=== PATIENT | female | born 1965 | race American Indian/Alaskan Native ===

== ENCOUNTER 2017-01-19 06:04 | Day surgery (SDC) | payer OTHER ==
[2017-01-19] MEDS ORDERED: WATER FOR IRRIG STERILE IR ONE (07:27)
[2017-01-19] MEDS ORDERED: DIPRIVAN 10 MG/ML IV ONE (07:30)
--- NOTE | 2017-01-19 07:38 | Anesthesia Consultation ---
Anesthesia Consult and Med Hx Date of service: 01/19/17 - Airway Anesthetic Teeth Evaluation: Good ROM Head & Neck: Adequate Mental/Hyoid Distance: Adequate Mallampati Class: Class II Intubation Access Assessment: Probably Good - Pulmonary Exam CTA: Yes - Cardiac Exam Cardiac Exam: RRR - Pre-Operative Health Status ASA Pre-Surgery Classification: ASA3 Proposed Anesthetic Plan: MAC - Pulmonary Hx Smoking: No Hx Sleep Apnea: Yes (CPAP) - Cardiovascular System Hx Hypertension: No (on high cholesterol meds) - Other Systems Hx Obesity: Yes - Additional Comments Anesthesia Medical History Comments: NAC
--- NOTE | 2017-01-19 07:39 | Anesthesia Day of Surgery ---
Anesthesia Day of Surgery - Day of Surgery Patient Examined: Yes Patient H&P Reviewed: Yes Patient is NPO: Yes
[2017-01-19] MEDS ORDERED: NACL 0.9% 1000 ML 1,000 ML IV SCH (08:00)
--- NOTE | 2017-01-19 08:46 | Post Anesthesia Evaluation ---
- Post Anesthesia Evaluation Patient Participated: Yes Airway Patent: Yes Stable Respiratory Function: Yes Nausea/Vomiting: No Temp > 96.8F: Yes Pain Manageable: Yes Adequeate Hydration: Yes Anesthesia Complications: No Block Receding Appropriately: Not Applicable Patient on Ventilator: No
--- NOTE | 2017-01-19 08:50 | Discharge Summary ---
Providers - Providers Date of discharge: 01/19/17 Attending physician: YOLIS KENNEDY Primary care physician: BETH GREER Hospitalization Condition: Good Procedures: egd Disposition: DC- TO HOME OR SELFCARE Core Measure Documentation - Palliative Care Palliative Care/ Comfort Measures: Not Applicable - Core Measures Any of the following diagnoses?: none Exam - Physical Exam Narrative exam: unchanged from pre-op - Constitutional Vitals: Temp Pulse Resp BP Pulse Ox 98 F 60 16 130/70 98 01/19/17 07:57 01/19/17 07:57 01/19/17 07:57 01/19/17 07:57 01/19/17 07:57 Plan Activity: no restrictions Weight Bearing Status: Full Weight Bearing Diet: regular Follow up with: BETH GREER DO [Primary Care Provider] - 7 Days
--- NOTE | 2017-01-19 09:00 | Operative Report ---
Operative Report Operative Report: OPERATIVE REPORT - EGD DATE 01/19/17 SURGERY: Upper endoscopy. SURGEON: Mario Bermudez M.D. PROCEDURE: 1. EGD 2. gastric mucosal biopsy PRE OP DX: dyspepsia POST OP DX: 1. hiatal hernia 2. gastritis TYPE OF ANESTHESIA: MAC. ESTIMATED BLOOD LOSS: None. COMPLICATIONS: None. SPECIMENS REMOVED: None. FINDINGS: 1. Small hiatal hernia. 2. Otherwise, normal esophagus, stomach and first portion of duodenum. INDICATIONS:INDICATION FOR PROCEDURE: Patient is a 51-year-old female with a long history of morbid obesity. She is planned to have a weight loss procedure and is here for preoperative planning EGD. We are looking for any pathology that may be prohibitive for planned bariatric surgery. PROCEDURE DETAILS: After consent was reviewed, patient was taken back to the operating room where patient was placed in the left lateral decubitus position and a bite block was placed in the mouth. After a time-out was called, MAC anesthesia was initiated. I then passed the endoscope into her oropharynx, into her esophagus, visualized the entire esophagus, which was all within normal limits. I then visualized the stomach and the first portion of the duodenum and there were no abnormalities I could clearly visualize with the exception of patchy cobble stoning of the mucosa consistent with chronic gastritis. A forceps biopsy was performed of the mucosa. I then retroflexed the scope in the stomach and visualized the hiatus and I could see a moderate sized hiatal hernia. I then desufflated the stomach and removed the endoscope. Patient tolerated procedure well and was transferred to recovery room in good and stable condition.
[2017-01-19 11:29] VITALS: BP 111/70
== END 2017-01-19 06:05 | disposition home or self-care (01) ==
LOC: GIO 06:04
PROVIDERS: ATTEND Specialist
DX: K31.89 Other diseases of stomach and duodenum (principal); K44.9 Diaphragmatic hernia without obstruction or gangrene; I10 Essential (primary) hypertension; E66.01 Morbid (severe) obesity due to excess calories; E78.00 Pure hypercholesterolemia, unspecified; Z90.49 Acquired absence of other specified parts of digestive tract; Z98.890 Other specified postprocedural states
CPT/HCPCS: 43239; 88305; 88342; J2704; J7030

== ENCOUNTER 2017-02-10 16:49 | Emergency (ER) | payer OTHER ==
[2017-02-10 17:40] LABS: Bacteria,Urine 1+ /HPF (Negative); Bilirubin,Urine SM (Negative); Blood,Urine MOD (Negative); Ketones,Urine 80 mg/dL (Negative); Leukocyte Esterase,Urine LG (Negative); Mucus,Urine 3+ /HPF; Nitrite,Urine NEG (Negative)
[2017-02-10 17:43] LABS: Basophils % (Auto) 0.6 % (0.0-1.8); Eosinophils % (Auto) 1.6 % (0.0-4.3); Mean Corpuscular HGB Conc 33 % (30-34); Mean Corpuscular Hemoglobin 30 pg (28-32); Mean Corpuscular Volume 89 fl (79-97); Platelet Count 262 K/mm3 (140-440); Red Blood Count 4.71 M/mm3 (3.65-5.03); Red Cell Distribution Width 13.7 % (13.2-15.2); White Blood Count 9.7 K/mm3 (4.5-11.0)
[2017-02-10 17:58] LABS: Anion Gap 24 mmol/L; BUN/Creatinine Ratio 30; Blood Urea Nitrogen 18 mg/dL (7-17); Calcium 9.9 mg/dL (8.4-10.2); Carbon Dioxide 25 mmol/L (22-30); Chloride 99.2 mmol/L (98-107); Glucose 106 mg/dL (65-100); Potassium 3.8 mmol/L (3.6-5.0); Sodium 144 mmol/L (137-145)
[2017-02-11] MEDS ORDERED: ZOFRAN IV ONE (01:49)
[2017-02-11] MEDS ORDERED: NACL 0.9% 1000 ML 1,000 ML IV ONE (01:50)
--- NOTE | 2017-02-11 02:53 | Emergency Department Report ---
<HARLEEN HUGGINS - Last Filed: 02/11/17 07:36> ED General Adult HPI - General Chief complaint: Nausea/Vomiting/Diarrhea Stated complaint: VOMITING Time Seen by Provider: 02/11/17 01:48 - Related Data Home Medications Medication Instructions Recorded Confirmed Last Taken Estradiol 0.5 mg PO DAILY 01/19/17 01/19/17 01/19/17 Folic Acid 1 mg PO DAILY 01/19/17 01/19/17 01/19/17 Lovastatin 20 mg PO DAILY 01/19/17 01/19/17 01/19/17 Progesterone Micronized 200 mg PO HS 01/19/17 01/19/17 01/19/17 Cholecalciferol Vit D3 [Vitamin D3] 5,000 unit PO QDAY 01/23/17 01/23/17 Previous Rx's Medication Instructions Recorded Last Taken Type Magnesium Citrate 295 ml PO ONCE #1 solution 02/11/17 Unknown Rx Ondansetron [Zofran TAB] 4 mg PO Q8HR PRN #15 tablet 02/11/17 Unknown Rx Allergies Allergy/AdvReac Type Severity Reaction Status Date / Time No Known Allergies Allergy Verified 01/19/17 18:40 ED Review of Systems ROS: Stated complaint: VOMITING Other details as noted in HPI ED Past Medical Hx - Medications Home Medications: Home Medications Medication Instructions Recorded Confirmed Last Taken Type Estradiol 0.5 mg PO DAILY 01/19/17 01/19/17 01/19/17 History Folic Acid 1 mg PO DAILY 01/19/17 01/19/17 01/19/17 History Lovastatin 20 mg PO DAILY 01/19/17 01/19/17 01/19/17 History Progesterone Micronized 200 mg PO HS 01/19/17 01/19/17 01/19/17 History Cholecalciferol Vit D3 [Vitamin D3] 5,000 unit PO QDAY 01/23/17 01/23/17 History Magnesium Citrate 295 ml PO ONCE #1 solution 02/11/17 Unknown Rx Ondansetron [Zofran TAB] 4 mg PO Q8HR PRN #15 tablet 02/11/17 Unknown Rx ED Course Vital Signs 02/10/17 02/11/17 02/11/17 16:56 03:54 04:00 Temperature 99.2 F 98.3 F Pulse Rate 98 H 79 Respiratory 18 14 Rate Blood Pressure 133/90 132/99 Blood Pressure [Right] O2 Sat by Pulse 98 98 Oximetry 02/11/17 02/11/17 02/11/17 04:16 04:30 04:46 Temperature Pulse Rate 86 82 73 Respiratory 12 15 16 Rate Blood Pressure 132/99 133/81 132/99 Blood Pressure [Right] O2 Sat by Pulse Oximetry 02/11/17 02/11/17 02/11/17 05:00 05:15 05:58 Temperature Pulse Rate 78 70 97 H Respiratory 16 17 12 Rate Blood Pressure 125/78 125/78 125/78 Blood Pressure [Right] O2 Sat by Pulse Oximetry 02/11/17 02/11/17 02/11/17 06:06 06:16 06:30 Temperature Pulse Rate 93 H 82 94 H Respiratory 17 16 17 Rate Blood Pressure 125/78 125/78 121/88 Blood Pressure [Right] O2 Sat by Pulse Oximetry 02/11/17 07:38 Temperature Pulse Rate 88 Respiratory 16 Rate Blood Pressure Blood Pressure 129/84 [Right] O2 Sat by Pulse 99 Oximetry - Consultations Consultation #1: 02/11/17 07:[address] Snell callback, and I notified her of the negative CAT scan studies. Patient is being discharged. ED Medical Decision Making - Lab Data Result diagrams: 02/10/17 17:22 02/10/17 17:22 Critical care attestation.: If time is entered above; I have spent that time in minutes in the direct care of this critically ill patient, excluding procedure time. ED Disposition Clinical Impression: Nausea and vomiting Qualifiers: Vomiting type: unspecified Vomiting Intractability: unspecified Qualified Code( s): R11.2 - Nausea with vomiting, unspecified Constipation Qualifiers: Constipation type: unspecified constipation type Qualified Code(s): K59.00 - Constipation, unspecified Disposition: DC-01 TO HOME OR SELFCARE Condition: Stable Instructions: Acute Nausea and Vomiting (ED) Prescriptions: Magnesium Citrate 295 ml PO ONCE #1 solution Ondansetron [Zofran TAB] 4 mg PO Q8HR PRN #15 tablet PRN Reason: Nausea Referrals: [facility] [Other] - 3-5 Days Time of Disposition: 07:36 <YESSENIA HOYOS - Last Filed: 10/15/17 21:15> ED General Adult HPI - General Source: patient Mode of arrival: Ambulatory Limitations: No Limitations - History of Present Illness Initial comments: Patient is a 51-year-old female history of gastric bypass and obesity who presents with nausea vomiting and constipation which has been going on for the last 3 weeks. Patient states however that the nausea and vomiting has gotten very severe for the last 3 days. Patient states that it's very hard for her to keep anything down. She also hasn't had much of a bowel movement in the last 3 weeks. She states that she had a small bowel movement on Sunday using docusate. The bowel movement was very hard. She denies having any abdominal pain or having any chest pain or shortness of breath. Patient's vomit is nonbloody nonbilious. ED Review of Systems Constitutional: denies: chills, fever Eyes: denies: eye pain, eye discharge, vision change ENT: denies: ear pain, throat pain Respiratory: denies: cough, shortness of breath, wheezing Cardiovascular: denies: chest pain, palpitations Endocrine: no symptoms reported Gastrointestinal: nausea, vomiting. 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) Hx HIV: No Additional medical history: morbid obesity - Surgical History Past Surgical History?: Yes Hx Appendectomy: Yes Additional Surgical History: Gastric sleeve 01-23-2017 - Social History Smoking Status: Never Smoker Substance Use Type: Alcohol, Non Opiate Pain, Prescribed ED Physical Exam - General Limitations: No Limitations General appearance: alert, in distress - Head Head exam: Present: atraumatic, normocephalic - Eye Eye exam: Present: normal appearance - ENT ENT exam: Present: mucous membranes dry - Neck Neck exam: Present: normal inspection - Respiratory Respiratory exam: Present: normal lung sounds bilaterally. Absent: respiratory distress - Cardiovascular Cardiovascular Exam: Present: normal rhythm, tachycardia. Absent: systolic murmur, diastolic murmur, rubs, gallop - GI/Abdominal GI/Abdominal exam: Present: soft, normal bowel sounds - Neurological Exam Neurological exam: Present: alert, oriented X3 - Psychiatric Psychiatric exam: Present: normal affect, normal mood - Skin Skin exam: Present: warm, dry, intact, normal color. Absent: rash ED Medical Decision Making - Lab Data Result diagrams: 02/10/17 17:22 02/11/17 06:56 Lab Results 02/10/17 02/10/17 02/10/17 Range/Units 17:18 17:22 17:22 WBC 9.7 (4.5-11.0) K/mm3 RBC 4.71 (3.65-5.03) M/mm3 Hgb 14.0 (10.1-14.3) gm/dl Hct 42.0 (30.3-42.9) % MCV 89 (79-97) fl MCH 30 (28-32) pg MCHC 33 (30-34) % RDW 13.7 (13.2-15.2) % Plt Count 262 (140-440) K/mm3 Lymph % (Auto) 10.8 L (13.4-35.0) % [place] % (Auto) 9.9 H (0.0-7.3) % Eos % (Auto) 1.6 (0.0-4.3) % Baso % (Auto) 0.6 (0.0-1.8) % Lymph # 1.1 L (1.2-5.4) K/mm3 [place] # 1.0 H (0.0-0.8) K/mm3 Eos # 0.2 (0.0-0.4) K/mm3 Baso # 0.1 (0.0-0.1) K/mm3 Seg Neutrophils % 77.1 H (40.0-70.0) % Seg Neutrophils # 7.5 (1.8-7.7) K/mm3 Carbon Dioxide 25 (22-30) mmol/L BUN 18 H (7-17) mg/dL Creatinine 0.6 L (0.7-1.2) mg/dL Estimated GFR > 60 ml/min BUN/Creatinine Ratio 30 % Glucose 106 H (65-100) mg/dL Calcium 9.9 (8.4-10.2) mg/dL Urine Color [place] (Yellow) Urine Turbidity Clear (Clear) Urine pH 5.0 (5.0-7.0) Ur Specific [place] 1.032 H (1.003-1.030) Urine Protein 100 mg/dl (Negative) mg/dL Urine Glucose (UA) Neg (Negative) mg/dL Urine Ketones 80 (Negative) mg/dL Urine Blood Mod (Negative) Urine Nitrite Neg (Negative) Urine Bilirubin Sm (Negative) Urine Ictotest Negative (Negative) Urine Urobilinogen 4.0 (<2.0) mg/dL Ur Leukocyte Esterase Lg (Negative) Urine WBC (Auto) 33.0 H (0.0-6.0) /HPF Urine RBC (Auto) 53.0 (0.0-6.0) /HPF U Epithel Cells (Auto) 17.0 H (0-13.0) /HPF Urine Bacteria (Auto) 1+ (Negative) /HPF Hyaline Casts 6 /LPF Urine Mucus 3+ /HPF - Medical Decision Making Chief medical diagnosis: Bowel obstruction Differential medical diagnosis: Hypokalemia, gastritis, GERD CBC, CMP, IV hydration, IV Zofran and CT abdomen and pelvis with oral contrast Patient has been able to tolerate by mouth CT scan shows no acute process in the abdomen no blockage. I will send patient home after Dr. Snell calls back. I will sign out patient to Dr. Ramirez I will send patient home with mag citrate and Zofran to go home for her nausea. Discussed plan with patient patient MRSA plan additional verbal discharge instructions were given. ED Disposition Is pt being admited?: No Does the pt Need Aspirin: No
[2017-02-11] MEDS ORDERED: MAGNESIUM SULFATE 2GM/50ML 2 GM/50 ML BAG IV ONE (04:54)
--- NOTE | 2017-02-11 06:50 | Cat Scan Report ---
FINAL REPORT EXAM: CT ABDOMEN PELVIS W CON HISTORY: n/v and constipation recent gastric bypass surgery TECHNIQUE: Routine axial imaging was obtained of the abdomen pelvis following intravenous injection of iodinated contrast. Sagittal and coronal reconstructions were reviewed. FINDINGS: The lung bases are clear. Pleural fluid is not seen. There is a moderate size hiatal hernia at the GE junction. The liver is normal in size and reveals several low-density foci in the right hepatic lobe measure up to 14 millimeters in diameter. These do not appear to be simple cysts. They may represent hemangiomas. The gallbladder, pancreas, spleen and adrenal glands appear normal. The kidneys enhance normally. There are postsurgical changes the stomach compatible with gastric bypass surgery. The vascular structures enhance normally. The bowel loops are normal in caliber. There is no evidence of adenopathy. In the pelvis the uterus is normal in size and contains of fluid in the endometrial cavity. There is a small amount of free fluid in the cul-de-sac. The bladder appears normal. The skeletal structures reveal arthritic changes in the L5-S1 level in the lumbar spine. IMPRESSION: Previous gastric bypass surgery. No acute process in the abdomen. Nonspecific low-density foci in the right hepatic lobe as described. With these represent hemangiomas is uncertain. Ultrasonography of the liver is recommended for further evaluation. Nonspecific fluid and thickening of the endometrial cavity. Pelvic sonography is recommended for further evaluation. Small amount of free fluid in the cul-de-sac.
[2017-02-11] MEDS ORDERED: PHENERGAN PO ONE (07:14)
[2017-02-11 07:39] VITALS: BP 129/84
[2017-02-11 07:39] LABS: BUN/Creatinine Ratio 43; Blood Urea Nitrogen 17 mg/dL (7-17); Calcium 9.4 mg/dL (8.4-10.2); Carbon Dioxide 18 mmol/L (22-30); Chloride 103.8 mmol/L (98-107); Glucose 116 mg/dL (65-100); Potassium 3.6 mmol/L (3.6-5.0); Sodium 143 mmol/L (137-145)
[2017-02-11 07:49] LABS: Anion Gap 25 mmol/L
== END 2017-02-11 07:47 | disposition home or self-care (01) ==
LOC: ED 16:49
DX: K59.00 Constipation, unspecified (principal)
CPT/HCPCS: 36415; 74177; 80048; 81001; 85025; 96361; 96365; 96375; 99284; J2405; J3475; J7030; Q9967; Q0169

== ENCOUNTER 2017-03-07 17:08 | Inpatient (IN) | payer OTHER ==
[2017-03-07] MEDS ORDERED: MYLICON PO PRN (17:13)
[2017-03-07] MEDS ORDERED: APRESOLINE IV PRN (17:13)
[2017-03-07] MEDS ORDERED: PHENERGAN PR SCH (18:00)
[2017-03-07] MEDS ORDERED: NACL 0.9% 1000 ML 1,000 ML IV SCH (18:00)
[2017-03-07] MEDS ORDERED: LACTATED RINGERS 1,000 ML IV SCH ×2 (18:00→22:00)
[2017-03-07 20:27] LABS: Basophils % (Auto) 0.4 % (0.0-1.8); Eosinophils % (Auto) 0.2 % (0.0-4.3); Hemoglobin 12.5 gm/dl (10.1-14.3); Mean Corpuscular HGB Conc 33 % (30-34); Mean Corpuscular Hemoglobin 29 pg (28-32); Mean Corpuscular Volume 89 fl (79-97); Platelet Count 232 K/mm3 (140-440); Red Blood Count 4.27 M/mm3 (3.65-5.03); Red Cell Distribution Width 13.8 % (13.2-15.2); White Blood Count 9.1 K/mm3 (4.5-11.0)
[2017-03-07 20:46] LABS: Alanine Aminotransferase 12 units/L (7-56); Albumin 3.6 g/dL (3.9-5); Albumin/Globulin Ratio 1.1 %; Alkaline Phosphatase 53 units/L (35-129); Anion Gap 17 mmol/L; BUN/Creatinine Ratio 18; Blood Urea Nitrogen 11 mg/dL (7-17); Calcium 9.2 mg/dL (8.4-10.2); Carbon Dioxide 30 mmol/L (22-30); Chloride 94.3 mmol/L (98-107); Glucose 118 mg/dL (65-100); Sodium 138 mmol/L (137-145); Total Protein 6.8 g/dL (6.3-8.2)
[2017-03-07] MEDS ORDERED: MAGNESIUM SULFATE 2GM/50ML 2 GM/50 ML BAG IV ONE (22:00)
[2017-03-07] MEDS: ZOFRAN IV SCH (23:44)
[2017-03-07] MEDS: REGLAN IV SCH (23:44)
[2017-03-08] MEDS: ATIVAN IV SCH ×4 (00:16→18:00)
[2017-03-08] MEDS: REGLAN IV SCH ×4 (00:18→18:00)
[2017-03-08] MEDS: ZOFRAN IV SCH ×7 (00:19→22:50)
[2017-03-08] MEDS: PROTONIX IV SCH ×2 (00:54→11:43)
[2017-03-08] MEDS: KCL 10MEQ/100ML 10 MEQ/100 ML BAG IV SCH ×8 (00:57→20:18)
[2017-03-08] MEDS ORDERED: MAGNESIUM SULFATE 2GM/50ML 2 GM/50 ML BAG IV ONE (05:00)
[2017-03-08] MEDS: 1: FOLVITE 1 MG, INFUVITE 10 ML, VITAMIN B-1 100 MG in NACL 0.9% 1000 ML 988.8 ML 2: NA IV SCH (06:07)
[2017-03-08 07:58] LABS: Anion Gap 17 mmol/L; BUN/Creatinine Ratio 17; Blood Urea Nitrogen 10 mg/dL (7-17); Calcium 8.8 mg/dL (8.4-10.2); Carbon Dioxide 30 mmol/L (22-30); Chloride 97.5 mmol/L (98-107); Glucose 108 mg/dL (65-100); Potassium 3.2 mmol/L (3.6-5.0); Sodium 141 mmol/L (137-145)
[2017-03-08 07:59] LABS: Basophils % (Auto) 0.1 % (0.0-1.8); Eosinophils % (Auto) 0.9 % (0.0-4.3); Hematocrit 36.5 % (30.3-42.9); Hemoglobin 11.9 gm/dl (10.1-14.3); Mean Corpuscular HGB Conc 33 % (30-34); Mean Corpuscular Hemoglobin 29 pg (28-32); Mean Corpuscular Volume 88 fl (79-97); Platelet Count 221 K/mm3 (140-440); Red Blood Count 4.14 M/mm3 (3.65-5.03); Red Cell Distribution Width 14.2 % (13.2-15.2); White Blood Count 7.8 K/mm3 (4.5-11.0)
[2017-03-08] MEDS: LOVENOX SUB-Q SCH (11:43)
--- NOTE | 2017-03-08 14:48 | Fluoroscopy Report ---
UPPER GI SERIES WITH AIR-CONTRAST History: Nausea and vomiting, history of gastric sleeve surgery. Findings: Deglutition is normal. There is no evidence for aspiration. The esophagus is normal caliber and mucosal pattern throughout. Gastric sleeve surgical changes are identified. There is a moderate to large hiatal hernia which appears to mildly obstruct. Half of the stomach is located in the thoracic cavity. There appears to be mild delay in esophageal and hiatal hernia emptying at the level of the diaphragm. The distal stomach, duodenal bulb and duodenal sweep are within normal limits. No mucosal defect is appreciated. Proximal small bowel loops are normal. Impression: Gastric sleeve surgical changes. Moderate to large hiatal hernia with evidence of mild obstruction as described.
--- NOTE | 2017-03-08 18:32 | History and Physical Report ---
History of Present Illness Date of examination: 03/08/17 Date of admission: 03/07/17 17:13 Chief complaint: Nausea, vomiting History of present illness: 52 yo AAF w/ PMH of obesity and laparoscopic sleeve gastrectomy on 01/23/2017 presents with nausea and vomiting. Pt states the vomiting began 3 weeks after surgery and denies any vomiting immediately post-op. Pt can tolerate liquids when they don't make her nauseous/vomit although has only been eating ice chips since admission. Is not yet eating solid foods since procedure. Denies abdominal pain, admits to flatulence but has not had a recent bowel movement. She was seen and eval in the ER 02/10 for nausea and vomiting. She was given fluids and started to tolerated liquids and was sent home. She denies fever chills, chest pain. She denies vomiting immediately after surgery. Medications such as zofran did not help at home with the vomiting . Past History Past Medical History: hypertension, seizures (1997 due to meningitis). denies: HIV/AIDS Past Surgical History: appendectomy (), Other (Lap sleeve gastrectomy Dec 2016) Social history: denies: smoking, alcohol abuse Family history: no significant family history Medications and Allergies Allergies Allergy/AdvReac Type Severity Reaction Status Date / Time No Known Allergies Allergy Verified 01/19/17 18:40 Home Medications Medication Instructions Recorded Confirmed Last Taken Type Estradiol [Estradiol] 0.5 mg PO DAILY 01/19/17 03/08/17 01/19/17 History Folic Acid [Folvite] 1 mg PO DAILY 01/19/17 03/08/17 01/19/17 History Lovastatin [Altoprev] 20 mg PO DAILY 01/19/17 03/08/17 01/19/17 History Progesterone, Micronized 100 mg PO QDAY 01/19/17 03/08/17 01/19/17 History [Prometrium] Cholecalciferol Vit D3 [Vitamin D3] 5,000 unit PO QDAY 01/23/17 03/08/17 History Magnesium Citrate 295 ml PO ONCE #1 solution 02/11/17 03/08/17 Unknown Rx Ondansetron [Zofran TAB] 4 mg PO Q8HR PRN #15 tablet 02/11/17 03/08/17 Unknown Rx Active Meds: Active Medications Enoxaparin Sodium (Lovenox) 40 mg SUB-Q QDAY [facility] Last Admin: 03/08/17 11:43 Dose: 40 mg Hydralazine HCl (Apresoline) 10 mg IV Q6H PRN PRN Reason: SBP > 150 Folic Acid 1 mg/ Multivitamins /Minerals 10 ml/ Thiamine HCl 100 mg/ Sodium Chloride 1,000 mls @ 125 mls/hr IV .BY DURATION [facility] Last Admin: 03/08/17 06:07 Dose: 125 mls/hr Sodium Chloride (Nacl 0.9% 1000 Ml) 1,000 mls @ 125 mls/hr IV .BY DURATION [facility] Lactated Ringer's (Lactated Ringers) 1,000 mls @ 150 mls/hr IV DIRECT [facility] Lorazepam (Ativan) 0.5 mg IV Q8H [facility] Last Admin: 03/08/17 11:44 Dose: 0.5 mg Metoclopramide HCl (Reglan) 10 mg IV Q6H [facility] Last Admin: 03/08/17 05:43 Dose: 10 mg Ondansetron HCl (Zofran) 4 mg IV Q4H [facility] Last Admin: 03/08/17 11:43 Dose: 4 mg Pantoprazole Sodium (Protonix) 40 mg IV DAILY [facility] Last Admin: 03/08/17 11:43 Dose: 40 mg Promethazine HCl (Phenergan) 12.5 mg GA ONCE [facility] Last Admin: 03/07/17 21:08 Dose: 12.5 mg Simethicone (Mylicon) 80 mg PO Q6H PRN PRN Reason: Gas pain Review of Systems - Constitutional no fever, no chills - EENT Ears, nose, mouth and throat: no tinnitis - Cardiovascular no chest pain, no syncope, no shortness of breath - Respiratory no cough, no shortness of breath - Gastrointestinal nausea, vomiting, other (per hpi), no abdominal pain, no diarrhea, no constipation - Genitourinary Genitourinary: no dysuria, no urinary frequency, no urgency - Muskuloskeletal no arm numbness/tingling, no low back pain, no shooting leg pain, no leg numbness/tingling, no redness of joints - Integumentary no rash, no pruritis - Neurological no weakness, no numbness, no headaches - Psychiatric no anxiety, no depression Exam Vital Signs Temp Pulse Resp BP Pulse Ox 99.5 F 74 16 124/78 100 03/07/17 19:54 03/07/17 19:54 03/07/17 19:54 03/07/17 19:54 03/07/17 19:54 - General physical appearance Positive: well developed, well nourished, no distress - Eyes Positive: normal occular movement - Neck Positive: trachea midline, no venous distension - Respiratory Positive: normal expansion, normal respiratory effort, clear to auscultation - Cardiovascular Rhythm: regular Heart Sounds: Present: S1 & S2 - Extremities Extremities: pulses intact, No edema, normal temperature, normal color - Abdomen Abdomen: Present: soft, bowel sounds normal, surgical scars (clean dry intact. no erythema ). Absent: tender, distended, guarding, rigid Hernia: other (non hernias noted ) - Neurologic Neurologic: alert and oriented to time, place and person Results - Labs 03/08/17 06:57 03/08/17 06:57 Abnormal lab results 03/07/17 03/07/17 03/08/17 Range/Units 20:16 20:16 06:57 Lymph % (Auto) 8.5 L 10.8 L (13.4-35.0) % [place] % (Auto) 9.8 H 10.5 H (0.0-7.3) % Lymph # 0.8 L 0.8 L (1.2-5.4) K/mm3 [place] # 0.9 H (0.0-0.8) K/mm3 Seg Neutrophils % 81.1 H 77.7 H (40.0-70.0) % Potassium 3.0 L (3.6-5.0) mmol/L Chloride 94.3 L (98-107) mmol/L Creatinine 0.6 L (0.7-1.2) mg/dL Glucose 118 H (65-100) mg/dL Phosphorus 1.40 L (2.5-4.5) mg/dL Magnesium 1.60 L (1.7-2.3) mg/dL Albumin 3.6 L (3.9-5) g/dL 03/08/17 Range/Units 06:57 Lymph % (Auto) (13.4-35.0) % [place] % (Auto) (0.0-7.3) % Lymph # (1.2-5.4) K/mm3 [place] # (0.0-0.8) K/mm3 Seg Neutrophils % (40.0-70.0) % Potassium 3.2 L (3.6-5.0) mmol/L Chloride 97.5 L (98-107) mmol/L Creatinine 0.6 L (0.7-1.2) mg/dL Glucose 108 H (65-100) mg/dL Phosphorus (2.5-4.5) mg/dL Magnesium 2.40 H (1.7-2.3) mg/dL Albumin (3.9-5) g/dL Diabetes panel 03/07/17 03/08/17 Range/Units 20:16 06:57 Sodium 138 141 (137-145) mmol/L Potassium 3.0 L 3.2 L (3.6-5.0) mmol/L Chloride 94.3 L 97.5 L (98-107) mmol/L Carbon Dioxide 30 30 (22-30) mmol/L BUN 11 10 (7-17) mg/dL Creatinine 0.6 L 0.6 L (0.7-1.2) mg/dL Glucose 118 H 108 H (65-100) mg/dL Calcium 9.2 8.8 (8.4-10.2) mg/dL AST 10 (5-40) units/L ALT 12 (7-56) units/L Alkaline Phosphatase 53 (35-129) units/L Total Protein 6.8 (6.3-8.2) g/dL Albumin 3.6 L (3.9-5) g/dL Calcium panel 03/07/17 03/08/17 Range/Units 20:16 06:57 Calcium 9.2 8.8 (8.4-10.2) mg/dL Phosphorus 1.40 L 3.10 D (2.5-4.5) mg/dL Albumin 3.6 L (3.9-5) g/dL Pituitary panel 03/07/17 03/08/17 Range/Units 20:16 06:57 Sodium 138 141 (137-145) mmol/L Potassium 3.0 L 3.2 L (3.6-5.0) mmol/L Chloride 94.3 L 97.5 L (98-107) mmol/L Carbon Dioxide 30 30 (22-30) mmol/L BUN 11 10 (7-17) mg/dL Creatinine 0.6 L 0.6 L (0.7-1.2) mg/dL Glucose 118 H 108 H (65-100) mg/dL Calcium 9.2 8.8 (8.4-10.2) mg/dL Adrenal panel 03/07/17 03/08/17 Range/Units 20:16 06:57 Sodium 138 141 (137-145) mmol/L Potassium 3.0 L 3.2 L (3.6-5.0) mmol/L Chloride 94.3 L 97.5 L (98-107) mmol/L Carbon Dioxide 30 30 (22-30) mmol/L BUN 11 10 (7-17) mg/dL Creatinine 0.6 L 0.6 L (0.7-1.2) mg/dL Glucose 118 H 108 H (65-100) mg/dL Calcium 9.2 8.8 (8.4-10.2) mg/dL Total Bilirubin 0.70 (0.1-1.2) mg/dL AST 10 (5-40) units/L ALT 12 (7-56) units/L Alkaline Phosphatase 53 (35-129) units/L Total Protein 6.8 (6.3-8.2) g/dL Albumin 3.6 L (3.9-5) g/dL Assessment and Plan 52 yo AAF w/ PMH obesity and lap sleeve gastrectomy in December 2016 presents with nausea and vomiting. 1. Hernia of gastric sleeve - Upper GI series performed, shows upper portion of sleeve has herniated into chest however contrast is able to pass thru sleeve and into small intestine. Pt likely vomited at some point when at home and caused sutures to break at the site of her prev. hiatal hernia repair. - Pt to remain NPO to avoid further vomiting. Ok to eat ice chips - Plan for ppn/midline - Plan for OR Sunday for hernia repair - IVF for hydration 2. Hypokalemia - Likely 2/2 vomiting - KCl and Mag sulfate administered today - Last K+ 3.2, will continue to monitor and replete as necessary - Repeat labs in AM 3. hx fo HTN. will restart bb at low dose. GI and DVT proph Will continue to monitor.
[2017-03-08 21:49] LABS: Anion Gap 16 mmol/L; BUN/Creatinine Ratio 13; Blood Urea Nitrogen 8 mg/dL (7-17); Calcium 8.2 mg/dL (8.4-10.2); Carbon Dioxide 29 mmol/L (22-30); Chloride 95.5 mmol/L (98-107); Glucose 86 mg/dL (65-100); Potassium 3.5 mmol/L (3.6-5.0); Sodium 137 mmol/L (137-145)
[2017-03-09] MEDS: REGLAN IV SCH ×4 (00:20→18:00)
[2017-03-09] MEDS: 1: FOLVITE 1 MG, INFUVITE 10 ML, VITAMIN B-1 100 MG in NACL 0.9% 1000 ML 988.8 ML 2: NA IV SCH (01:34)
[2017-03-09] MEDS: ATIVAN IV SCH ×3 (01:34→18:33)
[2017-03-09] MEDS: ZOFRAN IV SCH ×5 (02:07→18:40)
[2017-03-09 04:23] LABS: Basophils % (Auto) 0.8 % (0.0-1.8); Eosinophils % (Auto) 5.6 % (0.0-4.3); Hematocrit 33.6 % (30.3-42.9); Hemoglobin 11.1 gm/dl (10.1-14.3); Mean Corpuscular HGB Conc 33 % (30-34); Mean Corpuscular Hemoglobin 30 pg (28-32); Mean Corpuscular Volume 90 fl (79-97); Platelet Count 193 K/mm3 (140-440); Red Blood Count 3.75 M/mm3 (3.65-5.03); Red Cell Distribution Width 14.2 % (13.2-15.2); White Blood Count 5.5 K/mm3 (4.5-11.0)
[2017-03-09 04:39] LABS: Anion Gap 13 mmol/L; BUN/Creatinine Ratio 13; Blood Urea Nitrogen 8 mg/dL (7-17); Calcium 8.4 mg/dL (8.4-10.2); Carbon Dioxide 30 mmol/L (22-30); Chloride 96.6 mmol/L (98-107); Glucose 85 mg/dL (65-100); Potassium 3.2 mmol/L (3.6-5.0); Sodium 136 mmol/L (137-145)
[2017-03-09 06:29] LABS: INR 1.05 (0.87-1.13)
--- NOTE | 2017-03-09 09:44 | Progress Note ---
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 1. Hernia of gastric sleeve - Upper GI series performed, shows upper portion of sleeve has herniated into chest however contrast is able to pass thru sleeve and into small intestine. Pt likely vomited at some point when at home and caused sutures to break at the site of her prev. hiatal hernia repair. - Pt tolerating ice chips and sips of water well, advanced to Vick I diet - Plan for PPN/midline - Plan for OR Sunday for hernia repair - IVF for hydration 2. Hypokalemia - Likely 2/2 vomiting - KCl and Mag sulfate administered yesterday - K+ this AM was 3.2, Mg normal at 2 - 4 KCl riders (10mEq) ordered for today, repeat BMP tonight - Will continue to monitor and replete as necessary 3. Hx fo HTN - Has not taken home BP meds in 2+ months - Hydralazine IV ordered if SBP > 150 - Will continue to monitor and restart home BP meds if necessary GI and DVT prophylaxis: Lovenox, Protonix. Will continue to monitor. Subjective Date of service: 03/09/17 Patient Reports: Positive: no new complaints, feels better. Negative: diarrhea , nausea, vomiting Narrative: Pt reports no nausea, vomiting, or diarrhea overnight. Denies n/v and abdominal pain this AM. Requests broth as she is feeling hungry and has only had ice chips since admission. Inquired about blood pressure medications - pt was on Metoprolol Succ ER as a home med for BP at one point but states that she hasn't taken this in a couple of months. No other concerns or complaints today. Objective Vital Signs - 12hr 03/09/17 03/09/17 03/09/17 00:35 04:02 08:38 Temperature 98.8 F 98.5 F 98.7 F Pulse Rate 72 63 66 Respiratory 18 18 18 Rate Blood Pressure 110/72 108/71 114/76 O2 Sat by Pulse 96 98 99 Oximetry - General physical appearance well developed, well nourished, no distress - Eyes normal occular movement - Neck trachea midline - Respiratory normal expansion, normal respiratory effort - Abdomen soft, not tender, bowel sounds normal, not distended, not rebound, not guarding - Integumentary no rash - Neurologic normal coordination, normal sensation - Psychiatric oriented to time, oriented to person, oriented to place, speech is normal - Labs 03/09/17 04:05 03/09/17 04:05 Diabetes panel 03/08/17 03/09/17 Range/Units 21:11 04:05 Sodium 137 136 L (137-145) mmol/L Potassium 3.5 L 3.2 L (3.6-5.0) mmol/L Chloride 95.5 L 96.6 L (98-107) mmol/L Carbon Dioxide 29 30 (22-30) mmol/L BUN 8 8 (7-17) mg/dL Creatinine 0.6 L 0.6 L (0.7-1.2) mg/dL Glucose 86 85 (65-100) mg/dL Calcium 8.2 L 8.4 (8.4-10.2) mg/dL Calcium panel 03/08/17 03/09/17 Range/Units 21:11 04:05 Calcium 8.2 L 8.4 (8.4-10.2) mg/dL Phosphorus 2.60 (2.5-4.5) mg/dL Pituitary panel 03/08/17 03/09/17 Range/Units 21:11 04:05 Sodium 137 136 L (137-145) mmol/L Potassium 3.5 L 3.2 L (3.6-5.0) mmol/L Chloride 95.5 L 96.6 L (98-107) mmol/L Carbon Dioxide 29 30 (22-30) mmol/L BUN 8 8 (7-17) mg/dL Creatinine 0.6 L 0.6 L (0.7-1.2) mg/dL Glucose 86 85 (65-100) mg/dL Calcium 8.2 L 8.4 (8.4-10.2) mg/dL Adrenal panel 03/08/17 03/09/17 Range/Units 21:11 04:05 Sodium 137 136 L (137-145) mmol/L Potassium 3.5 L 3.2 L (3.6-5.0) mmol/L Chloride 95.5 L 96.6 L (98-107) mmol/L Carbon Dioxide 29 30 (22-30) mmol/L BUN 8 8 (7-17) mg/dL Creatinine 0.6 L 0.6 L (0.7-1.2) mg/dL Glucose 86 85 (65-100) mg/dL Calcium 8.2 L 8.4 (8.4-10.2) mg/dL
[2017-03-09] MEDS: PROTONIX IV SCH (10:52)
[2017-03-09] MEDS: LOVENOX SUB-Q SCH (10:58)
[2017-03-09] MEDS: KCL 10MEQ/100ML 10 MEQ/100 ML BAG IV SCH ×4 (11:00→15:32)
--- NOTE | 2017-03-09 15:25 | XRay Report ---
PORTABLE CHEST INDICATION: Right arm PICC placement. COMPARISON: None similar. FINDINGS: Portable, frontal chest radiograph demonstrates new right upper extremity PICC tip along the distal SVC, approximately 2 cm above the cavoatrial junction. Normal cardiomediastinal silhouette, clear lungs, EKG leads and intact bones. Colonic contrast. CONCLUSION: Interval uncomplicated right upper extremity PICC placement, as described. Thank you for the opportunity to participate in this patient's care.
[2017-03-09 19:43] LABS: Anion Gap 15 mmol/L; BUN/Creatinine Ratio 16; Blood Urea Nitrogen 8 mg/dL (7-17); Calcium 7.9 mg/dL (8.4-10.2); Carbon Dioxide 26 mmol/L (22-30); Chloride 101.7 mmol/L (98-107); Glucose 82 mg/dL (65-100); Sodium 139 mmol/L (137-145)
[2017-03-09 19:58] LABS: Potassium 4.1 mmol/L (3.6-5.0)
[2017-03-09] MEDS ORDERED: TPN ADULT 2,016 ML IV SCH (20:00)
[2017-03-10] MEDS: ZOFRAN IV SCH ×4 (03:22→22:00)
[2017-03-10] MEDS: REGLAN IV SCH ×3 (03:23→18:34)
[2017-03-10] MEDS: ATIVAN IV SCH ×3 (03:23→18:36)
[2017-03-10 06:47] LABS: Basophils % (Auto) 0.5 % (0.0-1.8); Eosinophils % (Auto) 4.7 % (0.0-4.3); Hematocrit 30.2 % (30.3-42.9); Hemoglobin 9.6 gm/dl (10.1-14.3); Mean Corpuscular HGB Conc 32 % (30-34); Mean Corpuscular Hemoglobin 29 pg (28-32); Mean Corpuscular Volume 92 fl (79-97); Platelet Count 181 K/mm3 (140-440); Red Blood Count 3.29 M/mm3 (3.65-5.03); Red Cell Distribution Width 14.8 % (13.2-15.2); White Blood Count 5.2 K/mm3 (4.5-11.0)
[2017-03-10 07:13] LABS: Anion Gap TNR mmol/L; Blood Urea Nitrogen TNR mg/dL (7-17); Carbon Dioxide TNR mmol/L (22-30); Chloride TNR mmol/L (98-107)
[2017-03-10 07:14] LABS: BUN/Creatinine Ratio TNR; Calcium TNR mg/dL (8.4-10.2); Glucose TNR mg/dL (65-100); Magnesium TNR mg/dL (1.7-2.3); Phosphorous TNR mg/dL (2.5-4.5); Potassium TNR mmol/L (3.6-5.0); Sodium TNR mmol/L (137-145)
--- NOTE | 2017-03-10 09:07 | Progress Note ---
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 1. Hernia of gastric sleeve - Upper GI series performed, shows upper portion of sleeve has herniated into chest however contrast is able to pass thru sleeve and into small intestine. Pt likely vomited at some point when at home and caused sutures to break at the site of her prev. hiatal hernia repair. - Pt has been tolerating the clear liquids well. Will continue Vick I diet for now with tpn. Advancing pt diet could cause her to vomiting which may worsen the hernia. the patient understands she will remain on a Vick I diet. - Denies any further nausea or vomiting - Plan for tpn/picc line. Picc line placed yesterday due to unable to tolerate the kcl iv riders via midline. She was too nauseas to take the po version. - Plan for OR Sunday for hernia repair - IVF for hydration 2. Hypokalemia- resolved. - Improved to 4.1 last night - KCl and Mag sulfate administered yesterday - BMP to be repeated this am due to possible lab error - Will continue to monitor and replete as necessary 3. Hx fo HTN- controlled. - Has not taken home BP meds in 2+ months - Hydralazine IV ordered if SBP > 150 - BP 92/70 this am, trending lower - Will continue to monitor and restart home BP meds if necessary GI and DVT prophylaxis: Lovenox, Protonix. Will continue to monitor. Subjective Date of service: 03/10/17 Patient Reports: Positive: no new complaints, feels better, tolerating liquids well (Tolerating the clear liquids well, would like to advance to full liquid diet), bowel movement (last night), afebrile. Negative: nausea, vomiting, shortness of breath Narrative: Pt says that she had a "good night" and has been tolerating the clear liquids well w/o nausea or vomiting. Pt would like to advance her diet as possible. She is going to add more of the protein packets to the clear liquids to ensure she can tolerate the protein. Pt had one loose BM last night. Denies abdominal pain , chest pain, or SOB. Objective Vital Signs - 12hr 03/09/17 03/10/17 03/10/17 21:26 00:59 04:49 Temperature 98.2 F 98.7 F 98.0 F Pulse Rate 74 68 64 Respiratory 18 20 16 Rate Blood Pressure 118/66 115/75 111/62 O2 Sat by Pulse 98 96 100 Oximetry 03/10/17 08:12 Temperature 98.1 F Pulse Rate 83 Respiratory 18 Rate Blood Pressure 92/70 O2 Sat by Pulse 98 Oximetry - General physical appearance well developed, well nourished, no distress - Eyes normal occular movement - ENT no hearing loss - Respiratory normal expansion, normal respiratory effort - Abdomen soft, not tender, bowel sounds normal, not distended, not masses, not rebound, not guarding - Integumentary no rash - Neurologic normal coordination, normal sensation - Musculoskeletal normal gait - Psychiatric oriented to time, oriented to person, oriented to place, speech is normal - Labs 03/10/17 Unknown 03/10/17 Unknown Diabetes panel 03/09/17 03/10/17 Range/Units 19:12 06:25 Sodium 139 TNR (137-145) mmol/L Potassium 4.1 D TNR (3.6-5.0) mmol/L Chloride 101.7 TNR (98-107) mmol/L Carbon Dioxide 26 TNR (22-30) mmol/L BUN 8 TNR (7-17) mg/dL Creatinine 0.5 L TNR (0.7-1.2) mg/dL Glucose 82 TNR (65-100) mg/dL Calcium 7.9 L TNR (8.4-10.2) mg/dL Calcium panel 03/09/17 03/10/17 Range/Units 19:12 06:25 Calcium 7.9 L TNR (8.4-10.2) mg/dL Phosphorus TNR Pituitary panel 03/09/17 03/10/17 Range/Units 19:12 06:25 Sodium 139 TNR (137-145) mmol/L Potassium 4.1 D TNR (3.6-5.0) mmol/L Chloride 101.7 TNR (98-107) mmol/L Carbon Dioxide 26 TNR (22-30) mmol/L BUN 8 TNR (7-17) mg/dL Creatinine 0.5 L TNR (0.7-1.2) mg/dL Glucose 82 TNR (65-100) mg/dL Calcium 7.9 L TNR (8.4-10.2) mg/dL Adrenal panel 03/09/17 03/10/17 Range/Units 19:12 06:25 Sodium 139 TNR (137-145) mmol/L Potassium 4.1 D TNR (3.6-5.0) mmol/L Chloride 101.7 TNR (98-107) mmol/L Carbon Dioxide 26 TNR (22-30) mmol/L BUN 8 TNR (7-17) mg/dL Creatinine 0.5 L TNR (0.7-1.2) mg/dL Glucose 82 TNR (65-100) mg/dL Calcium 7.9 L TNR (8.4-10.2) mg/dL
[2017-03-10 09:24] LABS: Hematocrit 33.9 % (30.3-42.9); Hemoglobin 11.1 gm/dl (10.1-14.3); Mean Corpuscular HGB Conc 33 % (30-34); Mean Corpuscular Hemoglobin 29 pg (28-32); Mean Corpuscular Volume 89 fl (79-97); Platelet Count 202 K/mm3 (140-440); Red Blood Count 3.83 M/mm3 (3.65-5.03); White Blood Count 5.7 K/mm3 (4.5-11.0)
[2017-03-10 09:44] LABS: Anion Gap 15 mmol/L; BUN/Creatinine Ratio 16; Blood Urea Nitrogen 8 mg/dL (7-17); Calcium 8.3 mg/dL (8.4-10.2); Carbon Dioxide 27 mmol/L (22-30); Chloride 96.1 mmol/L (98-107); Glucose 82 mg/dL (65-100); Potassium 3.7 mmol/L (3.6-5.0); Sodium 134 mmol/L (137-145)
[2017-03-10] MEDS: LOVENOX SUB-Q SCH (11:05)
[2017-03-10] MEDS: PROTONIX IV SCH (11:06)
[2017-03-10] MEDS ORDERED: TPN ADULT 2,016 ML IV SCH (20:00)
[2017-03-11] MEDS: ATIVAN IV SCH ×3 (01:38→20:09)
[2017-03-11] MEDS: ZOFRAN IV SCH ×6 (02:37→22:23)
[2017-03-11] MEDS: REGLAN IV SCH ×4 (06:11→17:33)
[2017-03-11 06:28] LABS: Basophils % (Auto) 0.7 % (0.0-1.8); Eosinophils % (Auto) 4.1 % (0.0-4.3); Hematocrit 33.8 % (30.3-42.9); Hemoglobin 10.9 gm/dl (10.1-14.3); Mean Corpuscular HGB Conc 32 % (30-34); Mean Corpuscular Hemoglobin 29 pg (28-32); Mean Corpuscular Volume 89 fl (79-97); Platelet Count 201 K/mm3 (140-440); Red Blood Count 3.78 M/mm3 (3.65-5.03); White Blood Count 4.9 K/mm3 (4.5-11.0)
[2017-03-11 06:43] LABS: INR 0.94 (0.87-1.13)
[2017-03-11 06:53] LABS: Anion Gap 13 mmol/L; BUN/Creatinine Ratio 20; Blood Urea Nitrogen 10 mg/dL (7-17); Calcium 8.1 mg/dL (8.4-10.2); Carbon Dioxide 27 mmol/L (22-30); Chloride 97.6 mmol/L (98-107); Glucose 100 mg/dL (65-100); Potassium 3.9 mmol/L (3.6-5.0); Sodium 134 mmol/L (137-145)
--- NOTE | 2017-03-11 08:36 | Progress Note ---
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 1. Paraesophagel hernia of gastric sleeve - Upper GI series performed, shows upper portion of sleeve has herniated into chest however contrast is able to pass thru sleeve and into small intestine. Pt likely vomited at some point when at home and caused sutures to break at the site of her prev. hiatal hernia repair. - Pt has been tolerating the clear liquids well. Will continue Vick I diet for now with tpn. Advancing pt diet could cause her to vomiting which may worsen the hernia. the patient understands she will remain on a Vick I diet. - Denies any further nausea or vomiting - Plan for OR Sunday for hernia repair- Consent obtained, NPO Sunday night - Pre-Op EKG completed- normal sinus rhythm - IVF for hydration 2. Hypokalemia- resolved; Hyponatremia - K+ 3.9, Na 134 - Continue TPN via picc and clear liq w/ electrolyte repletion - Will continue to monitor and replete as necessary 3. Hx fo HTN- controlled. - Has not taken home BP meds in 2+ months - Hydralazine IV ordered if SBP > 150 - BP 81/54 this am, trending lower- recheck -monitor - asymptomatic. lower bp occurs at night when pt sleeping. GI and DVT prophylaxis: Lovenox, Protonix. Will continue to monitor. Subjective Date of service: 03/11/17 Patient Reports: Positive: no new complaints, feels better, tolerating liquids well (drinking clear liquids w/ protein packets, tolerating well), diarrhea (1- 2x per day), afebrile. Negative: nausea, vomiting, shortness of breath Narrative: NAEON. Pt says she is "doing well." Ambulating OOB multiple times per day. Denies nausea or vomiting w/ some loose bowel movements throughout the day. Pt is tolerating the clear liquids w/ protein packets well. Denies Abdominal or Cx pain. Pt denies dizziness. afebrile. Objective Vital Signs - 12hr 03/10/17 03/11/17 23:23 03:57 Temperature 98.5 F 98.9 F Pulse Rate 64 79 Respiratory 16 16 Rate Blood Pressure 84/53 81/53 O2 Sat by Pulse 97 98 Oximetry - General physical appearance well developed, well nourished, no distress - Eyes normal occular movement - ENT no hearing loss - Respiratory normal expansion, normal respiratory effort - Abdomen soft, not tender, bowel sounds normal, not masses, not rebound, surgical scars ( healed ) - Integumentary no rash - Neurologic normal coordination, normal sensation - Musculoskeletal normal gait, normal posture - Psychiatric oriented to time, oriented to person, oriented to place, speech is normal - Labs 03/11/17 04:00 03/11/17 04:00 Diabetes panel 03/10/17 03/11/17 Range/Units Unknown 04:00 Sodium 134 L 134 L (137-145) mmol/L Potassium 3.7 3.9 (3.6-5.0) mmol/L Chloride 96.1 L 97.6 L (98-107) mmol/L Carbon Dioxide 27 27 (22-30) mmol/L BUN 8 10 (7-17) mg/dL Creatinine 0.5 L 0.5 L (0.7-1.2) mg/dL Glucose 82 100 (65-100) mg/dL Calcium 8.3 L 8.1 L (8.4-10.2) mg/dL Calcium panel 03/10/17 03/11/17 Range/Units Unknown 04:00 Calcium 8.3 L 8.1 L (8.4-10.2) mg/dL Phosphorus 2.40 L 2.70 (2.5-4.5) mg/dL Pituitary panel 03/10/17 03/11/17 Range/Units Unknown 04:00 Sodium 134 L 134 L (137-145) mmol/L Potassium 3.7 3.9 (3.6-5.0) mmol/L Chloride 96.1 L 97.6 L (98-107) mmol/L Carbon Dioxide 27 27 (22-30) mmol/L BUN 8 10 (7-17) mg/dL Creatinine 0.5 L 0.5 L (0.7-1.2) mg/dL Glucose 82 100 (65-100) mg/dL Calcium 8.3 L 8.1 L (8.4-10.2) mg/dL Adrenal panel 03/10/17 03/11/17 Range/Units Unknown 04:00 Sodium 134 L 134 L (137-145) mmol/L Potassium 3.7 3.9 (3.6-5.0) mmol/L Chloride 96.1 L 97.6 L (98-107) mmol/L Carbon Dioxide 27 27 (22-30) mmol/L BUN 8 10 (7-17) mg/dL Creatinine 0.5 L 0.5 L (0.7-1.2) mg/dL Glucose 82 100 (65-100) mg/dL Calcium 8.3 L 8.1 L (8.4-10.2) mg/dL
[2017-03-11] MEDS: LOVENOX SUB-Q SCH (09:33)
[2017-03-11] MEDS: PROTONIX IV SCH (12:18)
[2017-03-11] MEDS ORDERED: TPN ADULT 2,016 ML IV SCH (20:00)
[2017-03-12] MEDS: REGLAN IV SCH ×4 (00:36→20:29)
[2017-03-12] MEDS: ZOFRAN IV SCH ×6 (02:17→21:01)
[2017-03-12 06:05] LABS: Basophils % (Auto) 0.7 % (0.0-1.8); Eosinophils % (Auto) 4.7 % (0.0-4.3); Hematocrit 30.6 % (30.3-42.9); Hemoglobin 9.8 gm/dl (10.1-14.3); Mean Corpuscular HGB Conc 32 % (30-34); Mean Corpuscular Hemoglobin 30 pg (28-32); Mean Corpuscular Volume 93 fl (79-97); Platelet Count 181 K/mm3 (140-440); Red Blood Count 3.31 M/mm3 (3.65-5.03); Red Cell Distribution Width 14.4 % (13.2-15.2); White Blood Count 5.2 K/mm3 (4.5-11.0)
[2017-03-12 06:17] LABS: Anion Gap 15 mmol/L; BUN/Creatinine Ratio 18; Blood Urea Nitrogen 9 mg/dL (7-17); Carbon Dioxide 23 mmol/L (22-30); Chloride 91.9 mmol/L (98-107); Potassium 5.2 mmol/L (3.6-5.0); Sodium 125 mmol/L (137-145)
[2017-03-12 06:23] LABS: Glucose 589 mg/dL (65-100)
[2017-03-12] MEDS ORDERED: NACL 0.9% 500 ML 500 ML IV ONE (08:22)
[2017-03-12] MEDS ORDERED: NACL 0.9% 1000 ML 1,000 ML ONE (08:54)
[2017-03-12 09:33] LABS: Anion Gap 14 mmol/L; BUN/Creatinine Ratio 20; Blood Urea Nitrogen 10 mg/dL (7-17); Calcium 8.2 mg/dL (8.4-10.2); Carbon Dioxide 24 mmol/L (22-30); Chloride 97.9 mmol/L (98-107); Glucose 108 mg/dL (65-100); Potassium 3.8 mmol/L (3.6-5.0); Sodium 132 mmol/L (137-145)
[2017-03-12] MEDS: PROTONIX IV SCH (10:12)
[2017-03-12] MEDS: LOVENOX SUB-Q SCH (10:13)
[2017-03-12 11:00] LABS: Magnesium 1.8 mg/dL (1.7-2.3); Phosphorous 2.7 mg/dL (2.5-4.5)
--- NOTE | 2017-03-12 11:24 | Progress Note ---
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 1. Paraesophagel hernia of gastric sleeve - Upper GI series performed, shows upper portion of sleeve has herniated into chest however contrast is able to pass thru sleeve and into small intestine. Pt likely vomited at some point when at home and caused sutures to break at the site of her prev. hiatal hernia repair. - Pt has been tolerating the clear liquids well. Will continue Vick I diet for now with tpn. Advancing pt diet could cause her to vomiting which may worsen the hernia. the patient understands she will remain on a Vick I diet. - Denies any further nausea or vomiting - Plan for OR Sunday for hernia repair- Consent obtained, NPO Sunday night - Pre-Op EKG completed- normal sinus rhythm - IVF for hydration 2. Hypokalemia- resolved; Hyponatremia - K+ 3.9, Na 134 - Continue TPN via picc and clear liq w/ electrolyte repletion - Will continue to monitor and replete as necessary 3. Hx fo HTN- controlled. Now episodes of hypotension: -1L NS bolus given, will follow up v/s after bolus. -ativan and phenergren discontinued. -will monitor. Pt is not tachycardia or leukocytosis. . GI and DVT prophylaxis: Lovenox, Protonix. Will continue to monitor. Subjective Narrative: Pt seen and examined this am. She denies any n/v. She is ambulating. Overnight she had low bp with sys in the low 80s and high 70s. Overnight pt was not symptomatic. This am her bp was mid 80s sys and she stated she was dizzy. The right arm with manauel bp was 90s sys. Her map has maintained in the 60s. She has not been tachycardiac or febrile. afebrile Objective Vital Signs - 12hr 03/12/17 03/12/17 03/12/17 03:51 03:55 07:19 Temperature 98.0 F 98.2 F Pulse Rate 64 69 Respiratory 14 14 18 Rate Blood Pressure 67/35 92/48 Blood Pressure 80/47 [Left] O2 Sat by Pulse 95 98 Oximetry 03/12/17 03/12/17 03/12/17 07:50 07:55 08:38 Temperature 98.6 F Pulse Rate 80 80 73 Respiratory 18 18 20 Rate Blood Pressure 84/40 Blood Pressure 80/40 90/50 [Left] O2 Sat by Pulse 96 Oximetry - General physical appearance well developed, well nourished, no distress - Respiratory normal expansion, normal respiratory effort, clear to auscultation - Abdomen soft, other (non tender. scars healed well. no rebound no guarding. ) - Neurologic normal coordination, normal sensation - Musculoskeletal normal posture - Psychiatric oriented to time, oriented to person, oriented to place, speech is normal - Labs 03/12/17 05:50 03/12/17 08:33 Diabetes panel 03/12/17 03/12/17 Range/Units 05:50 08:33 Sodium 125 L D 132 L D (137-145) mmol/L Potassium 5.2 H D 3.8 D (3.6-5.0) mmol/L Chloride 91.9 L (98-107) mmol/L Carbon Dioxide 23 24 (22-30) mmol/L BUN 9 10 (7-17) mg/dL Creatinine 0.5 L 0.5 L (0.7-1.2) mg/dL Glucose 589 H* 108 H (65-100) mg/dL Calcium 8.0 L 8.2 L (8.4-10.2) mg/dL Calcium panel 03/12/17 03/12/17 03/12/17 Range/Units 05:50 08:33 08:33 Calcium 8.0 L 8.2 L (8.4-10.2) mg/dL Phosphorus 5.20 H D 2.70 D (2.5-4.5) mg/dL Pituitary panel 03/12/17 03/12/17 Range/Units 05:50 08:33 Sodium 125 L D 132 L D (137-145) mmol/L Potassium 5.2 H D 3.8 D (3.6-5.0) mmol/L Chloride 91.9 L (98-107) mmol/L Carbon Dioxide 23 24 (22-30) mmol/L BUN 9 10 (7-17) mg/dL Creatinine 0.5 L 0.5 L (0.7-1.2) mg/dL Glucose 589 H* 108 H (65-100) mg/dL Calcium 8.0 L 8.2 L (8.4-10.2) mg/dL Adrenal panel 03/12/17 03/12/17 Range/Units 05:50 08:33 Sodium 125 L D 132 L D (137-145) mmol/L Potassium 5.2 H D 3.8 D (3.6-5.0) mmol/L Chloride 91.9 L (98-107) mmol/L Carbon Dioxide 23 24 (22-30) mmol/L BUN 9 10 (7-17) mg/dL Creatinine 0.5 L 0.5 L (0.7-1.2) mg/dL Glucose 589 H* 108 H (65-100) mg/dL Calcium 8.0 L 8.2 L (8.4-10.2) mg/dL
--- NOTE | 2017-03-12 15:37 | Anesthesia Consultation ---
Anesthesia Consult and Med Hx Date of service: 03/12/17 - Airway Anesthetic Teeth Evaluation: Good ROM Head & Neck: Adequate Mental/Hyoid Distance: Adequate Mallampati Class: Class II Intubation Access Assessment: Probably Good - Pre-Operative Health Status ASA Pre-Surgery Classification: ASA2 Proposed Anesthetic Plan: General - Pulmonary Hx Smoking: No Hx Asthma: No COPD: No Hx Pneumonia: No Hx Sleep Apnea: Yes (uses cpap) - Cardiovascular System Hx Hypertension: Yes ("borderline" no meds) Hx Pacemaker: No Hx Internal Defibrillator: No Hx Heart Murmur: Yes - Central Nervous System Hx Seizures: Yes (1997 due to menningitis) Hx Psychiatric Problems: No - Gastrointestinal Hx Gastroesophageal Reflux Disease: Yes (nausea and vomiting, dysphagea) - Endocrine Hx End Stage Renal Disease: No - Other Systems Hx Alcohol Use: Yes (occas) Hx Cancer: No Hx Obesity: Yes - Additional Comments Anesthesia Medical History Comments: Gastric sleeve in December 2016, has N/V since, dyspahea, lost 60 lbs
[2017-03-12] MEDS ORDERED: TPN ADULT 2,016 ML IV SCH (20:00)
[2017-03-13] MEDS: REGLAN IV SCH ×4 (00:25→20:09)
[2017-03-13] MEDS: ZOFRAN IV SCH ×6 (02:21→21:58)
[2017-03-13] MEDS ORDERED: VERSED IV NR (07:00)
[2017-03-13] MEDS ORDERED: PEPCID IV NR (07:00)
[2017-03-13 08:06] LABS: Basophils % (Auto) 0.5 % (0.0-1.8); Eosinophils % (Auto) 4.7 % (0.0-4.3); Hematocrit 33.7 % (30.3-42.9); Hemoglobin 10.7 gm/dl (10.1-14.3); Mean Corpuscular HGB Conc 32 % (30-34); Mean Corpuscular Hemoglobin 29 pg (28-32); Mean Corpuscular Volume 89 fl (79-97); Platelet Count 212 K/mm3 (140-440); Red Blood Count 3.77 M/mm3 (3.65-5.03); Red Cell Distribution Width 14.6 % (13.2-15.2); White Blood Count 5.8 K/mm3 (4.5-11.0)
[2017-03-13 08:26] LABS: Anion Gap 17 mmol/L; BUN/Creatinine Ratio 18; Blood Urea Nitrogen 9 mg/dL (7-17); Calcium 8.1 mg/dL (8.4-10.2); Carbon Dioxide 24 mmol/L (22-30); Chloride 100.2 mmol/L (98-107); Glucose 115 mg/dL (65-100); Potassium 4.4 mmol/L (3.6-5.0); Sodium 137 mmol/L (137-145)
[2017-03-13] MEDS: PROTONIX IV SCH (09:44)
[2017-03-13] MEDS ORDERED: DILAUDID IV PRN (12:25)
[2017-03-13] MEDS ORDERED: PERCOCET 5/325 PO PRN (12:25)
[2017-03-13] MEDS: LACTATED RINGERS 1,000 ML IV SCH ×2 (14:40→21:03)
[2017-03-13] MEDS ORDERED: DIPRIVAN 10 MG/ML IV ONE (14:55)
[2017-03-13] MEDS ORDERED: SUBLIMAZE ONE (14:55)
[2017-03-13] MEDS ORDERED: FLAGYL 500 MG/100 ML 500 MG/100 ML BAG IV NR (14:56)
[2017-03-13] MEDS: LOVENOX SUB-Q SCH (14:58)
[2017-03-13] MEDS ORDERED: ANCEF/STERILE WATER 2 GM/20 ML IV NR (15:00)
[2017-03-13] MEDS ORDERED: XYLOCAINE MPF 2% ONE ×2 (15:04→17:11)
[2017-03-13] MEDS ORDERED: XYLOCAINE 1% 20 mL ONE (15:21)
[2017-03-13] MEDS ORDERED: MARCAINE 0.5% INFILTRATI ONE ×3 (15:21→16:40)
[2017-03-13] MEDS ORDERED: ZEMURON IV ONE ×2 (15:21→17:11)
[2017-03-13] MEDS ORDERED: DECADRON ONE (16:07)
[2017-03-13] MEDS ORDERED: XYLOCAINE 1% 20 mL IR ONE ×2 (16:37)
[2017-03-13] MEDS ORDERED: NACL 0.9% IR ONE ×3 (16:37)
[2017-03-13] MEDS ORDERED: NACL 0.9% 1000 ML IR ONE (16:38)
[2017-03-13] MEDS ORDERED: NEO SYNEPHRINE ONE (16:47)
[2017-03-13] MEDS ORDERED: NEO SYNEPHRINE/NS Syringe(OR USE) IV ONE (17:00)
[2017-03-13] MEDS ORDERED: ROBINUL ONE ×2 (17:32)
[2017-03-13] MEDS ORDERED: NEOSTIGMINE ONE (17:32)
[2017-03-13] MEDS ORDERED: DILAUDID ONE (17:35)
[2017-03-13] MEDS ORDERED: LACTATED RINGERS 1,000 ML ONE (17:42)
--- NOTE | 2017-03-13 18:18 | Post Anesthesia Evaluation ---
- Post Anesthesia Evaluation Patient Participated: Yes Airway Patent: Yes Stable Respiratory Function: Yes Temp > 96.8F: Yes Pain Manageable: Yes Adequeate Hydration: Yes Anesthesia Complications: No
[2017-03-13] MEDS: ATIVAN IV SCH ×2 (19:31→20:10)
[2017-03-13] MEDS ORDERED: TPN ADULT 2,016 ML IV SCH (20:00)
[2017-03-13] MEDS: PHENERGAN PR SCH (20:10)
[2017-03-14] MEDS: REGLAN IV SCH ×5 (00:23→23:53)
[2017-03-14] MEDS: PHENERGAN PR SCH ×4 (01:55→19:27)
[2017-03-14] MEDS: ATIVAN IV SCH ×3 (02:32→23:08)
[2017-03-14] MEDS: ZOFRAN IV SCH ×6 (02:32→23:09)
[2017-03-14] MEDS: DILAUDID IV PRN ×2 (03:03→11:16)
[2017-03-14 05:35] LABS: Basophils % (Auto) 0.4 % (0.0-1.8); Eosinophils % (Auto) 0.2 % (0.0-4.3); Hematocrit 31.7 % (30.3-42.9); Hemoglobin 10.4 gm/dl (10.1-14.3); Mean Corpuscular HGB Conc 33 % (30-34); Mean Corpuscular Hemoglobin 29 pg (28-32); Mean Corpuscular Volume 89 fl (79-97); Platelet Count 187 K/mm3 (140-440); Red Blood Count 3.58 M/mm3 (3.65-5.03); Red Cell Distribution Width 14.2 % (13.2-15.2); White Blood Count 9.6 K/mm3 (4.5-11.0)
[2017-03-14] MEDS: LACTATED RINGERS 1,000 ML IV SCH ×2 (05:45→15:12)
[2017-03-14 05:51] LABS: Anion Gap 14 mmol/L; BUN/Creatinine Ratio 28; Blood Urea Nitrogen 11 mg/dL (7-17); Calcium 8.2 mg/dL (8.4-10.2); Carbon Dioxide 26 mmol/L (22-30); Chloride 99.2 mmol/L (98-107); Glucose 139 mg/dL (65-100); Sodium 135 mmol/L (137-145)
[2017-03-14] MEDS: LOVENOX SUB-Q SCH (11:28)
[2017-03-14] MEDS: PROTONIX IV SCH (11:29)
--- NOTE | 2017-03-14 12:02 | Progress Note ---
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 1. Paraesophagel hernia of gastric sleeve - S/p 1 day of lap paraesophageal hernia repair - Pt has had mild abdominal pain- well controlled w/ pain medication - Zofran 4mg q4hr, Ativan 0.5mg q8hr Phenergin 25mg [place] for nausea - Reglan 10mg q6hr - spitting up small amt of frothy white substance intermittently - Pt has not had PO liquids but is encouraged to try sips to see how it is tolerated 2. Nutrition - Vick I diet; encouraged to continue sips of clear fluids - TPN via PICC running well @ 84ml/hr - discussed with nutrition to wean down tpn. - Monitor electrolytes and fluid tolerance - AM labs GI and DVT prophylaxis: Lovenox, Protonix. Dispo- pending no acute changes and tolerance to liquids, possible discharge tomorrow. F/u in office 1-2wks. Possibly will spend time living at her mother's in [place] for initial support. Will continue to monitor. Subjective Date of service: 03/14/17 Patient Reports: Positive: no new complaints, feels better, still having pain ( Abdominal pain, well controlled w/ medication), no bowel movement, vomiting ( frothy, white). Negative: diarrhea, shortness of breath Narrative: Pt is seen and examined at bedside w/ family present. Pt was tired from pain medication for some abdominal pain given prior to speaking with her. Pt says that she is overall comfortable. Denies nausea or BM. Has been spitting up some frothy, white mucus-like substance intermittently. She has not been drinking many liquids but says that she is going to try and take sips to see how she tolerates. She denies any vomiting or dry heaves.. Objective Vital Signs - 12hr 03/14/17 03/14/17 04:37 08:20 Temperature 98.3 F 99.0 F Pulse Rate 87 91 H Respiratory 18 20 Rate Blood Pressure 105/64 108/73 O2 Sat by Pulse 98 100 Oximetry - General physical appearance well developed, well nourished, no distress, other (tired appearing) - Eyes normal occular movement - ENT no congestion - Respiratory normal expansion, normal respiratory effort - Abdomen soft, tender (at incision sites), not distended, wound (incision sites appear clean and intact with some mild blood (dry) appearing on dressings) - Integumentary no rash - Neurologic normal coordination, normal sensation - Musculoskeletal normal gait - Psychiatric oriented to time, oriented to person, oriented to place, speech is normal - Labs 03/14/17 05:10 03/14/17 05:10 Diabetes panel 03/14/17 Range/Units 05:10 Sodium 135 L (137-145) mmol/L Potassium 4.0 (3.6-5.0) mmol/L Chloride 99.2 (98-107) mmol/L Carbon Dioxide 26 (22-30) mmol/L BUN 11 (7-17) mg/dL Creatinine 0.4 L (0.7-1.2) mg/dL Glucose 139 H (65-100) mg/dL Calcium 8.2 L (8.4-10.2) mg/dL Calcium panel 03/14/17 Range/Units 05:10 Calcium 8.2 L (8.4-10.2) mg/dL Phosphorus 2.50 (2.5-4.5) mg/dL Pituitary panel 03/14/17 Range/Units 05:10 Sodium 135 L (137-145) mmol/L Potassium 4.0 (3.6-5.0) mmol/L Chloride 99.2 (98-107) mmol/L Carbon Dioxide 26 (22-30) mmol/L BUN 11 (7-17) mg/dL Creatinine 0.4 L (0.7-1.2) mg/dL Glucose 139 H (65-100) mg/dL Calcium 8.2 L (8.4-10.2) mg/dL Adrenal panel 03/14/17 Range/Units 05:10 Sodium 135 L (137-145) mmol/L Potassium 4.0 (3.6-5.0) mmol/L Chloride 99.2 (98-107) mmol/L Carbon Dioxide 26 (22-30) mmol/L BUN 11 (7-17) mg/dL Creatinine 0.4 L (0.7-1.2) mg/dL Glucose 139 H (65-100) mg/dL Calcium 8.2 L (8.4-10.2) mg/dL
[2017-03-14] MEDS: D5LR 1,000 ML IV SCH (15:56)
[2017-03-14] MEDS ORDERED: TPN ADULT 2,016 ML IV SCH (20:00)
[2017-03-15] MEDS: ZOFRAN IV SCH ×6 (02:15→22:23)
[2017-03-15] MEDS: D5LR 1,000 ML IV SCH ×2 (02:15→12:52)
[2017-03-15] MEDS: PHENERGAN PR SCH ×4 (02:15→18:12)
[2017-03-15] MEDS: ATIVAN IV SCH ×3 (05:30→22:23)
[2017-03-15] MEDS: REGLAN IV SCH ×3 (06:41→17:48)
[2017-03-15 08:00] LABS: Alanine Aminotransferase 20 units/L (7-56); Albumin 2.4 g/dL (3.9-5); Albumin/Globulin Ratio 0.8 %; Alkaline Phosphatase 54 units/L (35-129); Anion Gap 10 mmol/L; BUN/Creatinine Ratio 16; Blood Urea Nitrogen 8 mg/dL (7-17); Calcium 8.2 mg/dL (8.4-10.2); Carbon Dioxide 28 mmol/L (22-30); Chloride 100.9 mmol/L (98-107); Glucose 103 mg/dL (65-100); Potassium 3.9 mmol/L (3.6-5.0); Sodium 135 mmol/L (137-145); Total Protein 5.4 g/dL (6.3-8.2)
[2017-03-15] MEDS: PROTONIX IV SCH (10:33)
[2017-03-15] MEDS: LOVENOX SUB-Q SCH (10:33)
[2017-03-15] MEDS ORDERED: MAGNESIUM SULFATE 2GM/50ML 2 GM/50 ML BAG IV ONE (12:00)
--- NOTE | 2017-03-15 15:59 | Progress Note ---
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 1. Paraesophagel hernia of gastric sleeve - S/p 2 day of lap paraesophageal hernia repair - Pt has had mild abdominal pain- well controlled w/ pain medication - Zofran 4mg q4hr, Ativan 0.5mg q8hr Phenergin 25mg [place] for nausea - Reglan 10mg q6hr - spitting up small amt of frothy white substance intermittently- no improvement compared to day prior. Will monitor during day. She cannot be discharged until she is able to tolerate liquids. 2. Nutrition - Vick I diet; encouraged to continue sips of clear fluids - TPN via PICC running well @ 84ml/hr - discussed with nutrition to continue tpn as she is not tolerating liquids well. Will wean tpn over 2 hrs once she is tolerating liquids. - Monitor electrolytes GI and DVT prophylaxis: Lovenox, Protonix. Dispo- pending no acute changes and tolerance to liquids, possible discharge tomorrow. F/u in office 1-2wks. Possibly will spend time living at her mother's in [place] for initial support. Will continue to monitor. Subjective Narrative: Pt continues to have frothing of spit and regurg of fluids after she drinks. She denies vomiting. Denies fever or chills. +pain at incision sites. Objective Vital Signs - 12hr 03/15/17 03/15/17 03/15/17 04:08 09:48 11:58 Temperature 99.3 F 98.5 F 99.1 F Pulse Rate 84 92 H Respiratory 18 16 16 Rate Blood Pressure 90/52 101/69 105/64 O2 Sat by Pulse 100 98 Oximetry 03/15/17 03/15/17 14:52 14:53 Temperature Pulse Rate Respiratory Rate Blood Pressure O2 Sat by Pulse 99 99 Oximetry - General physical appearance well developed, no pain - Respiratory normal expansion, normal respiratory effort - Abdomen soft, other ( tender at incision sites. no rebound no guarding. incision sites- dressing clean. umb dressing removed- incison intact. ) - Integumentary no rash, no growths - Neurologic normal coordination - Musculoskeletal normal posture - Psychiatric oriented to time, oriented to person, oriented to place, speech is normal - Labs 03/14/17 05:10 03/15/17 07:00 Diabetes panel 03/15/17 Range/Units 07:00 Sodium 135 L (137-145) mmol/L Potassium 3.9 (3.6-5.0) mmol/L Chloride 100.9 (98-107) mmol/L Carbon Dioxide 28 (22-30) mmol/L BUN 8 (7-17) mg/dL Creatinine 0.5 L (0.7-1.2) mg/dL Glucose 103 H (65-100) mg/dL Calcium 8.2 L (8.4-10.2) mg/dL AST 13 (5-40) units/L ALT 20 (7-56) units/L Alkaline Phosphatase 54 (35-129) units/L Total Protein 5.4 L (6.3-8.2) g/dL Albumin 2.4 L (3.9-5) g/dL Calcium panel 03/15/17 Range/Units 07:00 Calcium 8.2 L (8.4-10.2) mg/dL Phosphorus 2.40 L (2.5-4.5) mg/dL Albumin 2.4 L (3.9-5) g/dL Pituitary panel 03/15/17 Range/Units 07:00 Sodium 135 L (137-145) mmol/L Potassium 3.9 (3.6-5.0) mmol/L Chloride 100.9 (98-107) mmol/L Carbon Dioxide 28 (22-30) mmol/L BUN 8 (7-17) mg/dL Creatinine 0.5 L (0.7-1.2) mg/dL Glucose 103 H (65-100) mg/dL Calcium 8.2 L (8.4-10.2) mg/dL Adrenal panel 03/15/17 Range/Units 07:00 Sodium 135 L (137-145) mmol/L Potassium 3.9 (3.6-5.0) mmol/L Chloride 100.9 (98-107) mmol/L Carbon Dioxide 28 (22-30) mmol/L BUN 8 (7-17) mg/dL Creatinine 0.5 L (0.7-1.2) mg/dL Glucose 103 H (65-100) mg/dL Calcium 8.2 L (8.4-10.2) mg/dL Total Bilirubin 0.40 (0.1-1.2) mg/dL AST 13 (5-40) units/L ALT 20 (7-56) units/L Alkaline Phosphatase 54 (35-129) units/L Total Protein 5.4 L (6.3-8.2) g/dL Albumin 2.4 L (3.9-5) g/dL
[2017-03-15] MEDS ORDERED: TPN ADULT 2,016 ML IV SCH (20:00)
[2017-03-16] MEDS: PHENERGAN PR SCH ×4 (01:00→18:38)
[2017-03-16] MEDS: REGLAN IV SCH ×4 (01:10→18:33)
[2017-03-16] MEDS: ZOFRAN IV SCH ×6 (02:45→23:16)
[2017-03-16] MEDS: ATIVAN IV SCH ×3 (05:38→23:15)
--- NOTE | 2017-03-16 06:58 | Progress Note ---
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 1. Paraesophagel hernia of gastric sleeve - S/p 3 day of lap paraesophageal hernia repair - Zofran 4mg q4hr, Ativan 0.5mg q8hr Phenergin 25mg KS for nausea - Reglan 10mg q6hr - Still vomiting tsp of liquid she drinks intermittently, last time earlier this am. Able to tolerate PO more than previously. Will monitor during day. She cannot be discharged until she is able to tolerate liquids. 2. Nutrition - Vick I diet; encouraged to continue sips of clear fluids; mixing protein in her fluids that she can tolerate - TPN via PICC running well @ 84ml/hr - discussed with nutrition to continue tpn as she is not tolerating liquids well. Will wean tpn over 2 hrs once she is tolerating liquids. - Monitor electrolytes GI and DVT prophylaxis: Lovenox, Protonix. Dispo- pending no acute changes and tolerance to liquids, possible discharge tomorrow. F/u in office 1-2wks. Possibly will spend time living at her mother's in [place] for initial support. Will continue to monitor. Subjective Date of service: 03/16/17 Patient Reports: Positive: no new complaints, feels better (Comfortable, no abdominal pain), no bowel movement (Last BM was 3days ago), vomiting ( Intermittently vomiting tsp of liquid). Negative: nausea, shortness of breath Objective Vital Signs - 12hr 03/15/17 03/15/17 03/15/17 20:13 20:55 23:29 Temperature 99.6 F 99.3 F Pulse Rate 85 99 H Respiratory 18 16 Rate Blood Pressure 90/53 103/57 O2 Sat by Pulse 97 99 97 Oximetry 03/16/17 04:18 Temperature 98.9 F Pulse Rate 86 Respiratory 16 Rate Blood Pressure 101/67 O2 Sat by Pulse 98 Oximetry - General physical appearance well developed, no distress, no pain - Eyes normal occular movement - ENT no hearing loss - Respiratory normal expansion, normal respiratory effort, clear to auscultation - Abdomen soft, not tender, bowel sounds normal, not masses, not rebound - Integumentary no rash - Neurologic normal coordination, normal sensation - Musculoskeletal normal gait - Psychiatric oriented to time, oriented to person, oriented to place - Labs 03/14/17 05:10 03/15/17 07:00 Diabetes panel 03/15/17 Range/Units 07:00 Sodium 135 L (137-145) mmol/L Potassium 3.9 (3.6-5.0) mmol/L Chloride 100.9 (98-107) mmol/L Carbon Dioxide 28 (22-30) mmol/L BUN 8 (7-17) mg/dL Creatinine 0.5 L (0.7-1.2) mg/dL Glucose 103 H (65-100) mg/dL Calcium 8.2 L (8.4-10.2) mg/dL AST 13 (5-40) units/L ALT 20 (7-56) units/L Alkaline Phosphatase 54 (35-129) units/L Total Protein 5.4 L (6.3-8.2) g/dL Albumin 2.4 L (3.9-5) g/dL Calcium panel 03/15/17 Range/Units 07:00 Calcium 8.2 L (8.4-10.2) mg/dL Phosphorus 2.40 L (2.5-4.5) mg/dL Albumin 2.4 L (3.9-5) g/dL Pituitary panel 03/15/17 Range/Units 07:00 Sodium 135 L (137-145) mmol/L Potassium 3.9 (3.6-5.0) mmol/L Chloride 100.9 (98-107) mmol/L Carbon Dioxide 28 (22-30) mmol/L BUN 8 (7-17) mg/dL Creatinine 0.5 L (0.7-1.2) mg/dL Glucose 103 H (65-100) mg/dL Calcium 8.2 L (8.4-10.2) mg/dL Adrenal panel 03/15/17 Range/Units 07:00 Sodium 135 L (137-145) mmol/L Potassium 3.9 (3.6-5.0) mmol/L Chloride 100.9 (98-107) mmol/L Carbon Dioxide 28 (22-30) mmol/L BUN 8 (7-17) mg/dL Creatinine 0.5 L (0.7-1.2) mg/dL Glucose 103 H (65-100) mg/dL Calcium 8.2 L (8.4-10.2) mg/dL Total Bilirubin 0.40 (0.1-1.2) mg/dL AST 13 (5-40) units/L ALT 20 (7-56) units/L Alkaline Phosphatase 54 (35-129) units/L Total Protein 5.4 L (6.3-8.2) g/dL Albumin 2.4 L (3.9-5) g/dL
[2017-03-16 09:25] LABS: Basophils % (Auto) 0.6 % (0.0-1.8); Eosinophils % (Auto) 7.2 % (0.0-4.3); Hematocrit 27.3 % (30.3-42.9); Hemoglobin 9.2 gm/dl (10.1-14.3); Mean Corpuscular HGB Conc 34 % (30-34); Mean Corpuscular Hemoglobin 30 pg (28-32); Mean Corpuscular Volume 90 fl (79-97); Platelet Count 197 K/mm3 (140-440); Red Blood Count 3.05 M/mm3 (3.65-5.03); Red Cell Distribution Width 14.6 % (13.2-15.2); White Blood Count 4.7 K/mm3 (4.5-11.0)
[2017-03-16 09:41] LABS: Anion Gap 14 mmol/L; BUN/Creatinine Ratio 16; Blood Urea Nitrogen 8 mg/dL (7-17); Calcium 7.7 mg/dL (8.4-10.2); Carbon Dioxide 26 mmol/L (22-30); Chloride 103.6 mmol/L (98-107); Glucose 100 mg/dL (65-100); Potassium 4.3 mmol/L (3.6-5.0); Sodium 139 mmol/L (137-145)
[2017-03-16] MEDS: LOVENOX SUB-Q SCH (10:39)
[2017-03-16] MEDS: PROTONIX PO SCH (10:40)
[2017-03-16] MEDS ORDERED: TRANSDERM-SCOP TD SCH (11:00)
[2017-03-16] MEDS ORDERED: TPN ADULT 2,016 ML IV SCH (20:00)
[2017-03-17] MEDS: REGLAN IV SCH ×3 (00:52→13:00)
[2017-03-17] MEDS: PHENERGAN PR SCH ×3 (01:00→13:00)
[2017-03-17] MEDS: ZOFRAN IV SCH ×4 (02:53→14:00)
[2017-03-17] MEDS: ATIVAN IV SCH ×2 (05:00→13:00)
[2017-03-17 07:27] LABS: Basophils % (Auto) 0.7 % (0.0-1.8); Eosinophils % (Auto) 6.8 % (0.0-4.3); Hematocrit 27.2 % (30.3-42.9); Hemoglobin 9.1 gm/dl (10.1-14.3); Mean Corpuscular HGB Conc 34 % (30-34); Mean Corpuscular Hemoglobin 30 pg (28-32); Mean Corpuscular Volume 89 fl (79-97); Platelet Count 216 K/mm3 (140-440); Red Blood Count 3.05 M/mm3 (3.65-5.03); Red Cell Distribution Width 14.8 % (13.2-15.2); White Blood Count 4.8 K/mm3 (4.5-11.0)
[2017-03-17 07:49] LABS: Anion Gap 15 mmol/L; BUN/Creatinine Ratio 18; Blood Urea Nitrogen 9 mg/dL (7-17); Carbon Dioxide 26 mmol/L (22-30); Chloride 102.6 mmol/L (98-107); Glucose 118 mg/dL (65-100); Potassium 4.3 mmol/L (3.6-5.0); Sodium 139 mmol/L (137-145)
[2017-03-17] MEDS: LOVENOX SUB-Q SCH (09:49)
[2017-03-17] MEDS: PROTONIX PO SCH (09:49)
--- NOTE | 2017-03-17 10:40 | Progress Note ---
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 1. Paraesophagel hernia of gastric sleeve - S/p 4 day of lap paraesophageal hernia repair - Zofran 4mg q4hr, Ativan 0.5mg q8hr, Phenergin 25mg PRN for nausea - Reglan 10mg q6hr - No nausea/vomiting overnight or this AM - Tolerating clear liquids well 2. Nutrition - Vick I diet; encouraged to continue sips of clear fluids; mixing protein in her fluids that she can tolerate - TPN via PICC running well @ 84ml/hr - wean TPN for possible d/c, pt will not need home TPN - Continue to monitor electrolytes GI and DVT prophylaxis: Lovenox, Protonix. Dispo: F/u in office 1-2wks. Possibly will spend time living at her mother's in [place] for initial support. Will continue to monitor. Subjective Date of service: 03/17/17 Patient Reports: Positive: no new complaints, feels better, pain is less, tolerating liquids well, afebrile. Negative: nausea, vomiting, shortness of breath Objective Vital Signs - 12hr 03/17/17 03/17/17 03/17/17 04:56 08:05 10:00 Temperature 99.0 F 97.9 F Pulse Rate 94 H 81 Respiratory 16 15 20 Rate Blood Pressure 101/57 88/48 O2 Sat by Pulse 96 98 Oximetry - General physical appearance well developed, well nourished, no distress - Eyes normal occular movement - Neck trachea midline, no venous distension - Respiratory normal expansion, normal respiratory effort - Abdomen soft, tender (Over RLQ incision), not distended, not rebound, not guarding, surgical scars (Clean, dry, in tact) - Integumentary no rash - Neurologic normal coordination, normal sensation - Psychiatric oriented to time, oriented to person, oriented to place, speech is normal, memory intact - Labs 03/17/17 07:05 03/17/17 07:05 Diabetes panel 03/17/17 Range/Units 07:05 Sodium 139 (137-145) mmol/L Potassium 4.3 (3.6-5.0) mmol/L Chloride 102.6 (98-107) mmol/L Carbon Dioxide 26 (22-30) mmol/L BUN 9 (7-17) mg/dL Creatinine 0.5 L (0.7-1.2) mg/dL Glucose 118 H (65-100) mg/dL Calcium 8.0 L (8.4-10.2) mg/dL Calcium panel 03/17/17 Range/Units 07:05 Calcium 8.0 L (8.4-10.2) mg/dL Phosphorus 3.60 (2.5-4.5) mg/dL Pituitary panel 03/17/17 Range/Units 07:05 Sodium 139 (137-145) mmol/L Potassium 4.3 (3.6-5.0) mmol/L Chloride 102.6 (98-107) mmol/L Carbon Dioxide 26 (22-30) mmol/L BUN 9 (7-17) mg/dL Creatinine 0.5 L (0.7-1.2) mg/dL Glucose 118 H (65-100) mg/dL Calcium 8.0 L (8.4-10.2) mg/dL Adrenal panel 03/17/17 Range/Units 07:05 Sodium 139 (137-145) mmol/L Potassium 4.3 (3.6-5.0) mmol/L Chloride 102.6 (98-107) mmol/L Carbon Dioxide 26 (22-30) mmol/L BUN 9 (7-17) mg/dL Creatinine 0.5 L (0.7-1.2) mg/dL Glucose 118 H (65-100) mg/dL Calcium 8.0 L (8.4-10.2) mg/dL
--- NOTE | 2017-03-17 11:33 | Operative Report ---
PREOPERATIVE DIAGNOSIS: Incarcerated hiatal hernia in a patient who is postoperative sleeve gastrectomy. POSTOPERATIVE DIAGNOSIS: Incarcerated hiatal hernia in a patient who is postoperative sleeve gastrectomy. PROCEDURE: Laparoscopic reduction of incarcerated fundus of the stomach from the hiatal hernia with laparoscopic hiatal hernia repair. SURGEON: Cosmo Owen MD SWEAT BOX ATTENDANT: Champ Kelley. ANESTHESIA: General. BRIEF HISTORY AND PHYSICAL: This patient had a laparoscopic sleeve gastrectomy and presented to the Emergency Room with nausea and vomiting and abdominal pain several weeks later. The patient had a CT scan that showed that she had her stomach that had herniated up into the hiatus into her chest. She was therefore taken to the operating room for repair. DESCRIPTION OF PROCEDURE: The patient was placed on the operating table in dorsal supine position and following satisfactory induction of general anesthesia, the abdomen was prepped using Hibiclens solution and then draped in sterile fashion. Using a sharp skin knife, a skin incision was made at the umbilicus and Veress needle was placed for insufflation of CO2 and after adequate insufflation of CO2, a 10-mm trocar was then placed into the umbilicus. Several of the trocars were also placed to access the abdominal cavity. Then, using a combination of the LigaSure, all the adhesions were taken down in a serial fashion. The liver was retracted up and was noted that the staple line previously was indeed incorporated and going up through the hiatus into the chest. We therefore freed this up using blunt tissue dissection along with the LigaSure and pulled the stomach back into the abdominal cavity until we had approximately 3 cm of intra-abdominal esophagus. After this, these defects were noted to be quite large and we therefore repaired these with interrupted U sutures of 0 Surgidac. This was accomplished and then the stomach was then tacked to the hiatal crura using interrupted simple sutures of 0 Surgidac. The patient tolerated the procedure very well. The abdominal cavity was then desufflated. The fascial defect at the umbilicus was closed using interrupted simple suture of #1 PDS and the skin was closed using interrupted subdermal sutures of 4-0 Monocryl. Steri-Strips were applied to the wound. The patient tolerated the procedure well and was sent back to recovery room in satisfactory condition. [facility]# [id number] TDD/CORDELIA
--- NOTE | 2017-03-17 12:55 | Discharge Summary ---
Providers - Providers Date of Admission: 03/07/17 17:13 Attending physician: YOLIS KENNEDY 03/08/17 15:19 Consult to PICC Line RN [CONS] Routine Reason For Exam: ppn needed. prolonged npo Type Line:: Midline 03/08/17 15:21 Consult to Dietitian/Nutrition [CONS] Routine Physician Instructions: Reason For Exam: ppn needed, prolonged npo until surgery Reason for Consult: Write/Manage TPN/PPN 03/09/17 12:20 Consult to PICC Line RN [CONS] Routine Reason For Exam: painful midline site Type Line:: PICC Primary care physician: CLOTH CHECKER Hospitalization Reason for admission: nausea and vomiting Condition: Good Pertinent studies: Upper GI series Procedures: laparoscopic repair of paraesophageal hernia Hospital course: 52 y.o. F presented to the ER with nausea and vomiting. She previously had a laparoscopic sleeve gastrectomy on 01/23/2017. A couple weeks after her surgery she started to have nausea and vomiting. The vomiting worsened and she could not tolerate po intake. She was admitted to the hospital with nausea and pain relief meds. She did not progress therefore an upper GI was conducted was showed a hernia of the gastric sleeve via the hiatus. She was started on TPN via picc line due to poor oral intake was then taken to the operating room for lap repair of the paraesophageal hernia. After surgery she slowly progressed her diet and prior to discharge she was tolerating clears without n/v. Over her hospital course her albumin decreased. The delay in albumin decreasing reflects her malnutrition prior to admisson hence the need for TPN . Prior to discharge she was tolerating liquids without vomiting. Her picc line was removed prior to discharge. Disposition: DC-01 TO HOME OR SELFCARE Core Measure Documentation - Palliative Care Palliative Care/ Comfort Measures: Not Applicable - Core Measures Any of the following diagnoses?: none Exam - Physical Exam Narrative exam: no change from prior - Constitutional Vitals: Temp Pulse Resp BP Pulse Ox 98.7 F 98 H 15 102/60 98 03/17/17 12:14 03/17/17 12:14 03/17/17 12:14 03/17/17 12:14 03/17/17 12:14 Plan Activity: other (no lifting >15lbs for 6 weeks ) Diet: clear liquids (sugar free clears, then a couple of days advance diet ) Wound: keep clean and dry, other (remove all outer dressings tomorrow but keep sterstrips in place until they fall off on own. keep belly button dry. Keep wounds dry. May shower with water to back) Follow up with: PRIMARY CARE, [Primary Care Provider] - 7 Days YOLIS KENNEDY MD [Staff Physician] - 14 Days
[2017-03-17 15:20] VITALS: BP 104/55
== END 2017-03-17 17:00 | disposition home or self-care (01) | DRG 327 ==
LOC: 3A 17:08 → UNDOADMIN 17:08 → 3A 17:13
PROVIDERS: ADMIT Specialist; ATTEND Specialist
PROC: 02HV33Z Insertion of Infusion Device into Superior Vena Cava, Percutaneous Approach (ICD-10-PCS; 2017-03-09)
PROC: 0BQT4ZZ Repair Diaphragm, Percutaneous Endoscopic Approach (ICD-10-PCS; principal; 2017-03-17)
DX: K44.0 Diaphragmatic hernia with obstruction, without gangrene (principal); E87.1 Hypo-osmolality and hyponatremia; E87.6 Hypokalemia; G47.30 Sleep apnea, unspecified; K21.9 Gastro-esophageal reflux disease without esophagitis; E66.9 Obesity, unspecified; Z90.49 Acquired absence of other specified parts of digestive tract; Z79.899 Other long term (current) drug therapy; Z68.33 Body mass index [BMI] 33.0-33.9, adult
CPT/HCPCS: 36415; 71010; 74247; 80048; 80053; 81025; 82962; 83735; 84100; 84484; 85025; 85027; 85610; 86850; 86900; 86901; 93005; 93010; A4217; C9113; J0690; J1100; J1170; J1650; J2060; J2250; J2370; J2405; J2704; J2710; J2765; J3010; J3411; J3475; J3480; J7030; J7040; J7120; J7121

== ENCOUNTER 2017-04-14 14:09 | Inpatient (IN) | payer OTHER ==
[2017-04-14] MEDS ORDERED: APRESOLINE IV PRN (14:18)
[2017-04-14] MEDS ORDERED: MORPHINE IV PRN (14:18)
[2017-04-14] MEDS ORDERED: LACTATED RINGERS 1,000 ML IV SCH (15:00)
[2017-04-14] MEDS: ZOFRAN IV SCH ×3 (15:35→23:28)
[2017-04-14] MEDS: D5W/0.45% NACL/KCL 20 MEQ 20 MEQ/1,000 ML BAG IV SCH ×2 (15:35→23:32)
[2017-04-14] MEDS: ATIVAN IV SCH ×2 (15:36→21:16)
--- NOTE | 2017-04-14 15:49 | XRay Report ---
FINAL REPORT EXAM: XR ABD SERIES W CXR 1V HISTORY: nasuea and vomtiing TECHNIQUE: Frontal chest radiograph; AP upright and supine abdominal radiographs. PRIORS: CT of the abdomen and pelvis 02/11/2017. FINDINGS: Chest: A left upper extremity PICC is present with the tip lying in the lower SVC. The cardiomediastinal silhouette is normal. No focal consolidation. No pleural effusion. No pneumothorax. No osseous abnormality. Abdomen: Residual contrast material is seen in the colon. No pneumoperitoneum. No bowel obstruction. No organomegaly or masses. No abnormal calcifications. No acute osseous abnormality. IMPRESSION: No acute intra-abdominal or intra-thoracic abnormality. Residual contrast material in the colon.
[2017-04-14] MEDS: REGLAN IV SCH ×2 (16:16→21:16)
[2017-04-14] MEDS: DULCOLAX PR SCH (16:16)
[2017-04-14 16:27] LABS: Basophils % (Auto) 0.6 % (0.0-1.8); Eosinophils % (Auto) 0.4 % (0.0-4.3); Hematocrit 32.5 % (30.3-42.9); Hemoglobin 10.7 gm/dl (10.1-14.3); Mean Corpuscular HGB Conc 33 % (30-34); Mean Corpuscular Hemoglobin 30 pg (28-32); Mean Corpuscular Volume 90 fl (79-97); Platelet Count 207 K/mm3 (140-440); Red Blood Count 3.62 M/mm3 (3.65-5.03); Red Cell Distribution Width 16.4 % (13.2-15.2); White Blood Count 7.1 K/mm3 (4.5-11.0)
[2017-04-14 16:48] LABS: Alanine Aminotransferase 11 units/L (7-56); Albumin 3.3 g/dL (3.9-5); Alkaline Phosphatase 55 units/L (35-129); Anion Gap 19 mmol/L; BUN/Creatinine Ratio 48; Blood Urea Nitrogen 19 mg/dL (7-17); Calcium 8.6 mg/dL (8.4-10.2); Carbon Dioxide 21 mmol/L (22-30); Chloride 98.3 mmol/L (98-107); Glucose 129 mg/dL (65-100); Potassium 4.5 mmol/L (3.6-5.0); Sodium 134 mmol/L (137-145); Total Protein 6.5 g/dL (6.3-8.2)
[2017-04-14] MEDS ORDERED: KPHOS 15 MMOL in NACL 0.9% 250ML 250 ML IV ONE (21:13)
[2017-04-15] MEDS: REGLAN IV SCH ×4 (03:21→21:13)
[2017-04-15] MEDS: ZOFRAN IV SCH ×6 (03:21→23:00)
[2017-04-15] MEDS: ATIVAN IV SCH ×3 (03:22→22:42)
[2017-04-15 05:43] LABS: Hematocrit 26.7 % (30.3-42.9); Hemoglobin 8.9 gm/dl (10.1-14.3); Mean Corpuscular HGB Conc 33 % (30-34); Mean Corpuscular Hemoglobin 30 pg (28-32); Mean Corpuscular Volume 89 fl (79-97); Platelet Count 184 K/mm3 (140-440); Red Blood Count 2.99 M/mm3 (3.65-5.03); Red Cell Distribution Width 16.6 % (13.2-15.2); White Blood Count 5.3 K/mm3 (4.5-11.0)
[2017-04-15 06:02] LABS: Alanine Aminotransferase 8 units/L (7-56); Albumin 2.6 g/dL (3.9-5); Albumin/Globulin Ratio 0.9 %; Alkaline Phosphatase 40 units/L (35-129); Anion Gap 14 mmol/L; BUN/Creatinine Ratio 28; Blood Urea Nitrogen 14 mg/dL (7-17); Carbon Dioxide 23 mmol/L (22-30); Glucose 114 mg/dL (65-100); Potassium 4.2 mmol/L (3.6-5.0); Sodium 136 mmol/L (137-145); Total Protein 5.6 g/dL (6.3-8.2)
[2017-04-15] MEDS: D5W/0.45% NACL/KCL 20 MEQ 20 MEQ/1,000 ML BAG IV SCH ×2 (06:48→14:31)
[2017-04-15 07:43] LABS: Basophils % (Manual) 0 % (0.0-1.8); Blastocytes % (Manual) 0 %
[2017-04-15 07:44] LABS: Anisocytosis 1+; Elliptocytes Rare
[2017-04-15 07:45] LABS: Hypochromasia 1+
[2017-04-15 07:48] LABS: Diff Status Complete
--- NOTE | 2017-04-15 11:39 | History and Physical Report ---
History of Present Illness Date of admission: 04/14/17 14:18 History of present illness: 52 y.o. F presented to the hospital with nausea and vomiting s/p hiatal hernia repair and laparoscopic sleeve gastrectomy weeks prior, most recently she was admitted 04/05 and underwent an esophageal dilation and sleeve dilation. During her previous hospital stay she underwent a EGD dilation at her GE junction and within the sleeve as well. She tolerated the procedure with no complications. She was tolerating soft foods with no nausea or vomiting prior to discharge. Because she had low prealbumin she had malnutrition. She had a picc line inserted during hospital course and started on TPN. The TPN was continued for home as well due to severity of malnutrition. the TPN will supplement the PO intake she will be able to take in slowly. A day after discharge she started to have regurgitation and vomiting again. She could not tolerate diet at home. She denies abd. pain. She is passing flatus but no bm since discharge. She stayed hydrated at home via TPN. She denies fever and chills. She states the regurg and vomting feels the same as it did prior to the dilation on the last visit. Past History Past Medical History: hypertension, seizures (due to prev. hx of menengitis. no recent seizures ) Past Surgical History: Other (appendectomy, lap sleeve with hiatal hernia repair , repeat hiatal hernia repair, esophageal and sleeve dilation, picc line) Social history: no significant social history Family history: no significant family history Medications and Allergies Allergies Allergy/AdvReac Type Severity Reaction Status Date / Time No Known Allergies Allergy Verified 01/19/17 18:40 Home Medications Medication Instructions Recorded Confirmed Last Taken Type Magnesium Citrate 295 ml PO ONCE #1 solution 02/11/17 04/15/17 Unknown Rx Ondansetron [Zofran TAB] 4 mg PO Q8HR PRN #15 tablet 02/11/17 04/15/17 Unknown Rx Active Meds: Active Medications Bisacodyl (Dulcolax) 10 mg MO QDAY [facility] Last Admin: 04/14/17 16:16 Dose: 10 mg Enoxaparin Sodium (Lovenox) 40 mg SUB-Q QDAY MANNY Hydralazine HCl (Apresoline) 10 mg IV Q6H PRN PRN Reason: SBP > 150 Potassium Chloride/Dextrose/Sod Cl (D5w/0.45% Nacl/Kcl 20 Meq) 20 meq in 1,000 mls @ 125 mls/hr IV DIRECT [facility] Last Admin: 04/15/17 06:48 Dose: 125 mls/hr Influenza Virus Vaccine Quadrival (Fluarix Quad [id number](36 Mos+) 0.5 ml IM .ONCE ONE Stop: 04/15/17 12:01 Lorazepam (Ativan) 0.5 mg IV Q6H [facility] Last Admin: 04/15/17 03:22 Dose: 0.5 mg Metoclopramide HCl (Reglan) 10 mg IV Q6H [facility] Last Admin: 04/15/17 03:21 Dose: 10 mg Morphine Sulfate (Morphine) 2 mg IV Q4H PRN PRN Reason: Pain, Moderate (4-6) Ondansetron HCl (Zofran) 4 mg IV Q4H [facility] Last Admin: 04/15/17 06:49 Dose: 4 mg Simethicone (Mylicon) 80 mg PO Q6H PRN PRN Reason: Gas pain Review of Systems All systems: negative - Constitutional fatigue, weakness - Cardiovascular no chest pain, no orthopnea, no palpitations, no rapid/irregular heart beat, no edema, no syncope - Respiratory excessive sputum, no cough, no cough with sputum - Gastrointestinal nausea, vomiting, constipation, no abdominal pain, no diarrhea - Genitourinary Genitourinary: no dyspareunia, no dysmenorrhea - Muskuloskeletal no neck stiffness, no neck pain, no arm numbness/tingling - Integumentary no rash, no pruritis, no redness - Neurological no numbness, no tingling, no seizures, no syncope - Psychiatric no anxiety, no memory loss - Hematologic/Lymphatic no easy bruising Exam Vital Signs Temp Pulse Resp BP Pulse Ox 98.6 F 85 14 111/75 98 04/14/17 16:07 04/14/17 16:07 04/14/17 16:07 04/14/17 16:07 04/14/17 16:07 - General physical appearance Positive: well developed, well nourished - Eyes Positive: PERRL - Respiratory Positive: normal expansion, clear to percussion - Cardiovascular Rhythm: regular - Extremities Extremities: No edema - Abdomen Abdomen: Present: soft, other (obese, soft, nontender. no rebound no guarding ) - Neurologic Neurologic: alert and oriented to time, place and person, motor strength and sensation are grossly intact Results - Labs 04/15/17 05:22 04/15/17 05:22 Abnormal lab results 04/14/17 04/14/17 04/15/17 Range/Units 15:42 15:42 05:22 RBC 3.62 L 2.99 L (3.65-5.03) M/mm3 Hgb 8.9 L (10.1-14.3) gm/dl Hct 26.7 L (30.3-42.9) % RDW 16.4 H 16.6 H (13.2-15.2) % Lymph % (Auto) 9.4 L (13.4-35.0) % Power % (Auto) 12.8 H (0.0-7.3) % Lymph # 0.7 L (1.2-5.4) K/mm3 Power # 0.9 H (0.0-0.8) K/mm3 Seg Neutrophils % 76.8 H (40.0-70.0) % Seg Neuts % (Manual) 73.0 H (40.0-70.0) % Lymphocytes % (Manual) 11.0 L (13.4-35.0) % Eosinophils % (Manual) 10.0 H (0.0-4.3) % Lymphocytes # (Manual) 0.6 L (1.2-5.4) K/mm3 Eosinophils # (Manual) 0.5 H (0.0-0.4) K/mm3 Sodium 134 L (137-145) mmol/L Carbon Dioxide 21 L (22-30) mmol/L BUN 19 H (7-17) mg/dL Creatinine 0.4 L (0.7-1.2) mg/dL Glucose 129 H (65-100) mg/dL Calcium (8.4-10.2) mg/dL Phosphorus 1.90 L D (2.5-4.5) mg/dL Total Protein (6.3-8.2) g/dL Albumin 3.3 L (3.9-5) g/dL Prealbumin 0.120 L (0.200-0.400) g/L 04/15/17 Range/Units 05:22 RBC (3.65-5.03) M/mm3 Hgb (10.1-14.3) gm/dl Hct (30.3-42.9) % RDW (13.2-15.2) % Lymph % (Auto) (13.4-35.0) % Power % (Auto) (0.0-7.3) % Lymph # (1.2-5.4) K/mm3 Power # (0.0-0.8) K/mm3 Seg Neutrophils % (40.0-70.0) % Seg Neuts % (Manual) (40.0-70.0) % Lymphocytes % (Manual) (13.4-35.0) % Eosinophils % (Manual) (0.0-4.3) % Lymphocytes # (Manual) (1.2-5.4) K/mm3 Eosinophils # (Manual) (0.0-0.4) K/mm3 Sodium 136 L (137-145) mmol/L Carbon Dioxide (22-30) mmol/L BUN (7-17) mg/dL Creatinine 0.5 L (0.7-1.2) mg/dL Glucose 114 H (65-100) mg/dL Calcium 8.0 L (8.4-10.2) mg/dL Phosphorus (2.5-4.5) mg/dL Total Protein 5.6 L (6.3-8.2) g/dL Albumin 2.6 L (3.9-5) g/dL Prealbumin (0.200-0.400) g/L Diabetes panel 04/14/17 04/15/17 Range/Units 15:42 05:22 Sodium 134 L 136 L (137-145) mmol/L Potassium 4.5 4.2 (3.6-5.0) mmol/L Chloride 98.3 103.0 (98-107) mmol/L Carbon Dioxide 21 L 23 (22-30) mmol/L BUN 19 H 14 (7-17) mg/dL Creatinine 0.4 L 0.5 L (0.7-1.2) mg/dL Glucose 129 H 114 H (65-100) mg/dL Calcium 8.6 8.0 L (8.4-10.2) mg/dL AST 9 8 (5-40) units/L ALT 11 8 (7-56) units/L Alkaline Phosphatase 55 40 (35-129) units/L Total Protein 6.5 5.6 L (6.3-8.2) g/dL Albumin 3.3 L 2.6 L (3.9-5) g/dL Calcium panel 04/14/17 04/15/17 Range/Units 15:42 05:22 Calcium 8.6 8.0 L (8.4-10.2) mg/dL Phosphorus 1.90 L D 3.10 D (2.5-4.5) mg/dL Albumin 3.3 L 2.6 L (3.9-5) g/dL Pituitary panel 04/14/17 04/15/17 Range/Units 15:42 05:22 Sodium 134 L 136 L (137-145) mmol/L Potassium 4.5 4.2 (3.6-5.0) mmol/L Chloride 98.3 103.0 (98-107) mmol/L Carbon Dioxide 21 L 23 (22-30) mmol/L BUN 19 H 14 (7-17) mg/dL Creatinine 0.4 L 0.5 L (0.7-1.2) mg/dL Glucose 129 H 114 H (65-100) mg/dL Calcium 8.6 8.0 L (8.4-10.2) mg/dL Adrenal panel 04/14/17 04/15/17 Range/Units 15:42 05:22 Sodium 134 L 136 L (137-145) mmol/L Potassium 4.5 4.2 (3.6-5.0) mmol/L Chloride 98.3 103.0 (98-107) mmol/L Carbon Dioxide 21 L 23 (22-30) mmol/L BUN 19 H 14 (7-17) mg/dL Creatinine 0.4 L 0.5 L (0.7-1.2) mg/dL Glucose 129 H 114 H (65-100) mg/dL Calcium 8.6 8.0 L (8.4-10.2) mg/dL Total Bilirubin 0.30 0.30 (0.1-1.2) mg/dL AST 9 8 (5-40) units/L ALT 11 8 (7-56) units/L Alkaline Phosphatase 55 40 (35-129) units/L Total Protein 6.5 5.6 L (6.3-8.2) g/dL Albumin 3.3 L 2.6 L (3.9-5) g/dL Assessment and Plan 52 y.o. F presented to the hospital with nausea and vomiting s/p hiatal hernia repair and laparoscopic sleeve gastrectomy, esophagel and sleeve dilation: - f/u UGI series- egd tomorrow, possible dilation - nausea control: ativan, zofran, reglan, phenergren - constipation : biscodyl, fleet enema. encourage ambulation -Nutrition: TPN- nutrition consulted. npo for now -GI and dvt prophylaxis
--- NOTE | 2017-04-15 11:49 | Fluoroscopy Report ---
UPPER GI : 04/15/17 09:00:00 CLINICAL: Persistent nausea and vomiting. Status post gastric bypass surgery December 30. FINDINGS: A director industrial museum view of the abdomen is remarkable for retained barium in a nondistended colon. No distended small bowel no gastric distention. No pneumoperitoneum. A single contrast barium study was performed with the patient standing. A normal swallowing mechanism was observed. Normal upper esophageal peristalsis but ineffective peristalsis of the distal esophagus. Although barium spilled promptly into the gastric pouch, a standing column of barium persisted in the distal esophagus for the entire exam. Tertiary contractions of the esophagus were initially observed but toward the end of the study, no contraction of the distal esophagus was observed. Full column esophageal reflux was also observed. In addition, an outpouching of barium at the left lateral aspect of the distal esophagus at the EG junction is suspicious for a moderately large ulcer. The gastric pouch has a normal configuration with normal mucosa that is unchanged since the prior study. The barium emptied into a normal duodenum. IMPRESSION: 1. Suspect a moderately large ulcer of the distal esophagus at the EG junction. 2. Esophageal dysmotility and esophageal reflux. 3. Most of the esophageal mucosa is normal with no signs of esophagitis. 4. A normal gastric pouch with no obstruction and no leak.
[2017-04-15] MEDS ORDERED: Fluarix Quad 2017-2018(36 MOS+ IM ONE (12:00)
[2017-04-15] MEDS: LOVENOX SUB-Q SCH (12:19)
[2017-04-15] MEDS ORDERED: FLEET PR ONE (13:00)
[2017-04-15] MEDS ORDERED: PHENERGAN PR PRN (14:30)
[2017-04-15] MEDS ORDERED: TPN ADULT 2,016 ML IV SCH (20:00)
[2017-04-16] MEDS: ZOFRAN IV SCH ×5 (04:48→21:28)
[2017-04-16] MEDS: ATIVAN IV SCH ×3 (04:49→16:44)
[2017-04-16] MEDS: REGLAN IV SCH ×4 (04:51→21:28)
[2017-04-16 05:41] LABS: Anion Gap 14 mmol/L; BUN/Creatinine Ratio 16; Blood Urea Nitrogen 8 mg/dL (7-17); Calcium 8.3 mg/dL (8.4-10.2); Carbon Dioxide 25 mmol/L (22-30); Chloride 98.9 mmol/L (98-107); Glucose 110 mg/dL (65-100); Potassium 4.2 mmol/L (3.6-5.0); Sodium 134 mmol/L (137-145)
[2017-04-16 05:44] LABS: Triglycerides 107 mg/dL (2-149)
[2017-04-16] MEDS: MYLICON PO PRN ×2 (07:49→21:27)
--- NOTE | 2017-04-16 09:24 | Progress Note ---
Assessment and Plan 52 y.o. F presented to the hospital with nausea and vomiting s/p hiatal hernia repair and laparoscopic sleeve gastrectomy, esophagel and sleeve dilation: - f/u UGI series- egd today possible dilation - nausea control: ativan, zofran, reglan, phenergren - constipation : biscodyl, fleet enema. encourage ambulation -Nutrition: TPN- nutrition consulted. npo for now -GI and dvt prophylaxis Subjective Narrative: Pt continues to have spitting of frothing fluid. No vomiting. She has been npo since admission. She had an enema last night but no bm. +flatus. +ambulation Objective Vital Signs - 12hr 04/15/17 04/16/17 04/16/17 22:00 00:35 04:44 Temperature 98.8 F 99.3 F Pulse Rate 74 84 Respiratory 18 18 18 Rate Blood Pressure 87/52 116/69 O2 Sat by Pulse 97 97 Oximetry - General physical appearance well developed, well nourished, no distress - Respiratory normal expansion - Abdomen soft, not tender, bowel sounds normal, not guarding, not rigid - Integumentary no rash, no growths - Neurologic normal coordination, normal sensation - Musculoskeletal normal posture - Psychiatric oriented to time, oriented to person, oriented to place, speech is normal - Labs 04/15/17 05:22 04/16/17 05:10 Diabetes panel 04/16/17 Range/Units 05:10 Sodium 134 L (137-145) mmol/L Potassium 4.2 (3.6-5.0) mmol/L Chloride 98.9 (98-107) mmol/L Carbon Dioxide 25 (22-30) mmol/L BUN 8 (7-17) mg/dL Creatinine 0.5 L (0.7-1.2) mg/dL Glucose 110 H (65-100) mg/dL Calcium 8.3 L (8.4-10.2) mg/dL Triglycerides 107 (2-149) mg/dL Calcium panel 04/16/17 Range/Units 05:10 Calcium 8.3 L (8.4-10.2) mg/dL Phosphorus 3.60 (2.5-4.5) mg/dL Pituitary panel 04/16/17 Range/Units 05:10 Sodium 134 L (137-145) mmol/L Potassium 4.2 (3.6-5.0) mmol/L Chloride 98.9 (98-107) mmol/L Carbon Dioxide 25 (22-30) mmol/L BUN 8 (7-17) mg/dL Creatinine 0.5 L (0.7-1.2) mg/dL Glucose 110 H (65-100) mg/dL Calcium 8.3 L (8.4-10.2) mg/dL Adrenal panel 04/16/17 Range/Units 05:10 Sodium 134 L (137-145) mmol/L Potassium 4.2 (3.6-5.0) mmol/L Chloride 98.9 (98-107) mmol/L Carbon Dioxide 25 (22-30) mmol/L BUN 8 (7-17) mg/dL Creatinine 0.5 L (0.7-1.2) mg/dL Glucose 110 H (65-100) mg/dL Calcium 8.3 L (8.4-10.2) mg/dL
[2017-04-16] MEDS: LOVENOX SUB-Q SCH (10:00)
[2017-04-16] MEDS ORDERED: FLEET MINERAL OIL PR ONE (11:00)
--- NOTE | 2017-04-16 15:13 | Anesthesia Consultation ---
Anesthesia Consult and Med Hx Date of service: 04/16/17 - Airway Anesthetic Teeth Evaluation: Good ROM Head & Neck: Adequate Mental/Hyoid Distance: Adequate Mallampati Class: Class I Intubation Access Assessment: Good - Pulmonary Exam CTA: Yes - Cardiac Exam Cardiac Exam: RRR - Pre-Operative Health Status ASA Pre-Surgery Classification: ASA3 Proposed Anesthetic Plan: MAC - Pulmonary Hx Smoking: No Hx Asthma: No COPD: No Hx Pneumonia: No Hx Sleep Apnea: Yes (uses cpap) - Cardiovascular System Hx Hypertension: Yes ("borderline" no meds) Hx Pacemaker: No Hx Internal Defibrillator: No Hx Heart Murmur: Yes - Central Nervous System Hx Seizures: Yes (1997 due to menningitis) Hx Psychiatric Problems: No - Gastrointestinal Hx Gastroesophageal Reflux Disease: Yes (nausea and vomiting, dysphagea) - Endocrine Hx End Stage Renal Disease: No - Other Systems Hx Alcohol Use: Yes (occas) Hx Cancer: No Hx Obesity: Yes
--- NOTE | 2017-04-16 15:13 | Anesthesia Day of Surgery ---
Anesthesia Day of Surgery - Day of Surgery Patient Examined: Yes Patient H&P Reviewed: Yes Patient is NPO: Yes
[2017-04-16] MEDS ORDERED: DIPRIVAN 10 MG/ML IV ONE ×2 (15:17)
[2017-04-16] MEDS ORDERED: NACL 0.9% 1000 ML 1,000 ML IV SCH (16:00)
[2017-04-16] MEDS ORDERED: TPN ADULT 2,016 ML IV SCH (20:00)
[2017-04-16] MEDS ORDERED: INTRALIPID 20% 250 ML IV SCH (20:00)
[2017-04-17] MEDS: ZOFRAN IV SCH ×5 (03:19→23:57)
[2017-04-17] MEDS: REGLAN IV SCH ×4 (03:19→23:04)
[2017-04-17] MEDS: ATIVAN IV SCH ×4 (04:35→23:01)
[2017-04-17 05:16] LABS: Hematocrit 28.1 % (30.3-42.9); Hemoglobin 9.4 gm/dl (10.1-14.3); Mean Corpuscular HGB Conc 33 % (30-34); Mean Corpuscular Hemoglobin 30 pg (28-32); Mean Corpuscular Volume 89 fl (79-97); Platelet Count 209 K/mm3 (140-440); Red Blood Count 3.14 M/mm3 (3.65-5.03); Red Cell Distribution Width 16.3 % (13.2-15.2); White Blood Count 5.4 K/mm3 (4.5-11.0)
[2017-04-17 05:36] LABS: Anion Gap 15 mmol/L; BUN/Creatinine Ratio 30; Blood Urea Nitrogen 12 mg/dL (7-17); Calcium 8.2 mg/dL (8.4-10.2); Carbon Dioxide 24 mmol/L (22-30); Chloride 99.7 mmol/L (98-107); Glucose 102 mg/dL (65-100); Potassium 4.1 mmol/L (3.6-5.0); Sodium 135 mmol/L (137-145)
[2017-04-17 06:21] LABS: Anisocytosis 1+; Basophils % (Manual) 0 % (0.0-1.8); Blastocytes % (Manual) 0 %; Diff Status Complete; Platelet Estimate Consistent w Auto
[2017-04-17 09:24] LABS: INR 0.98 (0.87-1.13)
[2017-04-17] MEDS: DULCOLAX PR SCH (09:24)
--- NOTE | 2017-04-17 11:30 | Progress Note ---
Assessment and Plan 52 y.o. F presented to the hospital with nausea and vomiting s/p hiatal hernia repair and laparoscopic sleeve gastrectomy, esophagel and sleeve dilation: s/p EGD with dilation -Plan for diagnostic laparoscopy today - nausea control: ativan, zofran, reglan, phenergren - constipation : biscodyl, fleet enema. encourage ambulation -Nutrition: TPN- nutrition consulted. npo for now -GI and dvt prophylaxis Subjective Narrative: Pt is s/p EGD with dilation. She feels a little better She continues to spitting of copious amounts of spit. She denies any abdominal pain or fever/ chills. Denies any vomiting. Nausea is minimal. She is ambulating well. Objective Vital Signs - 12hr 04/17/17 04/17/17 04:46 08:36 Temperature 98.7 F 99.0 F Pulse Rate 92 H 80 Respiratory 16 18 Rate Blood Pressure 103/59 Blood Pressure 99/56 [Right] O2 Sat by Pulse 97 98 Oximetry - General physical appearance well developed, well nourished, no distress - Respiratory normal expansion - Abdomen soft, not tender, bowel sounds normal, not rebound, not guarding - Integumentary no rash - Neurologic normal coordination, normal sensation - Musculoskeletal normal posture - Psychiatric oriented to time, oriented to person, oriented to place, speech is normal - Labs 04/17/17 Unknown 04/17/17 Unknown Diabetes panel 04/17/17 Range/Units Unknown Sodium 135 L (137-145) mmol/L Potassium 4.1 (3.6-5.0) mmol/L Chloride 99.7 (98-107) mmol/L Carbon Dioxide 24 (22-30) mmol/L BUN 12 (7-17) mg/dL Creatinine 0.4 L (0.7-1.2) mg/dL Glucose 102 H (65-100) mg/dL Calcium 8.2 L (8.4-10.2) mg/dL Calcium panel 04/17/17 Range/Units Unknown Calcium 8.2 L (8.4-10.2) mg/dL Phosphorus 4.30 (2.5-4.5) mg/dL Pituitary panel 04/17/17 Range/Units Unknown Sodium 135 L (137-145) mmol/L Potassium 4.1 (3.6-5.0) mmol/L Chloride 99.7 (98-107) mmol/L Carbon Dioxide 24 (22-30) mmol/L BUN 12 (7-17) mg/dL Creatinine 0.4 L (0.7-1.2) mg/dL Glucose 102 H (65-100) mg/dL Calcium 8.2 L (8.4-10.2) mg/dL Adrenal panel 04/17/17 Range/Units Unknown Sodium 135 L (137-145) mmol/L Potassium 4.1 (3.6-5.0) mmol/L Chloride 99.7 (98-107) mmol/L Carbon Dioxide 24 (22-30) mmol/L BUN 12 (7-17) mg/dL Creatinine 0.4 L (0.7-1.2) mg/dL Glucose 102 H (65-100) mg/dL Calcium 8.2 L (8.4-10.2) mg/dL
[2017-04-17] MEDS: LOVENOX SUB-Q SCH (12:17)
[2017-04-17] MEDS ORDERED: XYLOCAINE 1% 20 mL ONE (19:45)
[2017-04-17] MEDS ORDERED: MARCAINE 0.5% 30 ML INFILTRATI ONE (19:45)
[2017-04-17] MEDS ORDERED: DECADRON ONE (19:49)
[2017-04-17] MEDS ORDERED: SUBLIMAZE ONE (19:49)
[2017-04-17] MEDS ORDERED: ROBINUL ONE ×2 (19:49)
[2017-04-17] MEDS ORDERED: NEOSTIGMINE ONE (19:49)
[2017-04-17] MEDS ORDERED: ZEMURON IV ONE (19:49)
[2017-04-17] MEDS ORDERED: ZOFRAN ONE (19:49)
[2017-04-17] MEDS ORDERED: XYLOCAINE MPF 2% ONE (19:49)
[2017-04-17] MEDS ORDERED: DIPRIVAN 10 MG/ML IV ONE (19:49)
[2017-04-17] MEDS ORDERED: TPN ADULT 2,016 ML IV SCH (20:00)
[2017-04-17] MEDS ORDERED: LACTATED RINGERS 1,000 ML ONE ×2 (20:02→21:57)
[2017-04-17] MEDS ORDERED: NEO SYNEPHRINE/NS Syringe(OR USE) IV ONE ×2 (20:16→22:13)
[2017-04-17] MEDS ORDERED: QUELICIN ONE (20:19)
[2017-04-17] MEDS ORDERED: ePHEDrine SULFATE ONE (20:20)
[2017-04-17] MEDS ORDERED: MARCAINE 0.5% INFILTRATI ONE (20:31)
[2017-04-17] MEDS ORDERED: XYLOCAINE 1% 20 mL INFILTRATI ONE (20:31)
[2017-04-17] MEDS ORDERED: ANCEF ONE ×2 (20:34)
[2017-04-17] MEDS ORDERED: FLAGYL 500 MG/100 ML 500 MG/100 ML BAG IV ONE (20:35)
[2017-04-17] MEDS ORDERED: DILAUDID ONE (20:47)
[2017-04-17] MEDS ORDERED: NACL 0.9% 100 ML ONE (21:16)
[2017-04-17] MEDS ORDERED: NEO SYNEPHRINE ONE (21:16)
[2017-04-17] MEDS ORDERED: DILAUDID IV PRN (22:14)
[2017-04-17] MEDS ORDERED: MORPHINE IV PRN (22:37)
--- NOTE | 2017-04-17 22:37 | Post Anesthesia Evaluation ---
- Post Anesthesia Evaluation Patient Participated: Yes Airway Patent: Yes Stable Respiratory Function: Yes Temp > 96.8F: Yes Pain Manageable: Yes Adequeate Hydration: Yes Anesthesia Complications: No
[2017-04-17] MEDS ORDERED: NACL 0.9% 1000 ML 1,000 ML IV SCH (23:00)
[2017-04-18] MEDS: ZOFRAN IV SCH ×6 (03:14→23:09)
[2017-04-18] MEDS: ATIVAN IV SCH ×5 (03:15→23:10)
[2017-04-18] MEDS: REGLAN IV SCH ×4 (03:15→22:29)
[2017-04-18 07:09] LABS: Basophils % (Auto) 0.3 % (0.0-1.8); Eosinophils % (Auto) 1.2 % (0.0-4.3); Hematocrit 26.3 % (30.3-42.9); Hemoglobin 8.5 gm/dl (10.1-14.3); Mean Corpuscular HGB Conc 32 % (30-34); Mean Corpuscular Hemoglobin 29 pg (28-32); Mean Corpuscular Volume 89 fl (79-97); Platelet Count 209 K/mm3 (140-440); Red Blood Count 2.95 M/mm3 (3.65-5.03); Red Cell Distribution Width 16.1 % (13.2-15.2); White Blood Count 7.2 K/mm3 (4.5-11.0)
[2017-04-18 07:23] LABS: Anion Gap 14 mmol/L; BUN/Creatinine Ratio 53; Blood Urea Nitrogen 16 mg/dL (7-17); Calcium 7.4 mg/dL (8.4-10.2); Carbon Dioxide 23 mmol/L (22-30); Chloride 101.2 mmol/L (98-107); Glucose 143 mg/dL (65-100); Potassium 4.2 mmol/L (3.6-5.0); Sodium 134 mmol/L (137-145)
--- NOTE | 2017-04-18 10:14 | Progress Note ---
Assessment and Plan 52 y.o. F presented to the hospital with nausea and vomiting s/p hiatal hernia repair and laparoscopic sleeve gastrectomy, esophagel and sleeve dilation: s/p EGD with dilation. POD #1 diagnostic laparoscopy - nausea control: ativan, zofran, reglan, phenergren suppository - pain control with Toradol - constipation : biscodyl, fleet enema. encourage ambulation -Nutrition: Maintain TPN- nutrition consulted. Advance to clear liquids orally - repeat contrast CT prior to discharge -GI and dvt prophylaxis Subjective Patient Reports: Positive: still having pain, no bowel movement, vomiting Narrative: No acute events overnight. Patient states that she is still having significant pain around surgical incision site and that she is vomiting copious amounts of mucous like material. Patient states that she has not attempted to drink fluids as her pain regi her. Objective Vital Signs - 12hr 04/17/17 04/17/17 04/17/17 22:20 22:25 22:30 Temperature 97.5 F L Pulse Rate 98 H 76 96 H Respiratory 20 17 17 Rate Blood Pressure 87/48 127/74 101/55 O2 Sat by Pulse 100 100 100 Oximetry 04/17/17 04/17/17 04/17/17 22:35 22:45 23:00 Temperature Pulse Rate 97 H 93 H 96 H Respiratory 18 18 17 Rate Blood Pressure 96/54 105/62 104/55 O2 Sat by Pulse 100 100 100 Oximetry 04/17/17 04/17/17 04/17/17 23:15 23:30 23:52 Temperature 97.3 F L Pulse Rate 96 H 101 H Respiratory 16 20 18 Rate Blood Pressure 101/54 101/54 108/66 O2 Sat by Pulse 100 100 Oximetry 04/18/17 04/18/17 04/18/17 00:20 01:00 03:22 Temperature 97.7 F Pulse Rate 101 H Respiratory 18 18 18 Rate Blood Pressure O2 Sat by Pulse Oximetry 04/18/17 04/18/17 05:15 07:56 Temperature 98.5 F 98.9 F Pulse Rate 99 H Respiratory 16 18 Rate Blood Pressure 101/61 102/56 O2 Sat by Pulse 98 Oximetry - General physical appearance moderate distress, moderate pain - Eyes PERRL, normal occular movement - Respiratory normal expansion, normal respiratory effort, clear to auscultation - Abdomen tender, bowel sounds hypoactive, guarding - Labs 04/18/17 06:55 04/18/17 06:55 Diabetes panel 04/18/17 Range/Units 06:55 Sodium 134 L (137-145) mmol/L Potassium 4.2 (3.6-5.0) mmol/L Chloride 101.2 (98-107) mmol/L Carbon Dioxide 23 (22-30) mmol/L BUN 16 (7-17) mg/dL Creatinine 0.3 L (0.7-1.2) mg/dL Glucose 143 H (65-100) mg/dL Calcium 7.4 L (8.4-10.2) mg/dL Calcium panel 04/18/17 Range/Units 06:55 Calcium 7.4 L (8.4-10.2) mg/dL Phosphorus 3.40 D (2.5-4.5) mg/dL Pituitary panel 04/18/17 Range/Units 06:55 Sodium 134 L (137-145) mmol/L Potassium 4.2 (3.6-5.0) mmol/L Chloride 101.2 (98-107) mmol/L Carbon Dioxide 23 (22-30) mmol/L BUN 16 (7-17) mg/dL Creatinine 0.3 L (0.7-1.2) mg/dL Glucose 143 H (65-100) mg/dL Calcium 7.4 L (8.4-10.2) mg/dL Adrenal panel 04/18/17 Range/Units 06:55 Sodium 134 L (137-145) mmol/L Potassium 4.2 (3.6-5.0) mmol/L Chloride 101.2 (98-107) mmol/L Carbon Dioxide 23 (22-30) mmol/L BUN 16 (7-17) mg/dL Creatinine 0.3 L (0.7-1.2) mg/dL Glucose 143 H (65-100) mg/dL Calcium 7.4 L (8.4-10.2) mg/dL
[2017-04-18] MEDS: TORADOL IV PRN (14:41)
[2017-04-18] MEDS: DULCOLAX PR SCH (14:46)
[2017-04-18] MEDS: LOVENOX SUB-Q SCH (14:46)
[2017-04-18] MEDS ORDERED: PROTONIX IV SCH (18:00)
[2017-04-18] MEDS ORDERED: TPN ADULT 2,016 ML IV SCH (20:00)
[2017-04-18] MEDS ORDERED: INTRALIPID 20% 250 ML IV SCH (20:00)
[2017-04-18] MEDS ORDERED: TRANSDERM-SCOP TD SCH (20:00)
[2017-04-18] MEDS: PHENERGAN PR SCH (22:28)
[2017-04-18] MEDS: PEPCID IV SCH (23:11)
[2017-04-19 04:00] LABS: Basophils % (Auto) 0.4 % (0.0-1.8); Hematocrit 26.8 % (30.3-42.9); Mean Corpuscular HGB Conc 34 % (30-34); Mean Corpuscular Hemoglobin 30 pg (28-32); Mean Corpuscular Volume 90 fl (79-97); Platelet Count 229 K/mm3 (140-440); Red Blood Count 2.99 M/mm3 (3.65-5.03); Red Cell Distribution Width 16.9 % (13.2-15.2); White Blood Count 6.9 K/mm3 (4.5-11.0)
[2017-04-19] MEDS: ZOFRAN IV SCH ×7 (04:07→21:01)
[2017-04-19] MEDS: ATIVAN IV SCH ×4 (04:07→21:11)
[2017-04-19] MEDS: REGLAN IV SCH ×4 (04:10→22:34)
[2017-04-19] MEDS: PHENERGAN PR SCH ×4 (04:13→17:14)
[2017-04-19 04:22] LABS: Anion Gap 15 mmol/L; BUN/Creatinine Ratio 43; Blood Urea Nitrogen 13 mg/dL (7-17); Calcium 7.8 mg/dL (8.4-10.2); Carbon Dioxide 23 mmol/L (22-30); Chloride 103.1 mmol/L (98-107); Glucose 124 mg/dL (65-100); Potassium 4.6 mmol/L (3.6-5.0); Sodium 136 mmol/L (137-145)
--- NOTE | 2017-04-19 06:36 | Progress Note ---
Assessment and Plan 52 y.o. F presented to the hospital with nausea and vomiting s/p hiatal hernia repair and laparoscopic sleeve gastrectomy, esophagel and sleeve dilation: s/p EGD with dilation. POD #2 diagnostic laparoscopy - nausea control: ativan, zofran, reglan, phenergren suppository - pain control with Toradol - constipation : biscodyl, fleet enema. encourage ambulation - Nutrition: Maintain TPN- nutrition consulted. Advance to clear liquids orally - possible repeat upper gi series in the next 1-2 days. Will discuss possible steroid use -GI and dvt prophylaxis Subjective Patient Reports: Positive: no new complaints Narrative: No acute events overnight. Pt says she remains nauseous with continued sputum production. Reports 3-4 episodes of vomiting white, thick, frothy liquid. Reports minimal amount of blood in 2 episodes of vomit. Unable to keep any liquids down. 2 loose BM yesterday. Abdominal pain is improving. Objective Vital Signs - 12hr 04/18/17 04/19/17 22:15 00:54 Temperature 99.2 F 98.6 F Pulse Rate 120 H 100 H Respiratory 20 20 Rate Blood Pressure 110/68 110/73 O2 Sat by Pulse 96 98 Oximetry - General physical appearance well developed, well nourished, no distress - Eyes normal occular movement - ENT no hearing loss - Respiratory normal expansion, normal respiratory effort, clear to auscultation - Abdomen soft, bowel sounds normal, other (incision sites are clean and dry) - Integumentary no rash - Neurologic normal coordination, normal sensation - Musculoskeletal normal posture - Psychiatric oriented to time, oriented to person, oriented to place, speech is normal, memory intact - Labs 04/19/17 03:11 04/19/17 03:11 Diabetes panel 04/18/17 04/19/17 Range/Units 06:55 03:11 Sodium 134 L 136 L (137-145) mmol/L Potassium 4.2 4.6 (3.6-5.0) mmol/L Chloride 101.2 103.1 (98-107) mmol/L Carbon Dioxide 23 23 (22-30) mmol/L BUN 16 13 (7-17) mg/dL Creatinine 0.3 L 0.3 L (0.7-1.2) mg/dL Glucose 143 H 124 H (65-100) mg/dL Calcium 7.4 L 7.8 L (8.4-10.2) mg/dL Calcium panel 04/18/17 04/19/17 Range/Units 06:55 03:11 Calcium 7.4 L 7.8 L (8.4-10.2) mg/dL Phosphorus 3.40 D 2.60 D (2.5-4.5) mg/dL Pituitary panel 04/18/17 04/19/17 Range/Units 06:55 03:11 Sodium 134 L 136 L (137-145) mmol/L Potassium 4.2 4.6 (3.6-5.0) mmol/L Chloride 101.2 103.1 (98-107) mmol/L Carbon Dioxide 23 23 (22-30) mmol/L BUN 16 13 (7-17) mg/dL Creatinine 0.3 L 0.3 L (0.7-1.2) mg/dL Glucose 143 H 124 H (65-100) mg/dL Calcium 7.4 L 7.8 L (8.4-10.2) mg/dL Adrenal panel 04/18/17 04/19/17 Range/Units 06:55 03:11 Sodium 134 L 136 L (137-145) mmol/L Potassium 4.2 4.6 (3.6-5.0) mmol/L Chloride 101.2 103.1 (98-107) mmol/L Carbon Dioxide 23 23 (22-30) mmol/L BUN 16 13 (7-17) mg/dL Creatinine 0.3 L 0.3 L (0.7-1.2) mg/dL Glucose 143 H 124 H (65-100) mg/dL Calcium 7.4 L 7.8 L (8.4-10.2) mg/dL
[2017-04-19] MEDS: LOVENOX SUB-Q SCH (09:02)
[2017-04-19] MEDS: PEPCID IV SCH ×2 (09:03→21:01)
[2017-04-19] MEDS: TORADOL IV PRN (09:04)
[2017-04-19] MEDS: DULCOLAX PR SCH (12:08)
[2017-04-19] MEDS ORDERED: DECADRON IV ONE (13:00)
[2017-04-19] MEDS ORDERED: TPN ADULT 2,016 ML IV SCH (20:00)
[2017-04-20] MEDS: PHENERGAN PR SCH
[2017-04-20] MEDS: ZOFRAN IV SCH ×6 (02:06→21:10)
[2017-04-20] MEDS: ATIVAN IV SCH ×3 (02:06→21:10)
[2017-04-20] MEDS: REGLAN IV SCH ×4 (02:06→21:10)
[2017-04-20 03:07] LABS: Basophils % (Auto) 0.4 % (0.0-1.8); Eosinophils % (Auto) 1.3 % (0.0-4.3); Hematocrit 24.1 % (30.3-42.9); Mean Corpuscular HGB Conc 33 % (30-34); Mean Corpuscular Hemoglobin 30 pg (28-32); Mean Corpuscular Volume 90 fl (79-97); Platelet Count 252 K/mm3 (140-440); Red Blood Count 2.68 M/mm3 (3.65-5.03); Red Cell Distribution Width 17.2 % (13.2-15.2); White Blood Count 6.6 K/mm3 (4.5-11.0)
[2017-04-20 03:22] LABS: Anion Gap 14 mmol/L; BUN/Creatinine Ratio 33; Blood Urea Nitrogen 13 mg/dL (7-17); Calcium 8.2 mg/dL (8.4-10.2); Carbon Dioxide 24 mmol/L (22-30); Chloride 101.8 mmol/L (98-107); Glucose 117 mg/dL (65-100); Potassium 4.3 mmol/L (3.6-5.0); Sodium 135 mmol/L (137-145)
--- NOTE | 2017-04-20 07:02 | Progress Note ---
Assessment and Plan 52 y.o. F presented to the hospital with nausea and vomiting s/p hiatal hernia repair and laparoscopic sleeve gastrectomy, esophagel and sleeve dilation: s/p EGD with dilation. POD #3 diagnostic laparoscopy - nausea control: ativan, zofran, reglan, phenergren suppository - pain control with Toradol - constipation : biscodyl, fleet enema. encourage ambulation - Nutrition: Maintain TPN- nutrition consulted. Advance to clear liquids orally. - UGI series- improvement compared to prior - Dose of steroids given x 1 yesterday - N/V improving. Tolerating clear liquids - GI and dvt prophylaxis Afternoon exam: will transition to PO meds. If pt tolerates PO meds and continues to tolerate clears she can be for dc tomorrow. Case management made aware of dc plan and TPN ready for home. Subjective Patient Reports: Positive: no new complaints Narrative: No acute events overnight. Pt reports an overall improvement in her symptoms. Tolerating clear liquids. Nausea has improved with no episodes of vomiting yesterday. Pt reports one loose BM yesterday. Pt has been ambulating and using incentive spirometer. Pt denies any pain. Objective Vital Signs - 12hr 04/19/17 04/19/17 04/19/17 20:08 23:00 23:30 Temperature 98.5 F 98.4 F Pulse Rate 81 88 Respiratory 16 18 Rate Blood Pressure 104/62 98/55 O2 Sat by Pulse 94 Oximetry 04/20/17 04/20/17 04:57 05:21 Temperature 98.7 F Pulse Rate 81 Respiratory 16 Rate Blood Pressure 95/55 O2 Sat by Pulse Oximetry - General physical appearance well developed, well nourished, no distress - Eyes normal occular movement - ENT no hearing loss - Respiratory normal expansion, normal respiratory effort, clear to auscultation - Abdomen soft, bowel sounds normal, other (Incisional wounds clean and dry) - Integumentary no rash - Neurologic normal sensation - Musculoskeletal normal posture - Psychiatric oriented to time, oriented to person, oriented to place, speech is normal, memory intact - Labs 04/20/17 02:47 04/20/17 02:47 Diabetes panel 04/20/17 Range/Units 02:47 Sodium 135 L (137-145) mmol/L Potassium 4.3 (3.6-5.0) mmol/L Chloride 101.8 (98-107) mmol/L Carbon Dioxide 24 (22-30) mmol/L BUN 13 (7-17) mg/dL Creatinine 0.4 L (0.7-1.2) mg/dL Glucose 117 H (65-100) mg/dL Calcium 8.2 L (8.4-10.2) mg/dL Calcium panel 04/20/17 Range/Units 02:47 Calcium 8.2 L (8.4-10.2) mg/dL Phosphorus 3.00 (2.5-4.5) mg/dL Pituitary panel 04/20/17 Range/Units 02:47 Sodium 135 L (137-145) mmol/L Potassium 4.3 (3.6-5.0) mmol/L Chloride 101.8 (98-107) mmol/L Carbon Dioxide 24 (22-30) mmol/L BUN 13 (7-17) mg/dL Creatinine 0.4 L (0.7-1.2) mg/dL Glucose 117 H (65-100) mg/dL Calcium 8.2 L (8.4-10.2) mg/dL Adrenal panel 04/20/17 Range/Units 02:47 Sodium 135 L (137-145) mmol/L Potassium 4.3 (3.6-5.0) mmol/L Chloride 101.8 (98-107) mmol/L Carbon Dioxide 24 (22-30) mmol/L BUN 13 (7-17) mg/dL Creatinine 0.4 L (0.7-1.2) mg/dL Glucose 117 H (65-100) mg/dL Calcium 8.2 L (8.4-10.2) mg/dL
[2017-04-20] MEDS: LOVENOX SUB-Q SCH (10:06)
[2017-04-20] MEDS: PEPCID IV SCH ×2 (10:11→21:10)
[2017-04-20] MEDS: DULCOLAX PR SCH (10:22)
--- NOTE | 2017-04-20 12:10 | Fluoroscopy Report ---
FLUOROSCOPY UPPER GI WITHOUT AIR WITH KUB INDICATION: Previous hiatal hernia, now status post hernia takedown. Status post EGD with dilatation and diagnostic laparoscopy, postop day 4. History of sleeve gastrectomy. COMPARISON: 04/15/2017, 04/05/2017 and 03/08/2017 upper GI exams. FINDINGS: Upper GI performed following diluted Gastrografin administration. Patient swallowed with minimal difficulty. Initial lathe mechanic radiograph demonstrates residual colonic contrast, most along the ascending colon. Postsurgical changes in the gastric region again noted. A new central catheter also now partially imaged. Subsequent Gastrografin swallow demonstrates mild contrast stasis/accumulation and irregularity along the distal esophagus, though some now empties into the postsurgical stomach after 2 or 3 small swallows. Subsequent larger swallows again demonstrate small standing column of contrast along the distal esophagus with a stable E-shaped irregularity/defects along the left lateral aspect at or just above the GE junction, similar to the prior exams and again not entirely excluded postsurgical/extrinsic from the left in this patient with small hiatal hernia as on 02/11/[address] images or ulceration, amongst others. However, distal esophageal emptying was better this time following 2-3 dry swallows. CONCLUSION: 1. Mild stasis of distal esophageal contrast column again noted as also distal esophageal irregularity/filling defect(s)/impression(s)/ulceration on the left, as detailed above. However, emptying into the stomach was better facilitated now with few dry swallows. Please also correlate clinically and with endoscopic/operative findings. 2. Other findings, including new central catheter and colonic contrast. Thank you for the opportunity to participate in this patient's care.
[2017-04-20] MEDS ORDERED: TPN ADULT 2,016 ML IV SCH (20:00)
[2017-04-20] MEDS ORDERED: INTRALIPID 20% 250 ML IV SCH (20:00)
[2017-04-20] MEDS ORDERED: TYLENOL PO PRN (23:24)
--- NOTE | 2017-04-21 01:50 | Discharge Summary ---
<JOSE A GLASS - Last Filed: 04/21/17 01:51> Providers - Providers Date of Admission: 04/14/17 14:18 Attending physician: YOLIS OWEN 04/14/17 14:42 Consult to Dietitian/Nutrition [CONS] Routine Physician Instructions: Reason For Exam: Reason for Consult: Write/Manage TPN/PPN Primary care physician: AIR QUAL[employer] CONSULTANT Hospitalization Reason for admission: nausea and vomting Condition: Good Pertinent studies: Upper GI series x 2 Procedures: EGD with dilation and diagnostic laparoscopy with reduction of hiatal hernia Hospital course: 52 y.o. F admitted to the hospital with nausea and vomiting. She previously had a hiatal hernia repair and laparoscopic sleeve gastrectomy weeks prior. During her hospital stay she underwent a EGD dilation at her GE junction. The following day she had a diag laparoscopy with reduction of hiatal hernia. She tolerated the procedure well. Post op she continued to have nausea and vomiting until she was given a dose of steroids x 1. The following day she was able to tolerated liquids without vomiting or spitting. A repeat upper GI series prior to discharge showed improvement. Prior to discharge she was tolerating liquids and using PO medications. She will be discharged with her picc she presented with as well. She will continue tpn at home. TPN will supplement the PO intake she will be able to take in slowly Disposition: DC-01 TO HOME OR SELFCARE Core Measure Documentation - Palliative Care Palliative Care/ Comfort Measures: Not Applicable - Core Measures Any of the following diagnoses?: none Exam - Physical Exam Narrative exam: Cardio RRR LUngs : equal rise and fall of chest Abd: soft tender at umbilical incision. Incisions/dressings are cdi. no rebound no guarding - Constitutional Vitals: Temp Pulse Resp BP Pulse Ox 99.4 F 80 20 107/70 99 04/20/17 20:08 04/20/17 20:08 04/20/17 20:08 04/20/17 20:08 04/20/17 20:08 Plan Activity: advance as tolerated Diet: clear liquids (sugar free clear. Slowy advance to full liquids in a week ) Wound: keep clean and dry, other (Change umbilical dressing daily. ) Additional Instructions: Follow up with Dr. Owen in 1 week. Continue TPN for now. Follow up with: PRIMARY CARE, [Primary Care Provider] - 7 Days <Francine Booth - Last Filed: 04/21/17 12:40> Providers - Providers Date of Admission: 04/14/17 14:18 Date of discharge: 04/21/17 Attending physician: YOLIS OWEN 04/14/17 14:42 Consult to Dietitian/Nutrition [CONS] Routine Physician Instructions: Reason For Exam: Reason for Consult: Write/Manage TPN/PPN Primary care physician: [employer] QUAL[employer] CONSULTANT Exam - Constitutional Vitals: Temp Pulse Resp BP Pulse Ox 98.7 F 74 18 91/46 100 04/21/17 12:00 04/21/17 12:00 04/21/17 12:00 04/21/17 12:00 04/21/17 12:00 General appearance: Present: no acute distress - EENT Eyes: Present: PERRL - Neck Neck: Present: normal ROM - Respiratory Respiratory effort: normal - Cardiovascular Rhythm: regular - Extremities Extremities: no ischemia - Abdominal General gastrointestinal: Present: soft, non-tender Female genitourinary: Present: deferred - Integumentary Integumentary: Present: clear, warm, dry - Musculoskeletal Musculoskeletal: strength equal bilaterally - Psychiatric Psychiatric: appropriate mood/affect
[2017-04-21 01:51] LABS: Basophils % (Auto) 0.8 % (0.0-1.8); Eosinophils % (Auto) 10.9 % (0.0-4.3); Hematocrit 24.1 % (30.3-42.9); Hemoglobin 8.1 gm/dl (10.1-14.3); Mean Corpuscular HGB Conc 34 % (30-34); Mean Corpuscular Hemoglobin 30 pg (28-32); Mean Corpuscular Volume 90 fl (79-97); Platelet Count 281 K/mm3 (140-440); Red Blood Count 2.67 M/mm3 (3.65-5.03); Red Cell Distribution Width 17.2 % (13.2-15.2); White Blood Count 6.4 K/mm3 (4.5-11.0)
[2017-04-21 02:11] LABS: Anion Gap 13 mmol/L; BUN/Creatinine Ratio 34; Blood Urea Nitrogen 17 mg/dL (7-17); Carbon Dioxide 27 mmol/L (22-30); Chloride 102.7 mmol/L (98-107); Glucose 106 mg/dL (65-100); Potassium 3.9 mmol/L (3.6-5.0); Sodium 139 mmol/L (137-145)
[2017-04-21] MEDS: PHENERGAN PR SCH ×3 (02:57→12:00)
[2017-04-21] MEDS: REGLAN PO SCH ×3 (03:49→12:14)
[2017-04-21] MEDS: ZOFRAN ODT PO SCH ×3 (03:58→12:14)
[2017-04-21] MEDS ORDERED: PEPCID PO SCH (10:00)
[2017-04-21] MEDS: DULCOLAX PR SCH (12:00)
[2017-04-21] MEDS: LOVENOX SUB-Q SCH (12:00)
[2017-04-21 12:11] VITALS: BP 91/46
[2017-04-21] MEDS ORDERED: TPN ADULT 2,016 ML IV SCH (20:00)
== END 2017-04-21 13:20 | disposition home or self-care (01) | DRG 326 ==
LOC: 3A 14:18 → 3B-SURG 04-15 13:27
PROVIDERS: ADMIT Specialist; ATTEND Specialist
PROC: 3E0234Z Introduction of Serum, Toxoid and Vaccine into Muscle, Percutaneous Approach (ICD-10-PCS; principal; 2017-04-15)
PROC: 0D778ZZ Dilation of Stomach, Pylorus, Via Natural or Artificial Opening Endoscopic (ICD-10-PCS; 2017-04-16)
PROC: 0BQT4ZZ Repair Diaphragm, Percutaneous Endoscopic Approach (ICD-10-PCS; 2017-04-17)
DX: K91.89 Other postprocedural complications and disorders of digestive system (principal); E43 Unspecified severe protein-calorie malnutrition; K44.0 Diaphragmatic hernia with obstruction, without gangrene; K21.9 Gastro-esophageal reflux disease without esophagitis; I10 Essential (primary) hypertension; K59.00 Constipation, unspecified; G47.30 Sleep apnea, unspecified; E66.9 Obesity, unspecified; Z98.84 Bariatric surgery status; Z23 Encounter for immunization; Z90.3 Acquired absence of stomach [part of]; Z90.49 Acquired absence of other specified parts of digestive tract; Z72.89 Other problems related to lifestyle; Z68.30 Body mass index [BMI] 30.0-30.9, adult
CPT/HCPCS: 36415; 74022; 74241; 74247; 80048; 80053; 82962; 83735; 84100; 84134; 84478; 85007; 85025; 85610; 86850; 86900; 86901; 90686; C1726; C9250; J0330; J0690; J1100; J1170; J1650; J1885; J2060; J2270; J2370; J2405; J2704; J2710; J2765; J3010; J7030; J7050; J7120; Q0162; Q9963

== ENCOUNTER 2017-04-24 10:00 | Inpatient (IN) | payer OTHER ==
--- NOTE | 2017-04-24 11:22 | Emergency Department Report ---
Chief Complaint: Nausea/Vomiting/Diarrhea Stated Complaint: NAUSEA/VOMITING Time Seen by Provider: 04/24/17 11:17 - HPI History of Present Illness: Patient here complaining of nausea and vomiting for months. She says she has history of esophagitis"AND HIATAL HERNIA REPAIR. Patient also said that she had gastric sleeve placed 3 months ago which should be in December. She said her nausea and vomiting and has been continuous since surgery. Patient with a family member and reported that she was just discharged from the hospital on . She states she was in the hospital for 2 weeks for nausea and vomiting. She had a PICC line placed which is in her left arm. Patient is also complaining of abdominal pain to her mid abdomen that is 6 out of 10 and also left leg swelling with some shortness of breath. Denies any chest pain. Patient has a history of asthma and borderline hypertension, meningitis in 1997. - ROS Review of Systems: All systems are negative unless stated in HPI above - Exam Vital Signs: Vital Signs 04/24/17 10:59 Temperature 98.6 F Pulse Rate 86 Respiratory 18 Rate Blood Pressure 126/78 O2 Sat by Pulse 100 Oximetry Physical Exam: Gen.: This is a 52-year-old female that appears ill, she is nontoxic in appearance. CV: S1 and S2. Regular rate and Regular rhythm no audible murmur. Extremity: Positive swelling to left leg otherwise normal exam with positive pulses and no neurovascular compromise. Patient with left arm PICC line. lUNGS: cLESR to auscultate bilaterally, no rhonchi wheezes or rales. SPO2 100% on room air and respirations at 18. No use of accessory muscles abdomen: Tender to palpate to mid abdomen but positive guarding. Normal bowel sounds. No rigidity or distention MSE screening note: Focused history and physical exam performed. Due to findings the following was ordered: ED Medical Decision Making - Medical Decision Making MDM: Patient screened by provider in triage area. Appropriate protocol initiated and patient to be seen in main ED by Dr. DIETZ Disposition for MSE Condition: Stable
[2017-04-24 12:08] LABS: Basophils % (Auto) 0.6 % (0.0-1.8); Eosinophils # (Auto) 0.2 K/mm3 (0.0-0.4); Eosinophils % (Auto) 2.2 % (0.0-4.3); Hematocrit 29.2 % (30.3-42.9); Hemoglobin 9.6 gm/dl (10.1-14.3); Lymphocytes # (Auto) 0.8 K/mm3 (1.2-5.4); Lymphocytes % (Auto) 9.5 % (13.4-35.0); Mean Corpuscular HGB Conc 33 % (30-34); Mean Corpuscular Hemoglobin 30 pg (28-32); Mean Corpuscular Volume 91 fl (79-97); Monocytes # (Auto) 0.5 K/mm3 (0.0-0.8); Monocytes % (Auto) 6.3 % (0.0-7.3); Platelet Count 381 K/mm3 (140-440); Red Blood Count 3.19 M/mm3 (3.65-5.03); Red Cell Distribution Width 17.7 % (13.2-15.2)
[2017-04-24 12:22] LABS: Alanine Aminotransferase 49 units/L (7-56); Albumin 3.1 g/dL (3.9-5); BUN/Creatinine Ratio 48; Blood Urea Nitrogen 19 mg/dL (7-17); Calcium 8.5 mg/dL (8.4-10.2); Hemolysis Index 13; Lipase 52 units/L (13-60)
[2017-04-24 12:31] LABS: Partial Thromboplastin Time 32.2 Sec. (24.2-36.6)
[2017-04-24] MEDS ORDERED: MYLICON PO PRN (14:39)
[2017-04-24] MEDS ORDERED: TORADOL IV PRN (14:39)
[2017-04-24] MEDS ORDERED: APRESOLINE IV PRN (14:39)
[2017-04-24] MEDS ORDERED: PHENERGAN PR PRN (14:47)
--- NOTE | 2017-04-24 14:52 | History and Physical Report ---
History of Present Illness History of present illness: 52 y.o. F presented to the hospital with nausea and vomiting s/p hiatal hernia repair and laparoscopic sleeve gastrectomy weeks prior, most recently she was admitted 04/05 and most recently 04/15. During her most recent admission she had a lap reduction of the hiatal hernia. Post op her nausea and vomiting improved with antiemetics and one dose of decadron. Prior to discharge she had an upper GI series that showed improvement of flow fo the contrast compared to previous. She was doing well at home until she started to have vomiting and spitting up of thick spit again 2 days ago. She states she was taking the medication as prescribed but it didnt help. She has abdominal pain near her umbilicus. She denies fever or chills. She has off and on nausea. Past History Past Medical History: other (prev hx of HTN, seizures years ago when she had meningitis ) Past Surgical History: appendectomy, Other (Lap sleeve gastrectomyand hiatal hernia, repair of hiatal hernia esophagal dilations x2, lap hiatal hernia reduction) Social history: no significant social history Family history: no significant family history Medications and Allergies Allergies Allergy/AdvReac Type Severity Reaction Status Date / Time morphine AdvReac Vomiting Verified 04/18/17 08:22 Home Medications Medication Instructions Recorded Confirmed Last Taken Type Magnesium Citrate 295 ml PO ONCE #1 solution 02/11/17 04/15/17 Unknown Rx Ondansetron [Zofran TAB] 4 mg PO Q8HR PRN #15 tablet 02/11/17 04/15/17 Unknown Rx Active Meds: Active Medications Enoxaparin Sodium (Lovenox) 40 mg SUB-Q QDAY MANNY Hydralazine HCl (Apresoline) 10 mg IV Q6H PRN PRN Reason: SBP > 150 Lactated Ringer's (Lactated Ringers) 1,000 mls @ 150 mls/hr IV DIRECT MANNY Ketorolac Tromethamine (Toradol) 30 mg IV Q6H PRN PRN Reason: Pain Stop: 04/26/17 14:59 Lorazepam (Ativan) 0.5 mg IV Q8H MANNY Metoclopramide HCl (Reglan) 10 mg IV Q8H MANNY Ondansetron HCl (Zofran) 4 mg IV Q4H MANNY Promethazine HCl (Phenergan) 12.5 mg MD ONCE PRN PRN Reason: N/V unrelieved by Reglan Simethicone (Mylicon) 80 mg PO Q6H PRN PRN Reason: Gas pain Review of Systems All systems: negative - Constitutional anorexia, fatigue - Gastrointestinal abdominal pain, nausea, vomiting - Muskuloskeletal muscle weakness, other (lower extremities edema ) Exam Vital Signs Temp Pulse Resp BP Pulse Ox 98.6 F 86 18 126/78 100 04/24/17 10:59 04/24/17 10:59 04/24/17 10:59 04/24/17 10:59 04/24/17 10:59 - General physical appearance Positive: well developed, no distress - Eyes Positive: PERRL - Respiratory Positive: normal expansion, normal respiratory effort - Cardiovascular Rhythm: regular Heart Sounds: Present: S1 & S2 - Extremities Extremities: no ischemia, abnormal (+1 lower extremities edema bl ) - Abdomen Abdomen: Present: soft, other (flat, tender at umbilicus, no hernia, incisions cdi. no rebound no guarding ) - Neurologic Neurologic: alert and oriented to time, place and person, motor strength and sensation are grossly intact - Musculoskeletal normal gait, normal posture - Psychiatric Psychiatric: appropriate mood/affect Results - Labs 04/25/17 04:45 04/25/17 04:45 Abnormal lab results 04/24/17 04/24/17 Range/Units 11:41 11:41 RBC 3.19 L (3.65-5.03) M/mm3 Hgb 9.6 L (10.1-14.3) gm/dl Hct 29.2 L (30.3-42.9) % RDW 17.7 H (13.2-15.2) % Lymph % (Auto) 9.5 L (13.4-35.0) % Lymph # 0.8 L (1.2-5.4) K/mm3 Seg Neutrophils % 81.4 H (40.0-70.0) % BUN 19 H (7-17) mg/dL Creatinine 0.4 L (0.7-1.2) mg/dL Glucose 126 H (65-100) mg/dL Albumin 3.1 L (3.9-5) g/dL Diabetes panel 04/24/17 Range/Units 11:41 Sodium 137 (137-145) mmol/L Potassium 4.9 D (3.6-5.0) mmol/L Chloride 100.2 (98-107) mmol/L Carbon Dioxide 24 (22-30) mmol/L BUN 19 H (7-17) mg/dL Creatinine 0.4 L (0.7-1.2) mg/dL Glucose 126 H (65-100) mg/dL Calcium 8.5 (8.4-10.2) mg/dL AST 23 (5-40) units/L ALT 49 (7-56) units/L Alkaline Phosphatase 94 (35-129) units/L Total Protein 6.5 (6.3-8.2) g/dL Albumin 3.1 L (3.9-5) g/dL Calcium panel 04/24/17 Range/Units 11:41 Calcium 8.5 (8.4-10.2) mg/dL Albumin 3.1 L (3.9-5) g/dL Pituitary panel 04/24/17 Range/Units 11:41 Sodium 137 (137-145) mmol/L Potassium 4.9 D (3.6-5.0) mmol/L Chloride 100.2 (98-107) mmol/L Carbon Dioxide 24 (22-30) mmol/L BUN 19 H (7-17) mg/dL Creatinine 0.4 L (0.7-1.2) mg/dL Glucose 126 H (65-100) mg/dL Calcium 8.5 (8.4-10.2) mg/dL Adrenal panel 04/24/17 Range/Units 11:41 Sodium 137 (137-145) mmol/L Potassium 4.9 D (3.6-5.0) mmol/L Chloride 100.2 (98-107) mmol/L Carbon Dioxide 24 (22-30) mmol/L BUN 19 H (7-17) mg/dL Creatinine 0.4 L (0.7-1.2) mg/dL Glucose 126 H (65-100) mg/dL Calcium 8.5 (8.4-10.2) mg/dL Total Bilirubin 0.60 (0.1-1.2) mg/dL AST 23 (5-40) units/L ALT 49 (7-56) units/L Alkaline Phosphatase 94 (35-129) units/L Total Protein 6.5 (6.3-8.2) g/dL Albumin 3.1 L (3.9-5) g/dL Assessment and Plan 52 y.o. F with hx of sleeve gastrectomy and hiatal hernia repair, redo- hiatal hernia repair, and reduction of hiatal hernia presents with n/v : Admit to Dr Owen - npo, antiemetics -IVF, consult nutrition for restart TPN Upper extremities and lower extremity edema: r/o DVT Repeat upper GI series when able to tolerate PO GI and DVT proph
[2017-04-24] MEDS: LACTATED RINGERS 1,000 ML IV SCH ×2 (17:14→23:28)
[2017-04-24] MEDS: ATIVAN IV SCH (17:14)
[2017-04-24] MEDS: ZOFRAN IV SCH ×3 (17:14→23:27)
--- NOTE | 2017-04-24 17:18 | XRay Report ---
FINAL REPORT EXAM: XR ABD SERIES W CXR 1V HISTORY: abdominal pain TECHNIQUE: Supine and upright abdomen and frontal view of the chest PRIORS: None. FINDINGS: Moderate amount of stool and gas present within the colon. No evidence of colonic or small bowel dilatation. No signs of free air. No abnormal calcifications are identified. Small amount of contrast material remains in the rectum lower sigmoid. Cardiac and mediastinal contours are unremarkable. No focal pulmonary infiltrate identified. No pleural fluid collection seen. Pulmonary vasculature is unremarkable there left-sided PICC line present catheter tip at the SVC. IMPRESSION: Nonobstructive bowel gas pattern. No acute abnormality seen. Left PICC line in satisfactory position No acute abnormality identified in the chest
[2017-04-24] MEDS: REGLAN IV SCH (23:27)
[2017-04-25] MEDS: ATIVAN IV SCH ×3 (02:19→15:30)
[2017-04-25] MEDS: ZOFRAN IV SCH ×5 (03:08→20:40)
[2017-04-25 04:59] LABS: Basophils % (Auto) 0.7 % (0.0-1.8); Eosinophils # (Auto) 0.3 K/mm3 (0.0-0.4); Eosinophils % (Auto) 4.7 % (0.0-4.3); Hematocrit 22.8 % (30.3-42.9); Hemoglobin 7.6 gm/dl (10.1-14.3); Lymphocytes # (Auto) 1.3 K/mm3 (1.2-5.4); Lymphocytes % (Auto) 20.5 % (13.4-35.0); Mean Corpuscular HGB Conc 33 % (30-34); Mean Corpuscular Hemoglobin 31 pg (28-32); Mean Corpuscular Volume 91 fl (79-97); Monocytes # (Auto) 0.6 K/mm3 (0.0-0.8); Monocytes % (Auto) 8.9 % (0.0-7.3); Platelet Count 309 K/mm3 (140-440); Red Cell Distribution Width 17.9 % (13.2-15.2)
[2017-04-25 05:20] LABS: Alanine Aminotransferase 36 units/L (7-56); Albumin 2.3 g/dL (3.9-5); BUN/Creatinine Ratio 34; Blood Urea Nitrogen 17 mg/dL (7-17); Calcium 8.1 mg/dL (8.4-10.2); Hemolysis Index 1
[2017-04-25] MEDS ORDERED: PROVENTIL IH PRN (08:00)
[2017-04-25] MEDS: REGLAN IV SCH ×2 (08:06→17:02)
[2017-04-25] MEDS: LOVENOX SUB-Q SCH ×2 (08:07→10:00)
[2017-04-25] MEDS: LACTATED RINGERS 1,000 ML IV SCH ×2 (08:17→15:38)
[2017-04-25 08:32] LABS: Bilirubin,Urine NEG (Negative); Blood,Urine SM (Negative); Color,Urine Amber (Yellow); Mucus,Urine 2+ /HPF; Nitrite,Urine NEG (Negative); WBC,Urine > 182.0 /HPF (0.0-6.0)
[2017-04-25] MEDS ORDERED: NACL 0.9% 1000 ML 1,000 ML IV ONE (11:00)
[2017-04-25] MEDS ORDERED: DECADRON IV ONE (11:00)
[2017-04-25] MEDS: CARAFATE PO SCH ×2 (12:00→17:01)
[2017-04-25] MEDS: PROTONIX IV SCH (13:23)
--- NOTE | 2017-04-25 15:19 | Vascular Lab Report ---
LEFT UPPER EXTREMITY VENOUS DUPLEX: REASON FOR EXAM: Pain and swelling of the left upper extremity COMMENTS ON THE LEFT: All arm veins visualized are freely compressible without evidence of internal echogenicity. The subclavian and internal jugular veins are free of thrombus. Flow is spontaneous and phasic throughout. A PICC line is noted in the basilic vein extending into the subclavian vein. COMMENTS ON THE RIGHT: A limited study of the jugular and subclavian veins shows no evidence of thrombus. IMPRESSION: No evidence of acute or chronic deep venous thrombosis in the left upper extremity. There is a PICC line noted in the left basilic vein extending into the subclavian vein.
--- NOTE | 2017-04-25 17:01 | Progress Note ---
Assessment and Plan 52 y.o. F with hx of sleeve gastrectomy and hiatal hernia repair, redo- hiatal hernia repair, and reduction of hiatal hernia presents with n/v : - Nausea and vomiting: antiemetics. One dose of decadron today. Ok to have sips of clears. Will hold off Upper GI series until she is tolerating clears -IVF, consult nutrition for restart TPN Upper extremities and lower extremity edema: r/o DVT = both negative Plan for EGD on Sunday to eval. level of GE junction- eval for short esophag. Borderline hypotensive: 1 L bolus given with appropriate response- likely 2/2 dehydration . Hg 9-->7: She was likely concentrated at 9 and after hydration her Hgb is around 7. She has no reason for bleeding. Will repeat h/h in am. If she has tachycardia or hypotension h/h and be repeated earlier. GI and DVT proph Subjective Narrative: Pt feeling a litter better compared to yesterday. One episode of vomiting overnight. Continues to have spitting of thick mucus. Denies abd. pain today. Denies fever or chills. +flatus. BM 2 days ago. afebrile Objective Vital Signs - 12hr 04/25/17 04/25/17 04/25/17 07:37 08:03 11:06 Temperature 99.0 F 98.8 F Pulse Rate 88 87 Respiratory 16 18 Rate Blood Pressure 83/45 96/54 O2 Sat by Pulse 78 L 95 99 Oximetry 04/25/17 14:59 Temperature 98.6 F Pulse Rate 82 Respiratory 20 Rate Blood Pressure 100/68 O2 Sat by Pulse 97 Oximetry - General physical appearance well developed, no distress - Eyes PERRL - Respiratory normal expansion, normal respiratory effort - Abdomen soft, bowel sounds normal, other (incision cdi. minimal tenderness at umbilicus. no rebound no guarding. ) - Integumentary no rash - Neurologic normal coordination, normal sensation - Musculoskeletal normal posture - Psychiatric oriented to time, oriented to person, oriented to place - Labs 04/25/17 04:45 04/25/17 04:45 Diabetes panel 04/25/17 Range/Units 04:45 Sodium 138 (137-145) mmol/L Potassium 4.0 (3.6-5.0) mmol/L Chloride 103.6 (98-107) mmol/L Carbon Dioxide 25 (22-30) mmol/L BUN 17 (7-17) mg/dL Creatinine 0.5 L (0.7-1.2) mg/dL Glucose 89 (65-100) mg/dL Calcium 8.1 L (8.4-10.2) mg/dL AST 20 (5-40) units/L ALT 36 (7-56) units/L Alkaline Phosphatase 73 (35-129) units/L Total Protein 5.2 L (6.3-8.2) g/dL Albumin 2.3 L (3.9-5) g/dL Calcium panel 04/25/17 Range/Units 04:45 Calcium 8.1 L (8.4-10.2) mg/dL Phosphorus 3.30 (2.5-4.5) mg/dL Albumin 2.3 L (3.9-5) g/dL Pituitary panel 04/25/17 Range/Units 04:45 Sodium 138 (137-145) mmol/L Potassium 4.0 (3.6-5.0) mmol/L Chloride 103.6 (98-107) mmol/L Carbon Dioxide 25 (22-30) mmol/L BUN 17 (7-17) mg/dL Creatinine 0.5 L (0.7-1.2) mg/dL Glucose 89 (65-100) mg/dL Calcium 8.1 L (8.4-10.2) mg/dL Adrenal panel 04/25/17 Range/Units 04:45 Sodium 138 (137-145) mmol/L Potassium 4.0 (3.6-5.0) mmol/L Chloride 103.6 (98-107) mmol/L Carbon Dioxide 25 (22-30) mmol/L BUN 17 (7-17) mg/dL Creatinine 0.5 L (0.7-1.2) mg/dL Glucose 89 (65-100) mg/dL Calcium 8.1 L (8.4-10.2) mg/dL Total Bilirubin 1.00 (0.1-1.2) mg/dL AST 20 (5-40) units/L ALT 36 (7-56) units/L Alkaline Phosphatase 73 (35-129) units/L Total Protein 5.2 L (6.3-8.2) g/dL Albumin 2.3 L (3.9-5) g/dL
[2017-04-25] MEDS ORDERED: TPN ADULT 2,016 ML IV SCH (20:00)
[2017-04-25] MEDS ORDERED: INTRALIPID 20% 250 ML IV SCH (20:00)
[2017-04-26] MEDS: CARAFATE PO SCH ×4 (00:17→18:46)
[2017-04-26] MEDS: REGLAN IV SCH ×4 (00:17→15:26)
[2017-04-26] MEDS: ATIVAN IV SCH ×3 (00:18→15:26)
[2017-04-26] MEDS: ZOFRAN IV SCH ×6 (00:18→20:58)
[2017-04-26 04:57] LABS: Basophils % (Auto) 0.5 % (0.0-1.8); Eosinophils # (Auto) 0.1 K/mm3 (0.0-0.4); Eosinophils % (Auto) 1.3 % (0.0-4.3); Hematocrit 24.3 % (30.3-42.9); Hemoglobin 7.7 gm/dl (10.1-14.3); Lymphocytes # (Auto) 1.1 K/mm3 (1.2-5.4); Lymphocytes % (Auto) 15.7 % (13.4-35.0); Mean Corpuscular HGB Conc 32 % (30-34); Mean Corpuscular Hemoglobin 29 pg (28-32); Mean Corpuscular Volume 91 fl (79-97); Monocytes # (Auto) 0.6 K/mm3 (0.0-0.8); Monocytes % (Auto) 8.2 % (0.0-7.3); Platelet Count 337 K/mm3 (140-440); Red Blood Count 2.68 M/mm3 (3.65-5.03); Red Cell Distribution Width 17.9 % (13.2-15.2)
[2017-04-26 05:10] LABS: Alanine Aminotransferase 48 units/L (7-56); Albumin 2.4 g/dL (3.9-5); BUN/Creatinine Ratio 24; Blood Urea Nitrogen 12 mg/dL (7-17); Calcium 8.1 mg/dL (8.4-10.2); Hemolysis Index 14
--- NOTE | 2017-04-26 06:49 | Progress Note ---
Assessment and Plan 52 y.o. F with hx of sleeve gastrectomy and hiatal hernia repair, redo- hiatal hernia repair, and reduction of hiatal hernia presents with n/v : - Nausea and vomiting: antiemetics. Tolerated clear liquids yesterday. Continue clear liquids with protein shakes as tolerated. - Continue IVF for adeqaute hydration. Continue TPN for adequate nutrition. - Upper extremities and lower extremity edema: r/o DVT = both negative - Upper GI series ordered - Plan for EGD on Sunday to eval. level of GE junction- eval for short esophag. - Borderline hypotensive: 1 L bolus given with appropriate response- likely 2/2 dehydration . - Hg 9-->7: HgB stabe at 7.7. 2/2 to dehydration and hemoconcentration. continue daily HgB checks - GI and DVT proph Subjective Patient Reports: Positive: no new complaints Narrative: No acute events overnight. Pt denies any N/V yesterday and was able to tolerate clear liquids. Says she feels better today. She is interested in having puree foods today. Pt states she has been having regular loose BM. Denies any abdominal pain. Objective Vital Signs - 12hr 04/25/17 04/25/17 04/25/17 19:39 22:00 23:11 Temperature 98.8 F 98.3 F Pulse Rate 85 83 Respiratory 20 20 Rate Respiratory 18 Rate [Medial Abdomen] Blood Pressure 106/72 109/67 O2 Sat by Pulse 97 97 Oximetry 04/26/17 03:41 Temperature 98.6 F Pulse Rate 77 Respiratory 20 Rate Respiratory Rate [Medial Abdomen] Blood Pressure 110/79 O2 Sat by Pulse 97 Oximetry - General physical appearance well developed, well nourished, no distress - Eyes normal occular movement - ENT no hearing loss - Respiratory normal expansion, normal respiratory effort, clear to auscultation - Abdomen soft, bowel sounds normal, other (non tender. incisions cdi. ) - Integumentary no rash - Neurologic normal coordination, normal sensation - Musculoskeletal normal posture - Psychiatric oriented to time, oriented to person, oriented to place, speech is normal, memory intact - Labs 04/26/17 04:30 04/26/17 04:30 Diabetes panel 04/26/17 Range/Units 04:30 Sodium 136 L (137-145) mmol/L Potassium 4.3 (3.6-5.0) mmol/L Chloride 100.2 (98-107) mmol/L Carbon Dioxide 24 (22-30) mmol/L BUN 12 (7-17) mg/dL Creatinine 0.5 L (0.7-1.2) mg/dL Glucose 111 H (65-100) mg/dL Calcium 8.1 L (8.4-10.2) mg/dL AST 33 (5-40) units/L ALT 48 (7-56) units/L Alkaline Phosphatase 86 (35-129) units/L Total Protein 5.4 L (6.3-8.2) g/dL Albumin 2.4 L (3.9-5) g/dL Calcium panel 04/26/17 Range/Units 04:30 Calcium 8.1 L (8.4-10.2) mg/dL Phosphorus 3.20 (2.5-4.5) mg/dL Albumin 2.4 L (3.9-5) g/dL Pituitary panel 04/26/17 Range/Units 04:30 Sodium 136 L (137-145) mmol/L Potassium 4.3 (3.6-5.0) mmol/L Chloride 100.2 (98-107) mmol/L Carbon Dioxide 24 (22-30) mmol/L BUN 12 (7-17) mg/dL Creatinine 0.5 L (0.7-1.2) mg/dL Glucose 111 H (65-100) mg/dL Calcium 8.1 L (8.4-10.2) mg/dL Adrenal panel 04/26/17 Range/Units 04:30 Sodium 136 L (137-145) mmol/L Potassium 4.3 (3.6-5.0) mmol/L Chloride 100.2 (98-107) mmol/L Carbon Dioxide 24 (22-30) mmol/L BUN 12 (7-17) mg/dL Creatinine 0.5 L (0.7-1.2) mg/dL Glucose 111 H (65-100) mg/dL Calcium 8.1 L (8.4-10.2) mg/dL Total Bilirubin 0.60 (0.1-1.2) mg/dL AST 33 (5-40) units/L ALT 48 (7-56) units/L Alkaline Phosphatase 86 (35-129) units/L Total Protein 5.4 L (6.3-8.2) g/dL Albumin 2.4 L (3.9-5) g/dL
[2017-04-26] MEDS: LOVENOX SUB-Q SCH (08:59)
[2017-04-26] MEDS: PROTONIX IV SCH (09:00)
--- NOTE | 2017-04-26 14:19 | Fluoroscopy Report ---
UPPER GI SERIES WITH AIR-CONTRAST History: Nausea and vomiting. Findings: The patient reports a history of gastric sleeve surgical changes and recent hiatal hernia repair. Deglutition is normal. No evidence for aspiration. The esophagus is normal caliber. There are 2 smooth indentations along the left lateral surface of the distal esophagus which are presumably are related to recent surgical changes to repair a hiatal hernia. This does not have the appearance of an esophageal mass. No recurrent hernia is identified. There appeared to be delayed esophageal emptying throughout this exam. Occasional esophageal spasm was witnessed. Gastric sleeve surgical changes are identified which appear intact. The remaining gastric cavity demonstrates normal mucosal pattern. There is no evidence for ulceration or obstruction. No extravasation of contrast. The duodenal bulb and duodenal sweep are within normal limits. Impression: Surgical changes as outlined above. Delayed esophageal emptying is suspected throughout this exam. I question if there is perhaps mild obstruction near the GE junction. The esophagus eventually emptied. No high grade obstruction. This could also be secondary to esophageal dysmotility.
[2017-04-26] MEDS ORDERED: TPN ADULT 2,016 ML IV SCH (20:00)
[2017-04-27] MEDS: ZOFRAN IV SCH ×7 (00:17→23:24)
[2017-04-27] MEDS: ATIVAN IV SCH ×4 (00:21→23:23)
[2017-04-27] MEDS: REGLAN IV SCH ×4 (00:22→23:24)
[2017-04-27] MEDS: CARAFATE PO SCH ×5 (00:22→23:25)
[2017-04-27 06:19] LABS: Basophils # (Auto) 0.1 K/mm3 (0.0-0.1); Basophils % (Auto) 1.1 % (0.0-1.8); Eosinophils # (Auto) 0.3 K/mm3 (0.0-0.4); Eosinophils % (Auto) 5.7 % (0.0-4.3); Hematocrit 22.7 % (30.3-42.9); Hemoglobin 7.6 gm/dl (10.1-14.3); Lymphocytes # (Auto) 1.1 K/mm3 (1.2-5.4); Lymphocytes % (Auto) 22.4 % (13.4-35.0); Mean Corpuscular HGB Conc 33 % (30-34); Mean Corpuscular Hemoglobin 30 pg (28-32); Mean Corpuscular Volume 91 fl (79-97); Monocytes # (Auto) 0.6 K/mm3 (0.0-0.8); Monocytes % (Auto) 12.7 % (0.0-7.3); Platelet Count 325 K/mm3 (140-440); Red Cell Distribution Width 17.5 % (13.2-15.2)
[2017-04-27 06:44] LABS: Alanine Aminotransferase 43 units/L (7-56); Albumin 2.4 g/dL (3.9-5); BUN/Creatinine Ratio 30; Blood Urea Nitrogen 15 mg/dL (7-17); Calcium 7.7 mg/dL (8.4-10.2); Hemolysis Index 3
--- NOTE | 2017-04-27 07:43 | Progress Note ---
Assessment and Plan 52 y.o. F with hx of sleeve gastrectomy and hiatal hernia repair, redo- hiatal hernia repair, and reduction of hiatal hernia presents with n/v : - Upper GI series showed delayed esophageal emptying and mild obstruction at GE junction. - Plan for EGD today to evaluate level of GE junction - Nausea and vomiting: antiemetics. Tolerated clear liquids yesterday. Continue clear liquids with protein shakes as tolerated. - Continue IVF for adeqaute hydration. Continue TPN for adequate nutrition. - Upper extremities and lower extremity edema: r/o DVT = both negative - Borderline hypotensive- likely 2/2 dehydration. - Hg 9-->7: HgB stabe at 7.6. 2/2 to dehydration and hemoconcentration. continue daily HgB checks - GI and DVT proph Subjective Patient Reports: Positive: no new complaints Narrative: No acute events overnight. Denies N/V. Tolerating clear liquid diet, still interested in starting thicker liquids. Denies any pain. Pt ambulating multiple times daily with no difficulties. Starting spitting today. No vomiting . Objective Vital Signs - 12hr 04/26/17 04/27/17 04/27/17 21:15 00:24 01:09 Temperature 98.9 F 98.6 F Pulse Rate 80 81 81 Respiratory 20 18 Rate Blood Pressure Blood Pressure 94/55 115/75 [Left] O2 Sat by Pulse 97 97 97 Oximetry 04/27/17 04/27/17 04:05 04:06 Temperature 98.8 F Pulse Rate 75 73 Respiratory 20 Rate Blood Pressure 101/53 Blood Pressure [Left] O2 Sat by Pulse 100 100 Oximetry - General physical appearance well developed, well nourished, no distress - Eyes normal occular movement - ENT no hearing loss - Respiratory normal expansion, normal respiratory effort, clear to auscultation - Abdomen soft, bowel sounds normal, other (non tender. ) - Integumentary no rash - Neurologic normal coordination - Musculoskeletal normal posture - Psychiatric oriented to time, oriented to person, oriented to place, speech is normal, memory intact - Labs 04/27/17 Unknown 04/27/17 Unknown Diabetes panel 04/27/17 Range/Units Unknown Sodium 138 (137-145) mmol/L Potassium 4.2 (3.6-5.0) mmol/L Chloride 101.8 (98-107) mmol/L Carbon Dioxide 26 (22-30) mmol/L BUN 15 (7-17) mg/dL Creatinine 0.5 L (0.7-1.2) mg/dL Glucose 109 H (65-100) mg/dL Calcium 7.7 L (8.4-10.2) mg/dL AST 18 (5-40) units/L ALT 43 (7-56) units/L Alkaline Phosphatase 80 (35-129) units/L Total Protein 5.3 L (6.3-8.2) g/dL Albumin 2.4 L (3.9-5) g/dL Calcium panel 04/27/17 Range/Units Unknown Calcium 7.7 L (8.4-10.2) mg/dL Phosphorus 3.90 D (2.5-4.5) mg/dL Albumin 2.4 L (3.9-5) g/dL Pituitary panel 04/27/17 Range/Units Unknown Sodium 138 (137-145) mmol/L Potassium 4.2 (3.6-5.0) mmol/L Chloride 101.8 (98-107) mmol/L Carbon Dioxide 26 (22-30) mmol/L BUN 15 (7-17) mg/dL Creatinine 0.5 L (0.7-1.2) mg/dL Glucose 109 H (65-100) mg/dL Calcium 7.7 L (8.4-10.2) mg/dL Adrenal panel 04/27/17 Range/Units Unknown Sodium 138 (137-145) mmol/L Potassium 4.2 (3.6-5.0) mmol/L Chloride 101.8 (98-107) mmol/L Carbon Dioxide 26 (22-30) mmol/L BUN 15 (7-17) mg/dL Creatinine 0.5 L (0.7-1.2) mg/dL Glucose 109 H (65-100) mg/dL Calcium 7.7 L (8.4-10.2) mg/dL Total Bilirubin 0.50 (0.1-1.2) mg/dL AST 18 (5-40) units/L ALT 43 (7-56) units/L Alkaline Phosphatase 80 (35-129) units/L Total Protein 5.3 L (6.3-8.2) g/dL Albumin 2.4 L (3.9-5) g/dL
[2017-04-27] MEDS: PROTONIX IV SCH (09:54)
[2017-04-27] MEDS: LOVENOX SUB-Q SCH (09:55)
[2017-04-27] MEDS ORDERED: NACL 0.9% 1000 ML 1,000 ML IV SCH (12:00)
--- NOTE | 2017-04-27 14:56 | Anesthesia Consultation ---
Anesthesia Consult and Med Hx Date of service: 04/27/17 - Airway Anesthetic Teeth Evaluation: Good ROM Head & Neck: Adequate Mental/Hyoid Distance: Adequate Mallampati Class: Class I Intubation Access Assessment: Good - Pulmonary Exam CTA: Yes - Cardiac Exam Cardiac Exam: RRR - Pre-Operative Health Status ASA Pre-Surgery Classification: ASA2 Proposed Anesthetic Plan: General - Pulmonary Hx Smoking: No Hx Asthma: No COPD: No Hx Pneumonia: No Hx Sleep Apnea: Yes (uses cpap) - Cardiovascular System Hx Hypertension: Yes ("borderline" no meds) Hx Pacemaker: No Hx Internal Defibrillator: No Hx Heart Murmur: Yes (none detected during preassessment) - Central Nervous System Hx Seizures: Yes (1997 due to menningitis) Hx Psychiatric Problems: No - Gastrointestinal Hx Gastroesophageal Reflux Disease: Yes (nausea and vomiting, dysphagea) - Endocrine Hx End Stage Renal Disease: No - Other Systems Hx Alcohol Use: Yes (occas) Hx Cancer: No Hx Obesity: Yes - Additional Comments Anesthesia Medical History Comments: Pt c/o continual nausea from hiatal hernia. Otherwise describes herself as healthy.
--- NOTE | 2017-04-27 14:57 | Anesthesia Day of Surgery ---
Anesthesia Day of Surgery - Day of Surgery Patient Examined: Yes Patient H&P Reviewed: Yes Patient is NPO: Yes
[2017-04-27] MEDS ORDERED: DIPRIVAN 10 MG/ML IV ONE (16:07)
--- NOTE | 2017-04-27 17:00 | Operative Report ---
Operative Report Operative Report: DATE 04/27/17 SURGERY: Upper endoscopy. SURGEON: Dr. Owen HYDROPRESS OPERATOR: Francine Booth PRE OP DX: hx of hiatal hernia POST OP DX: hiatal hernia, esophagal candidiasis TYPE OF ANESTHESIA: MAC. ESTIMATED BLOOD LOSS: None. COMPLICATIONS: None. SPECIMENS REMOVED: None. FINDINGS: 1. Candidiasis of the esophagus. 2. GE junction at 35cm, hiatus 38cm, pylorus 45cm. 3. Sleeve normal INDICATIONS:INDICATION FOR PROCEDURE: Patient is a 52-year-old female with hx of lap gastric sleeve with hiatal hernia repair with subsequent repair of hiatal hernia, esophagal dilation and most recently reduction of hiatal hernia. She continues to have vomiting intermittently and continues to have constant spitting. Recent Upper GI series show slow transit of contrast. EGD today to determine the measurement of the GE junction, and hiatus. PROCEDURE DETAILS: After consent was reviewed, patient was taken back to the operating room where patient was placed in the left lateral decubitus position and a bite block was placed in the mouth. After a time-out was called, MAC anesthesia was initiated. The endoscope passed into her oropharynx, into her esophagus, visualized the entire esophagus. The esophagus has numerous area of white patches and salvia. This appeared to be candidiasis. The GE junction was measured at 35cm from the incisors. The hiatus was at 38cm. There appears to be small portion of sleeve that has herniated (apprx 3cm) into her chest. The esophagus and hiatus was less torturous then prior egd. After passing the endoscope into the hiatus the sleeve appeared to be without issues. I then desufflated the stomach and removed the endoscope. Patient tolerated procedure well and was transferred to recovery room in good and stable condition.
[2017-04-27] MEDS ORDERED: TPN ADULT 2,016 ML IV SCH (20:00)
[2017-04-27] MEDS ORDERED: INTRALIPID 20% 250 ML IV SCH (20:00)
[2017-04-28] MEDS: ZOFRAN IV SCH ×5 (03:16→22:58)
[2017-04-28] MEDS: CARAFATE PO SCH ×3 (05:52→18:18)
[2017-04-28 07:24] LABS: BUN/Creatinine Ratio 28; Blood Urea Nitrogen 11 mg/dL (7-17); Hemolysis Index 1
[2017-04-28] MEDS: PROTONIX IV SCH (09:50)
[2017-04-28] MEDS: LOVENOX SUB-Q SCH (09:50)
[2017-04-28] MEDS: REGLAN IV SCH ×2 (09:50→18:18)
--- NOTE | 2017-04-28 13:39 | Progress Note ---
Assessment and Plan 52 y.o. F with hx of sleeve gastrectomy and hiatal hernia repair, redo- hiatal hernia repair, and reduction of hiatal hernia presents with n/v : - EGD showed esophageal candidiasis and a less tortorous esophagus from previous EGD - Upper GI series showed delayed esophageal emptying and mild obstruction at GE junction. - Nausea and vomiting: antiemetics. Tolerating clear liquids. - Continue clear liquids, advancing diet to softs today. - Continue IVF for adeqaute hydration. Continue TPN for adequate nutrition. - Starting colace and miralax PO - Day 1 of 7 of diflucan for esophageal candidiasis - Upper extremities and lower extremity edema: r/o DVT = both negative - Hg 9-->7: HgB stabe at 7.6. 2/2 to dehydration and hemoconcentration. continue daily HgB checks - GI and DVT proph Subjective Patient Reports: Positive: no new complaints Narrative: No acute events overnight. Pt denies N/V. Still spitting up frequently. Tolerating clear liquid diet and wants to advance diet to soft foods. Passing gas but no BM since admission. Pt asking for stool softeners. Pt denies any pain. Objective Vital Signs - 12hr 04/28/17 04/28/17 04/28/17 04:37 07:10 07:11 Temperature 98.8 F 98.8 F Pulse Rate 92 H 86 89 Respiratory 20 18 Rate Blood Pressure 107/56 Blood Pressure 104/60 [Left] O2 Sat by Pulse 96 99 97 Oximetry 04/28/17 11:42 Temperature 98.7 F Pulse Rate 83 Respiratory 18 Rate Blood Pressure Blood Pressure 98/59 [Left] O2 Sat by Pulse 99 Oximetry - General physical appearance well developed, well nourished, no distress - Eyes normal occular movement - ENT no hearing loss - Respiratory normal expansion, normal respiratory effort, clear to auscultation - Abdomen soft, bowel sounds normal - Integumentary no rash - Neurologic normal coordination, normal sensation - Musculoskeletal normal gait, normal posture - Psychiatric oriented to time, oriented to person, oriented to place, speech is normal, memory intact - Labs 04/27/17 Unknown 04/28/17 06:00 Diabetes panel 04/28/17 Range/Units 06:00 Sodium 138 (137-145) mmol/L Potassium 4.0 (3.6-5.0) mmol/L Chloride 101.9 (98-107) mmol/L Carbon Dioxide 26 (22-30) mmol/L BUN 11 (7-17) mg/dL Creatinine 0.4 L (0.7-1.2) mg/dL Glucose 113 H (65-100) mg/dL Calcium 8.0 L (8.4-10.2) mg/dL Calcium panel 04/28/17 Range/Units 06:00 Calcium 8.0 L (8.4-10.2) mg/dL Phosphorus 3.90 (2.5-4.5) mg/dL Pituitary panel 04/28/17 Range/Units 06:00 Sodium 138 (137-145) mmol/L Potassium 4.0 (3.6-5.0) mmol/L Chloride 101.9 (98-107) mmol/L Carbon Dioxide 26 (22-30) mmol/L BUN 11 (7-17) mg/dL Creatinine 0.4 L (0.7-1.2) mg/dL Glucose 113 H (65-100) mg/dL Calcium 8.0 L (8.4-10.2) mg/dL Adrenal panel 04/28/17 Range/Units 06:00 Sodium 138 (137-145) mmol/L Potassium 4.0 (3.6-5.0) mmol/L Chloride 101.9 (98-107) mmol/L Carbon Dioxide 26 (22-30) mmol/L BUN 11 (7-17) mg/dL Creatinine 0.4 L (0.7-1.2) mg/dL Glucose 113 H (65-100) mg/dL Calcium 8.0 L (8.4-10.2) mg/dL
[2017-04-28] MEDS: DIFLUCAN 200 MG/100 ML BAG IV SCH (13:53)
[2017-04-28] MEDS: ATIVAN IV SCH ×2 (15:22→22:57)
[2017-04-28] MEDS: MIRALAX 3350 PO SCH (15:26)
[2017-04-28] MEDS ORDERED: TPN ADULT 2,016 ML IV SCH (20:00)
[2017-04-28] MEDS: COLACE PO SCH (21:54)
[2017-04-29] MEDS: REGLAN IV SCH ×3 (03:47→16:08)
[2017-04-29] MEDS: CARAFATE PO SCH ×5 (03:48→23:04)
[2017-04-29] MEDS: COLACE PO SCH ×2 (03:48→12:21)
[2017-04-29] MEDS: ZOFRAN IV SCH ×4 (03:49→15:29)
[2017-04-29 07:20] LABS: Basophils % (Auto) 0.6 % (0.0-1.8); Eosinophils # (Auto) 0.3 K/mm3 (0.0-0.4); Eosinophils % (Auto) 4.9 % (0.0-4.3); Hemoglobin 8.3 gm/dl (10.1-14.3); Lymphocytes # (Auto) 0.8 K/mm3 (1.2-5.4); Lymphocytes % (Auto) 12.4 % (13.4-35.0); Mean Corpuscular HGB Conc 33 % (30-34); Mean Corpuscular Hemoglobin 31 pg (28-32); Mean Corpuscular Volume 92 fl (79-97); Monocytes # (Auto) 0.5 K/mm3 (0.0-0.8); Monocytes % (Auto) 7.8 % (0.0-7.3); Platelet Count 339 K/mm3 (140-440); Red Blood Count 2.72 M/mm3 (3.65-5.03); Red Cell Distribution Width 17.9 % (13.2-15.2)
[2017-04-29 07:30] LABS: Alanine Aminotransferase 48 units/L (7-56); Albumin 2.6 g/dL (3.9-5); BUN/Creatinine Ratio 24; Blood Urea Nitrogen 12 mg/dL (7-17); Calcium 8.3 mg/dL (8.4-10.2); Hemolysis Index 1
[2017-04-29] MEDS: ATIVAN IV SCH ×2 (07:32→15:29)
[2017-04-29] MEDS: PROTONIX IV SCH (10:40)
[2017-04-29] MEDS: MIRALAX 3350 PO SCH ×2 (10:40→10:52)
[2017-04-29] MEDS: LOVENOX SUB-Q SCH (10:41)
[2017-04-29] MEDS: DIFLUCAN 200 MG/100 ML BAG IV SCH (16:08)
--- NOTE | 2017-04-29 17:38 | Progress Note ---
Assessment and Plan 52 y.o. F with hx of sleeve gastrectomy and hiatal hernia repair, redo- hiatal hernia repair, and reduction of hiatal hernia presents with n/v : - EGD showed esophageal candidiasis and a less tortorous esophagus from previous EGD - Upper GI series showed delayed esophageal emptying and mild obstruction at GE junction. - Nausea and vomiting: resolved. Change to PO antiemetics today- zofran, reglan and ativan- change to PO - tolerating softs. encourage protein intake - Continue TPN for adequate nutrition. - Day 2 of 7 of diflucan for esophageal candidiasis - Upper extremities and lower extremity edema: r/o DVT = both negative - Hg 9-->7: HgB stabe at 7.6. 2/2 to dehydration and hemoconcentration. continue daily HgB checks - GI and DVT proph dispo: DC when tolerating PO intake and no vomiting with PO meds. Likely dc in 1 -2 days. Subjective Narrative: Pt doing well. She is tolerating small amounts of soft food and protein drinks during the day. Her spitting has improved Denies nausea or vomiting. Overall she is feeling better. afebrile Objective Vital Signs - 12hr 04/29/17 04/29/17 04/29/17 07:44 12:09 12:10 Temperature 98.5 F 98.5 F Pulse Rate 87 73 74 Respiratory 18 18 Rate Blood Pressure 111/75 118/63 Blood Pressure [Left] O2 Sat by Pulse 98 98 98 Oximetry 04/29/17 04/29/17 15:09 15:34 Temperature 99 F Pulse Rate 65 73 Respiratory 18 Rate Blood Pressure Blood Pressure 139/77 [Left] O2 Sat by Pulse 98 Oximetry - General physical appearance well developed, well nourished - Respiratory normal expansion, normal respiratory effort - Abdomen soft, not tender, bowel sounds normal, not distended, not masses, not rebound, not guarding, not rigid - Integumentary no rash, no growths - Neurologic normal coordination, normal sensation - Musculoskeletal normal posture - Psychiatric oriented to time, oriented to person, oriented to place, speech is normal - Labs 04/29/17 05:52 04/29/17 05:52 Diabetes panel 04/29/17 Range/Units 05:52 Sodium 139 (137-145) mmol/L Potassium 4.4 (3.6-5.0) mmol/L Chloride 102.7 (98-107) mmol/L Carbon Dioxide 24 (22-30) mmol/L BUN 12 (7-17) mg/dL Creatinine 0.5 L (0.7-1.2) mg/dL Glucose 119 H (65-100) mg/dL Calcium 8.3 L (8.4-10.2) mg/dL AST 18 (5-40) units/L ALT 48 (7-56) units/L Alkaline Phosphatase 86 (35-129) units/L Total Protein 5.5 L (6.3-8.2) g/dL Albumin 2.6 L (3.9-5) g/dL Calcium panel 04/29/17 Range/Units 05:52 Calcium 8.3 L (8.4-10.2) mg/dL Phosphorus 4.30 (2.5-4.5) mg/dL Albumin 2.6 L (3.9-5) g/dL Pituitary panel 04/29/17 Range/Units 05:52 Sodium 139 (137-145) mmol/L Potassium 4.4 (3.6-5.0) mmol/L Chloride 102.7 (98-107) mmol/L Carbon Dioxide 24 (22-30) mmol/L BUN 12 (7-17) mg/dL Creatinine 0.5 L (0.7-1.2) mg/dL Glucose 119 H (65-100) mg/dL Calcium 8.3 L (8.4-10.2) mg/dL Adrenal panel 04/29/17 Range/Units 05:52 Sodium 139 (137-145) mmol/L Potassium 4.4 (3.6-5.0) mmol/L Chloride 102.7 (98-107) mmol/L Carbon Dioxide 24 (22-30) mmol/L BUN 12 (7-17) mg/dL Creatinine 0.5 L (0.7-1.2) mg/dL Glucose 119 H (65-100) mg/dL Calcium 8.3 L (8.4-10.2) mg/dL Total Bilirubin 0.40 (0.1-1.2) mg/dL AST 18 (5-40) units/L ALT 48 (7-56) units/L Alkaline Phosphatase 86 (35-129) units/L Total Protein 5.5 L (6.3-8.2) g/dL Albumin 2.6 L (3.9-5) g/dL
[2017-04-29] MEDS ORDERED: TPN ADULT 2,016 ML IV SCH (20:00)
[2017-04-29] MEDS: ZOFRAN ODT PO SCH (20:48)
[2017-04-29] MEDS: REGLAN PO SCH (20:48)
[2017-04-29] MEDS: ATIVAN PO SCH (23:25)
[2017-04-30] MEDS: ZOFRAN ODT PO SCH ×5 (01:41→23:28)
[2017-04-30] MEDS: REGLAN PO SCH ×5 (01:41→23:28)
[2017-04-30] MEDS: DIFLUCAN 200 MG/100 ML BAG IV SCH ×2 (02:35→02:36)
[2017-04-30 04:32] LABS: Basophils # (Auto) 0.1 K/mm3 (0.0-0.1); Eosinophils # (Auto) 0.4 K/mm3 (0.0-0.4); Eosinophils % (Auto) 5.5 % (0.0-4.3); Hematocrit 25.2 % (30.3-42.9); Hemoglobin 8.4 gm/dl (10.1-14.3); Lymphocytes % (Auto) 15.1 % (13.4-35.0); Mean Corpuscular HGB Conc 33 % (30-34); Mean Corpuscular Hemoglobin 30 pg (28-32); Mean Corpuscular Volume 91 fl (79-97); Monocytes # (Auto) 0.7 K/mm3 (0.0-0.8); Monocytes % (Auto) 10.2 % (0.0-7.3); Platelet Count 293 K/mm3 (140-440); Red Blood Count 2.76 M/mm3 (3.65-5.03); Red Cell Distribution Width 18.3 % (13.2-15.2)
[2017-04-30 04:55] LABS: Alanine Aminotransferase 36 units/L (7-56); Albumin 2.3 g/dL (3.9-5); BUN/Creatinine Ratio 30; Blood Urea Nitrogen 12 mg/dL (7-17); Calcium 8.1 mg/dL (8.4-10.2); Hemolysis Index 1
[2017-04-30] MEDS: ATIVAN IV SCH (05:12)
[2017-04-30] MEDS: ZOFRAN IV SCH (05:12)
[2017-04-30] MEDS: ATIVAN PO SCH ×3 (06:05→23:28)
[2017-04-30] MEDS: CARAFATE PO SCH ×4 (06:05→23:28)
[2017-04-30] MEDS: PROTONIX PO SCH (09:10)
[2017-04-30] MEDS: LOVENOX SUB-Q SCH (09:10)
--- NOTE | 2017-04-30 14:19 | Progress Note ---
Assessment and Plan 52 y.o. F with hx of sleeve gastrectomy and hiatal hernia repair, redo- hiatal hernia repair, and reduction of hiatal hernia presents with n/v : - EGD showed esophageal candidiasis and a less tortorous esophagus from previous EGD - Upper GI series showed delayed esophageal emptying and mild obstruction at GE junction. - Nausea and vomiting: resolved. Change to PO antiemetics today- zofran, reglan and ativan- change to PO - tolerating softs. encourage protein intake - Continue TPN for adequate nutrition. - Day 3 of 14 of diflucan for esophageal candidiasis --> change to PO diflucan. If she is able to tolerate the PO diflucan likely dc in am - Upper extremities and lower extremity edema: r/o DVT = both negative - Hg 9-->7: HgB stabe at 7.6. 2/2 to dehydration and hemoconcentration. continue daily HgB checks - GI and DVT proph dispo: DC when tolerating PO intake and no vomiting with PO meds. DC tomorrow - will continue to need tpn for likely an additional week until she is able to tolerate enough PO to sustain her nutrition. Subjective Narrative: Pt feeling better. She is able to tolerate a protein shake yesterday and a few bites of food. She was able to take her medications by mouth. Her nausea has improved. She is still spitting up a little. She is ambulating well. She passed flatus. no bm. Her weakness is improving but she is still not at baseline. Objective Vital Signs - 12hr 04/30/17 04/30/17 04/30/17 04:36 07:39 08:11 Temperature 98.6 F 98.6 F Pulse Rate 65 74 80 Respiratory 16 18 Rate Blood Pressure 93/53 Blood Pressure 98/61 [Left] O2 Sat by Pulse 97 97 Oximetry 04/30/17 04/30/17 11:40 12:31 Temperature 98.1 F Pulse Rate 67 70 Respiratory 18 Rate Blood Pressure Blood Pressure 93/52 [Left] O2 Sat by Pulse 99 Oximetry - General physical appearance well developed, well nourished, no distress - Respiratory normal expansion, normal respiratory effort - Abdomen soft, not tender, bowel sounds normal, not distended, not rebound, not guarding - Integumentary no rash, no growths - Neurologic normal coordination, normal sensation - Musculoskeletal normal posture - Psychiatric oriented to time, oriented to person, oriented to place, speech is normal - Labs 04/30/17 04:10 04/30/17 04:10 Diabetes panel 04/30/17 Range/Units 04:10 Sodium 134 L (137-145) mmol/L Potassium 4.0 (3.6-5.0) mmol/L Chloride 99.0 (98-107) mmol/L Carbon Dioxide 27 (22-30) mmol/L BUN 12 (7-17) mg/dL Creatinine 0.4 L (0.7-1.2) mg/dL Glucose 107 H (65-100) mg/dL Calcium 8.1 L (8.4-10.2) mg/dL AST 11 (5-40) units/L ALT 36 (7-56) units/L Alkaline Phosphatase 78 (35-129) units/L Total Protein 5.5 L (6.3-8.2) g/dL Albumin 2.3 L (3.9-5) g/dL Calcium panel 04/30/17 Range/Units 04:10 Calcium 8.1 L (8.4-10.2) mg/dL Phosphorus 3.90 (2.5-4.5) mg/dL Albumin 2.3 L (3.9-5) g/dL Pituitary panel 04/30/17 Range/Units 04:10 Sodium 134 L (137-145) mmol/L Potassium 4.0 (3.6-5.0) mmol/L Chloride 99.0 (98-107) mmol/L Carbon Dioxide 27 (22-30) mmol/L BUN 12 (7-17) mg/dL Creatinine 0.4 L (0.7-1.2) mg/dL Glucose 107 H (65-100) mg/dL Calcium 8.1 L (8.4-10.2) mg/dL Adrenal panel 04/30/17 Range/Units 04:10 Sodium 134 L (137-145) mmol/L Potassium 4.0 (3.6-5.0) mmol/L Chloride 99.0 (98-107) mmol/L Carbon Dioxide 27 (22-30) mmol/L BUN 12 (7-17) mg/dL Creatinine 0.4 L (0.7-1.2) mg/dL Glucose 107 H (65-100) mg/dL Calcium 8.1 L (8.4-10.2) mg/dL Total Bilirubin 0.30 (0.1-1.2) mg/dL AST 11 (5-40) units/L ALT 36 (7-56) units/L Alkaline Phosphatase 78 (35-129) units/L Total Protein 5.5 L (6.3-8.2) g/dL Albumin 2.3 L (3.9-5) g/dL
[2017-04-30] MEDS: METAMUCIL PO SCH (15:00)
[2017-04-30] MEDS: DIFLUCAN PO SCH (18:49)
[2017-04-30] MEDS ORDERED: TPN ADULT 2,016 ML IV SCH (20:00)
[2017-04-30] MEDS ORDERED: INTRALIPID 20% 250 ML IV SCH (20:00)
[2017-05-01 05:20] LABS: Basophils # (Auto) 0.1 K/mm3 (0.0-0.1); Basophils % (Auto) 0.9 % (0.0-1.8); Eosinophils # (Auto) 0.3 K/mm3 (0.0-0.4); Eosinophils % (Auto) 5.3 % (0.0-4.3); Hematocrit 25.7 % (30.3-42.9); Hemoglobin 8.6 gm/dl (10.1-14.3); Lymphocytes % (Auto) 15.9 % (13.4-35.0); Mean Corpuscular HGB Conc 34 % (30-34); Mean Corpuscular Hemoglobin 31 pg (28-32); Mean Corpuscular Volume 93 fl (79-97); Monocytes # (Auto) 0.7 K/mm3 (0.0-0.8); Monocytes % (Auto) 10.9 % (0.0-7.3); Platelet Count 324 K/mm3 (140-440); Red Blood Count 2.78 M/mm3 (3.65-5.03)
[2017-05-01 05:28] LABS: Alanine Aminotransferase 28 units/L (7-56); Albumin 2.5 g/dL (3.9-5); BUN/Creatinine Ratio 35; Blood Urea Nitrogen 14 mg/dL (7-17); Calcium 8.3 mg/dL (8.4-10.2); Hemolysis Index 2
[2017-05-01] MEDS: REGLAN PO SCH ×2 (05:55→11:59)
[2017-05-01] MEDS: ZOFRAN ODT PO SCH ×2 (05:55→12:03)
[2017-05-01] MEDS: CARAFATE PO SCH ×2 (05:55→11:58)
[2017-05-01] MEDS: ATIVAN PO SCH ×2 (05:55→14:24)
[2017-05-01 07:47] VITALS: BP 98/56
[2017-05-01] MEDS: PROTONIX PO SCH (09:07)
[2017-05-01] MEDS: DIFLUCAN PO SCH (09:07)
[2017-05-01] MEDS: LOVENOX SUB-Q SCH (09:07)
--- NOTE | 2017-05-01 10:23 | Progress Note ---
Assessment and Plan 52 y.o. F with hx of sleeve gastrectomy and hiatal hernia repair, redo- hiatal hernia repair, and reduction of hiatal hernia presents with n/v : - EGD showed esophageal candidiasis and a less tortorous esophagus from previous EGD - Upper GI series showed delayed esophageal emptying and mild obstruction at GE junction. - Nausea and vomiting: resolved. Change to PO antiemetics today- zofran, reglan and ativan- change to PO - tolerating softs. encourage protein intake - Continue TPN for adequate nutrition. - Day 4 of 14 of diflucan for esophageal candidiasis --> changed to PO diflucan. - Upper extremities and lower extremity edema: r/o DVT = both negative - GI and DVT proph dispo: dc today. Will continue to need tpn at home since her po intake is not enough for proper nutrition. Will likely only need an additional week. Subjective Narrative: Pt feeling better. She is tolerating all of her PO meds. She is passing gas. She denies nausea or vomiting. +ambulation. Denies spitting or regurg. Objective Vital Signs - 12hr 04/30/17 05/01/17 05/01/17 23:43 03:59 07:43 Temperature 98.6 F 98.5 F 98.0 F Pulse Rate 87 72 81 Respiratory 20 20 18 Rate Blood Pressure 115/63 88/45 98/56 O2 Sat by Pulse 96 95 97 Oximetry - General physical appearance well developed, well nourished, no distress - Respiratory normal expansion, normal respiratory effort - Abdomen soft, not tender, bowel sounds normal - Integumentary no rash, no growths - Neurologic normal coordination, normal sensation - Psychiatric oriented to time, oriented to person, oriented to place, speech is normal - Labs 05/01/17 04:35 05/01/17 04:35 Diabetes panel 05/01/17 Range/Units 04:35 Sodium 135 L (137-145) mmol/L Potassium 4.2 (3.6-5.0) mmol/L Chloride 97.3 L (98-107) mmol/L Carbon Dioxide 26 (22-30) mmol/L BUN 14 (7-17) mg/dL Creatinine 0.4 L (0.7-1.2) mg/dL Glucose 106 H (65-100) mg/dL Calcium 8.3 L (8.4-10.2) mg/dL AST 10 (5-40) units/L ALT 28 (7-56) units/L Alkaline Phosphatase 73 (35-129) units/L Total Protein 5.8 L (6.3-8.2) g/dL Albumin 2.5 L (3.9-5) g/dL Calcium panel 05/01/17 Range/Units 04:35 Calcium 8.3 L (8.4-10.2) mg/dL Phosphorus 3.80 (2.5-4.5) mg/dL Albumin 2.5 L (3.9-5) g/dL Pituitary panel 05/01/17 Range/Units 04:35 Sodium 135 L (137-145) mmol/L Potassium 4.2 (3.6-5.0) mmol/L Chloride 97.3 L (98-107) mmol/L Carbon Dioxide 26 (22-30) mmol/L BUN 14 (7-17) mg/dL Creatinine 0.4 L (0.7-1.2) mg/dL Glucose 106 H (65-100) mg/dL Calcium 8.3 L (8.4-10.2) mg/dL Adrenal panel 05/01/17 Range/Units 04:35 Sodium 135 L (137-145) mmol/L Potassium 4.2 (3.6-5.0) mmol/L Chloride 97.3 L (98-107) mmol/L Carbon Dioxide 26 (22-30) mmol/L BUN 14 (7-17) mg/dL Creatinine 0.4 L (0.7-1.2) mg/dL Glucose 106 H (65-100) mg/dL Calcium 8.3 L (8.4-10.2) mg/dL Total Bilirubin 0.20 (0.1-1.2) mg/dL AST 10 (5-40) units/L ALT 28 (7-56) units/L Alkaline Phosphatase 73 (35-129) units/L Total Protein 5.8 L (6.3-8.2) g/dL Albumin 2.5 L (3.9-5) g/dL
--- NOTE | 2017-05-01 10:23 | Discharge Summary ---
Providers - Providers Date of Admission: 04/24/17 14:36 Attending physician: YOLIS KENNEDY 04/24/17 14:43 Consult to Dietitian/Nutrition [CONS] Routine Physician Instructions: Reason For Exam: tpn Reason for Consult: Write/Manage TPN/PPN Primary care physician: YESSENIA RODRIGUES Hospitalization Condition: Stable Procedures: egd Hospital course: 52 y.o. F with hx of sleeve gastrectomy and hiatal hernia repair, redo- hiatal hernia repair, and reduction of hiatal hernia presented with n/v. She was recently discharged from hospital. ONce she was admitted she was hydrated and started on iv antiemetics. She had an EGD that showed esophageal candidiasis and a less tortorous esophagus from previous EGD. An Upper GI series showed delayed esophageal emptying and mild obstruction at GE junction. She was started on IV diflucan and will be discharged on diflucan to finish a 14 day course. Her Nausea and vomiting: resolved. She was Changed to PO antiemetics prior to discharge zofran, reglan and ativan. Prior to discharge she was tolerating one protien drink a day and a couple bites of solid soft food. She is still not taking in enough to maintain her nutrition so she will be discharged to continued on her home tpn. Disposition: DC- TO HOME OR SELFCARE Core Measure Documentation - Palliative Care Palliative Care/ Comfort Measures: Not Applicable - Core Measures Any of the following diagnoses?: none Exam - Physical Exam Narrative exam: no change from prior - Constitutional Vitals: Temp Pulse Resp BP Pulse Ox 98.0 F 81 18 98/56 97 05/01/17 07:43 05/01/17 07:43 05/01/17 07:43 05/01/17 07:43 05/01/17 07:43 Plan Activity: other (as tolerated ) Diet: other (soft food. keep a food journal and bring to your appointment. Call office to make an appointment ) Follow up with: YESSENIA RODRIGUES MD [Primary Care Provider] - 7 Days
[2017-05-01] MEDS: METAMUCIL PO SCH (12:03)
[2017-05-01] MEDS ORDERED: TPN ADULT 2,016 ML IV SCH (20:00)
== END 2017-05-01 14:35 | disposition home health service (06) | DRG 368 ==
LOC: ED 10:00 → 3A 14:36 → 3B-SURG 15:02
PROVIDERS: ADMIT Specialist; ATTEND Specialist
PROC: 0DJ08ZZ Inspection of Upper Intestinal Tract, Via Natural or Artificial Opening Endoscopic (ICD-10-PCS; principal; 2017-04-27)
DX: B37.81 Candidal esophagitis (principal); E43 Unspecified severe protein-calorie malnutrition; I95.9 Hypotension, unspecified; E66.9 Obesity, unspecified; K44.0 Diaphragmatic hernia with obstruction, without gangrene; K21.9 Gastro-esophageal reflux disease without esophagitis; G47.30 Sleep apnea, unspecified; E86.0 Dehydration; Z68.30 Body mass index [BMI] 30.0-30.9, adult; Z90.49 Acquired absence of other specified parts of digestive tract; Z88.5 Allergy status to narcotic agent; Z79.899 Other long term (current) drug therapy; Z98.84 Bariatric surgery status
CPT/HCPCS: 36415; 74022; 74247; 80048; 80053; 81001; 82962; 83690; 83735; 84100; 84134; 85025; 85610; 85730; 87086; C9113; J1100; J1450; J1650; J2060; J2405; J2704; J2765; J7030; J7120; Q0162

== ENCOUNTER 2017-05-08 11:40 | Inpatient (IN) | payer OTHER ==
[2017-05-08] MEDS ORDERED: MYLICON PO PRN (12:19)
[2017-05-08] MEDS ORDERED: APRESOLINE IV PRN (12:19)
[2017-05-08] MEDS: ZOFRAN IV SCH ×2 (15:07→20:56)
[2017-05-08] MEDS: LACTATED RINGERS 1,000 ML IV SCH ×2 (15:07→23:18)
[2017-05-08 16:44] LABS: Alanine Aminotransferase 61 units/L (7-56); Albumin 3.3 g/dL (3.9-5); BUN/Creatinine Ratio 52; Blood Urea Nitrogen 26 mg/dL (7-17); Calcium 9.1 mg/dL (8.4-10.2); Hemolysis Index 2
[2017-05-08 16:46] LABS: Basophils # (Auto) 0.1 K/mm3 (0.0-0.1); Basophils % (Auto) 0.8 % (0.0-1.8); Eosinophils % (Auto) 0.7 % (0.0-4.3); Hematocrit 31.9 % (30.3-42.9); Hemoglobin 10.5 gm/dl (10.1-14.3); Lymphocytes # (Auto) 0.9 K/mm3 (1.2-5.4); Lymphocytes % (Auto) 14.3 % (13.4-35.0); Mean Corpuscular HGB Conc 33 % (30-34); Mean Corpuscular Hemoglobin 31 pg (28-32); Mean Corpuscular Volume 93 fl (79-97); Monocytes # (Auto) 0.7 K/mm3 (0.0-0.8); Monocytes % (Auto) 11.3 % (0.0-7.3); Platelet Count 359 K/mm3 (140-440); Red Blood Count 3.44 M/mm3 (3.65-5.03); Red Cell Distribution Width 17.4 % (13.2-15.2)
[2017-05-08] MEDS: ATIVAN IV SCH ×2 (16:59→23:09)
[2017-05-08] MEDS: REGLAN IV SCH ×2 (17:03→21:46)
[2017-05-08] MEDS: TORADOL IV SCH ×2 (17:56→22:00)
[2017-05-08] MEDS: DIFLUCAN 200 MG/100 ML BAG IV SCH (18:46)
[2017-05-09] MEDS: TORADOL IV SCH ×5 (04:18→22:23)
[2017-05-09] MEDS: REGLAN IV SCH ×4 (04:18→22:24)
[2017-05-09] MEDS: ZOFRAN IV SCH ×3 (06:19→22:22)
[2017-05-09] MEDS: LACTATED RINGERS 1,000 ML IV SCH ×3 (06:19→12:49)
[2017-05-09] MEDS ORDERED: HURRICAINE ONE 20% TOPICAL SPRAY MM PRN (06:22)
[2017-05-09 08:18] LABS: Eosinophils # (Auto) 0.1 K/mm3 (0.0-0.4); Eosinophils % (Auto) 2.5 % (0.0-4.3); Hematocrit 25.2 % (30.3-42.9); Hemoglobin 8.4 gm/dl (10.1-14.3); Lymphocytes % (Auto) 22.2 % (13.4-35.0); Mean Corpuscular HGB Conc 33 % (30-34); Mean Corpuscular Hemoglobin 31 pg (28-32); Mean Corpuscular Volume 93 fl (79-97); Monocytes # (Auto) 0.7 K/mm3 (0.0-0.8); Monocytes % (Auto) 13.9 % (0.0-7.3); Platelet Count 293 K/mm3 (140-440); Red Blood Count 2.71 M/mm3 (3.65-5.03); Red Cell Distribution Width 17.7 % (13.2-15.2)
[2017-05-09 08:48] LABS: Alanine Aminotransferase 49 units/L (7-56); Albumin 2.7 g/dL (3.9-5); BUN/Creatinine Ratio 37; Blood Urea Nitrogen 22 mg/dL (7-17); Calcium 8.4 mg/dL (8.4-10.2); Hemolysis Index 0
--- NOTE | 2017-05-09 09:17 | History and Physical Report ---
History of Present Illness Date of admission: 05/08/17 14:05 History of present illness: 52 y.o. F with hx of sleeve gastrectomy and hiatal hernia repair, redo- hiatal hernia repair, and reduction of hiatal hernia presented with n/v. She was recently discharged from hospital. At time of discharge she was tolerating liquids and solid food and po meds. She was not vomiting and had little spit up at time of discharge. 3 days after discharge she started to have more spit up and started vomiting. She feels the spitting and vomiting was caused by the lipids that were running via picc line at home. She was told to hold the lipids and just do the tpn. She continued to nausea and spitting with vomiting despite no lipids. She could not tolerate her medications either. She was seen in the office 05/08 for weakness and vomiting. She was directly admitted from the office to the ER. She denies abdominal pain. She is passing flatus and having bms. She has not completed her 14day course of dilfucan for esophageal canidiasis. She is also complaining of vaginal discharge. She discharge dysuria or vaginal pain. 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 ) Social history: no significant social history Family history: no significant family history Medications and Allergies Allergies Allergy/AdvReac Type Severity Reaction Status Date / Time hydromorphone [From Dilaudid] Allergy Nausea Unverified 05/08/17 14:36 morphine AdvReac Vomiting Verified 04/18/17 08:22 Home Medications Medication Instructions Recorded Confirmed Last Taken Type Magnesium Citrate 295 ml PO ONCE #1 solution 02/11/17 04/15/17 Unknown Rx Ondansetron [Zofran TAB] 4 mg PO Q8HR PRN #15 tablet 02/11/17 04/15/17 Unknown Rx Active Meds: Active Medications Benzocaine (Hurricaine One 20% Topical [place]) 1 spray MM Q4H PRN PRN Reason: Throat Pain Enoxaparin Sodium (Lovenox) 40 mg SUB-Q QDAY [facility] Hydralazine HCl (Apresoline) 10 mg IV Q6H PRN PRN Reason: SBP > 150 Lactated Ringer's (Lactated Ringers) 1,000 mls @ 150 mls/hr IV DIRECT [facility] Last Admin: 05/09/17 06:20 Dose: 150 mls/hr Fluconazole (Diflucan) 200 mg in 100 mls @ 100 mls/hr IV Q24H [facility] PRN Reason: Protocol Last Admin: 05/08/17 18:46 Dose: 100 mls/hr Ketorolac Tromethamine (Toradol) 30 mg IV Q6H [facility] Stop: 05/10/17 15:59 Last Admin: 05/09/17 06:19 Dose: 30 mg Lorazepam (Ativan) 0.5 mg IV Q8H [facility] Last Admin: 05/08/17 23:09 Dose: 0.5 mg Metoclopramide HCl (Reglan) 10 mg IV Q6H [facility] Last Admin: 05/09/17 04:18 Dose: Not Given Ondansetron HCl (Zofran) 4 mg IV Q8H [facility] Last Admin: 05/09/17 06:19 Dose: 4 mg Simethicone (Mylicon) 80 mg PO Q6H PRN PRN Reason: Gas pain Review of Systems All systems: negative - Cardiovascular no chest pain, no orthopnea, no palpitations - Respiratory no cough, no cough with sputum, no excessive sputum, no hemoptysis - Gastrointestinal nausea, vomiting, no abdominal pain, no diarrhea, no constipation - Genitourinary Genitourinary: no dyspareunia, no dysmenorrhea, no pelvic pain, no menorrhagia, no dysuria Menstruation: other (vaginal discharge ) - Muskuloskeletal no neck stiffness, no neck pain, no arm numbness/tingling, no low back pain, no shooting leg pain - Integumentary no pruritis, no redness, no sores, no wounds - Neurological weakness, no head injury, no transient paralysis, no paralysis, no parathesias - Psychiatric depression, no anxiety, no memory loss, no change in sleep habits, no insomnia - Endocrine no cold intolerance, no polyphagia, no excessive thirst, no polyuria Exam Vital Signs Temp Pulse Resp BP Pulse Ox 99.4 F 89 18 92/74 100 05/08/17 16:04 05/08/17 16:04 05/08/17 16:04 05/08/17 16:04 05/08/17 16:04 - General physical appearance Positive: well developed, no distress - Respiratory Positive: normal expansion, normal respiratory effort - Cardiovascular Rhythm: regular - Extremities Extremities: no ischemia, pulses intact - Abdomen Abdomen: Present: soft, tender, bowel sounds normal - Integumentary no rash, no growths, no abnormal pigmentation - Neurologic Neurologic: alert and oriented to time, place and person, motor strength and sensation are grossly intact - Musculoskeletal normal posture - Psychiatric Psychiatric: appropriate mood/affect, intact judgment & insight Results - Labs 05/09/17 07:45 05/09/17 07:45 Abnormal lab results 05/08/17 05/08/17 05/09/17 Range/Units 15:45 15:45 07:45 RBC 3.44 L 2.71 L (3.65-5.03) M/mm3 Hgb 8.4 L (10.1-14.3) gm/dl Hct 25.2 L D (30.3-42.9) % RDW 17.4 H 17.7 H (13.2-15.2) % [place] % (Auto) 11.3 H 13.9 H (0.0-7.3) % Lymph # 0.9 L 1.0 L (1.2-5.4) K/mm3 Seg Neutrophils % 72.9 H (40.0-70.0) % BUN 26 H (7-17) mg/dL Creatinine 0.5 L (0.7-1.2) mg/dL Glucose (65-100) mg/dL Phosphorus 2.10 L (2.5-4.5) mg/dL AST 41 H (5-40) units/L ALT 61 H (7-56) units/L Total Protein (6.3-8.2) g/dL Albumin 3.3 L (3.9-5) g/dL Prealbumin 0.140 L (0.200-0.400) g/L 05/09/17 Range/Units 07:45 RBC (3.65-5.03) M/mm3 Hgb (10.1-14.3) gm/dl Hct (30.3-42.9) % RDW (13.2-15.2) % [place] % (Auto) (0.0-7.3) % Lymph # (1.2-5.4) K/mm3 Seg Neutrophils % (40.0-70.0) % BUN 22 H (7-17) mg/dL Creatinine 0.6 L (0.7-1.2) mg/dL Glucose 104 H (65-100) mg/dL Phosphorus (2.5-4.5) mg/dL AST (5-40) units/L ALT (7-56) units/L Total Protein 5.9 L (6.3-8.2) g/dL Albumin 2.7 L (3.9-5) g/dL Prealbumin (0.200-0.400) g/L Diabetes panel 05/08/17 05/09/17 Range/Units 15:45 07:45 Sodium 138 141 (137-145) mmol/L Potassium 4.4 4.1 (3.6-5.0) mmol/L Chloride 99.7 103.7 (98-107) mmol/L Carbon Dioxide 23 25 (22-30) mmol/L BUN 26 H 22 H (7-17) mg/dL Creatinine 0.5 L 0.6 L (0.7-1.2) mg/dL Glucose 94 104 H (65-100) mg/dL Calcium 9.1 8.4 (8.4-10.2) mg/dL AST 41 H 38 (5-40) units/L ALT 61 H 49 (7-56) units/L Alkaline Phosphatase 97 78 (35-129) units/L Total Protein 6.8 5.9 L (6.3-8.2) g/dL Albumin 3.3 L 2.7 L (3.9-5) g/dL Calcium panel 05/08/17 05/09/17 Range/Units 15:45 07:45 Calcium 9.1 8.4 (8.4-10.2) mg/dL Phosphorus 2.10 L (2.5-4.5) mg/dL Albumin 3.3 L 2.7 L (3.9-5) g/dL Pituitary panel 05/08/17 05/09/17 Range/Units 15:45 07:45 Sodium 138 141 (137-145) mmol/L Potassium 4.4 4.1 (3.6-5.0) mmol/L Chloride 99.7 103.7 (98-107) mmol/L Carbon Dioxide 23 25 (22-30) mmol/L BUN 26 H 22 H (7-17) mg/dL Creatinine 0.5 L 0.6 L (0.7-1.2) mg/dL Glucose 94 104 H (65-100) mg/dL Calcium 9.1 8.4 (8.4-10.2) mg/dL Adrenal panel 05/08/17 05/09/17 Range/Units 15:45 07:45 Sodium 138 141 (137-145) mmol/L Potassium 4.4 4.1 (3.6-5.0) mmol/L Chloride 99.7 103.7 (98-107) mmol/L Carbon Dioxide 23 25 (22-30) mmol/L BUN 26 H 22 H (7-17) mg/dL Creatinine 0.5 L 0.6 L (0.7-1.2) mg/dL Glucose 94 104 H (65-100) mg/dL Calcium 9.1 8.4 (8.4-10.2) mg/dL Total Bilirubin 0.80 0.90 (0.1-1.2) mg/dL AST 41 H 38 (5-40) units/L ALT 61 H 49 (7-56) units/L Alkaline Phosphatase 97 78 (35-129) units/L Total Protein 6.8 5.9 L (6.3-8.2) g/dL Albumin 3.3 L 2.7 L (3.9-5) g/dL Assessment and Plan 52 y.o. F presented to the hospital with nausea and vomiting s/p hiatal hernia repair and laparoscopic sleeve gastrectomy, esophagel and sleeve dilation: - start clear liquids today. If tolerate clears, will do upper gi series tomorrow to compare to previous. f/u UGI series- egd tomorrow, possible dilation -caninda esophagitis - continue diflucan IV for 1 week - nausea control: ativan, zofran, reglan, phenergren -Nutrition: TPN- nutrition consulted. vaginal discharge - CAN PILER consulted. -GI and dvt prophylaxis
[2017-05-09] MEDS: ATIVAN IV SCH ×2 (09:43→17:34)
[2017-05-09] MEDS: LOVENOX SUB-Q SCH (09:43)
[2017-05-09] MEDS: CARAFATE PO SCH ×2 (12:28→17:33)
[2017-05-09] MEDS: PROTONIX IV SCH ×2 (12:45→22:24)
--- NOTE | 2017-05-09 15:41 | Consultation ---
History of Present Illness - Reason for Consult Consult date: 05/09/17 - History of Present Illness Left message for provider Dr Booth to call me on the phone and I gave my phone number to the nurse taking care of the patient and I later got a message that Dr Booth called the [facility] substation manager to "tell me I had to come see the patient" Vaginal discharge is not a hospital consult. Please refer patient to our office for outpatient evaluation when she is discharged from the hospital. I attempted to call Dr Owen at 3:31pm to explain this but I was unable to penetrate the office answering machine, despite indicating that I was a physician. 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 ) Social history: no significant social history Family history: no significant family history Medications and Allergies Allergies Allergy/AdvReac Type Severity Reaction Status Date / Time hydromorphone [From Dilaudid] Allergy Nausea Unverified 05/08/17 14:36 morphine AdvReac Vomiting Verified 04/18/17 08:22 Home Medications Medication Instructions Recorded Confirmed Last Taken Type Magnesium Citrate 295 ml PO ONCE #1 solution 02/11/17 04/15/17 Unknown Rx Ondansetron [Zofran TAB] 4 mg PO Q8HR PRN #15 tablet 02/11/17 04/15/17 Unknown Rx Active Meds: Active Medications Benzocaine (Hurricaine One 20% Topical [place]) 1 spray MM Q4H PRN PRN Reason: Throat Pain Last Admin: 05/09/17 12:45 Dose: 1 spray Enoxaparin Sodium (Lovenox) 40 mg SUB-Q QDAY [facility] Last Admin: 05/09/17 09:43 Dose: 40 mg Hydralazine HCl (Apresoline) 10 mg IV Q6H PRN PRN Reason: SBP > 150 Lactated Ringer's (Lactated Ringers) 1,000 mls @ 150 mls/hr IV DIRECT [facility] Stop: 05/09/17 21:00 Last Admin: 05/09/17 12:49 Dose: 150 mls/hr Fluconazole (Diflucan) 200 mg in 100 mls @ 100 mls/hr IV Q24H [facility] PRN Reason: Protocol Last Admin: 05/08/17 18:46 Dose: 100 mls/hr Fat Emulsion Intravenous (Intralipid 20%) 250 mls @ 21 mls/hr IV DAILY@1999 [facility] Stop: 05/10/17 08:00 Amino Acids/Electrolytes/Dextrose (Tpn Adult) 2,016 mls @ 84 mls/hr IV DAILY@ 1999 [facility] PRN Reason: Protocol Stop: 05/10/17 19:59 Ketorolac Tromethamine (Toradol) 30 mg IV Q6H [facility] Stop: 05/10/17 15:59 Last Admin: 05/09/17 09:43 Dose: 30 mg Lorazepam (Ativan) 0.5 mg IV Q8H [facility] Last Admin: 05/09/17 09:43 Dose: 0.5 mg Metoclopramide HCl (Reglan) 10 mg IV Q6H [facility] Last Admin: 05/09/17 09:43 Dose: 10 mg Ondansetron HCl (Zofran) 4 mg IV Q8H [facility] Last Admin: 05/09/17 12:45 Dose: 4 mg Pantoprazole Sodium (Protonix) 40 mg IV BID [facility] Last Admin: 05/09/17 12:45 Dose: 40 mg Simethicone (Mylicon) 80 mg PO Q6H PRN PRN Reason: Gas pain Sucralfate (Carafate) 1 gm PO Q6HR [facility] Last Admin: 05/09/17 12:28 Dose: 1 gm Exam - Constitutional Vitals: Temp Pulse Resp BP Pulse Ox 98.6 F 79 20 92/46 95 05/09/17 08:15 05/09/17 08:15 05/09/17 08:15 05/09/17 08:15 05/09/17 09:04 Results - Labs CBC & Chem 7: 05/09/17 07:45 05/09/17 07:45 Labs: Abnormal lab results 05/08/17 05/08/17 05/09/17 Range/Units 15:45 15:45 07:45 RBC 3.44 L 2.71 L (3.65-5.03) M/mm3 Hgb 8.4 L (10.1-14.3) gm/dl Hct 25.2 L D (30.3-42.9) % RDW 17.4 H 17.7 H (13.2-15.2) % [place] % (Auto) 11.3 H 13.9 H (0.0-7.3) % Lymph # 0.9 L 1.0 L (1.2-5.4) K/mm3 Seg Neutrophils % 72.9 H (40.0-70.0) % BUN 26 H (7-17) mg/dL Creatinine 0.5 L (0.7-1.2) mg/dL Glucose (65-100) mg/dL Phosphorus 2.10 L (2.5-4.5) mg/dL AST 41 H (5-40) units/L ALT 61 H (7-56) units/L Total Protein (6.3-8.2) g/dL Albumin 3.3 L (3.9-5) g/dL Prealbumin 0.140 L (0.200-0.400) g/L 05/09/17 Range/Units 07:45 RBC (3.65-5.03) M/mm3 Hgb (10.1-14.3) gm/dl Hct (30.3-42.9) % RDW (13.2-15.2) % [place] % (Auto) (0.0-7.3) % Lymph # (1.2-5.4) K/mm3 Seg Neutrophils % (40.0-70.0) % BUN 22 H (7-17) mg/dL Creatinine 0.6 L (0.7-1.2) mg/dL Glucose 104 H (65-100) mg/dL Phosphorus (2.5-4.5) mg/dL AST (5-40) units/L ALT (7-56) units/L Total Protein 5.9 L (6.3-8.2) g/dL Albumin 2.7 L (3.9-5) g/dL Prealbumin (0.200-0.400) g/L
[2017-05-09] MEDS: DIFLUCAN 200 MG/100 ML BAG IV SCH (17:41)
[2017-05-09] MEDS ORDERED: INTRALIPID 20% 250 ML IV SCH (20:00)
[2017-05-09] MEDS ORDERED: TPN ADULT 2,016 ML IV SCH (20:00)
[2017-05-10] MEDS: CARAFATE PO SCH ×5 (00:05→23:18)
[2017-05-10] MEDS: ATIVAN IV SCH ×3 (01:02→17:50)
[2017-05-10] MEDS: REGLAN IV SCH ×4 (04:24→22:50)
[2017-05-10] MEDS: TORADOL IV SCH ×2 (04:29→09:56)
[2017-05-10] MEDS: ZOFRAN IV SCH ×3 (06:09→23:01)
[2017-05-10 07:38] LABS: Basophils # (Auto) 0.1 K/mm3 (0.0-0.1); Basophils % (Auto) 1.3 % (0.0-1.8); Eosinophils # (Auto) 0.2 K/mm3 (0.0-0.4); Eosinophils % (Auto) 4.2 % (0.0-4.3); Hematocrit 26.3 % (30.3-42.9); Hemoglobin 8.6 gm/dl (10.1-14.3); Lymphocytes # (Auto) 0.8 K/mm3 (1.2-5.4); Lymphocytes % (Auto) 17.5 % (13.4-35.0); Mean Corpuscular HGB Conc 33 % (30-34); Mean Corpuscular Hemoglobin 31 pg (28-32); Mean Corpuscular Volume 93 fl (79-97); Monocytes # (Auto) 0.5 K/mm3 (0.0-0.8); Monocytes % (Auto) 10.2 % (0.0-7.3); Platelet Count 302 K/mm3 (140-440); Red Blood Count 2.81 M/mm3 (3.65-5.03); Red Cell Distribution Width 17.4 % (13.2-15.2)
[2017-05-10 07:59] LABS: BUN/Creatinine Ratio 32; Blood Urea Nitrogen 19 mg/dL (7-17); Calcium 8.4 mg/dL (8.4-10.2); Hemolysis Index 8
--- NOTE | 2017-05-10 09:50 | Progress Note ---
Assessment and Plan 52 y.o. F presented to the hospital with nausea and vomiting s/p hiatal hernia repair and laparoscopic sleeve gastrectomy, esophagel and sleeve dilation: - clear liquids today. If tolerate clears, will do upper gi series tomorrow to compare to previous. f/u UGI series- today -caninda esophagitis - continue diflucan IV for 1 week - nausea control: ativan, zofran, reglan, phenergren -Nutrition: TPN- nutrition consulted. vaginal discharge - GEOMETRY TUTOR consulted. will follow up -GI and dvt prophylaxis Subjective Narrative: Pt is feeling better. She is longer vomiting and she is tolerating clears. She is passing flatus. She denies abdominal pain . Her throat is feeling better. she is ambulating. We discussed any possible home stresses that could be adding to the pt's vomiting. She denies any stress at home. Her is in the army and is currently overseas. She lives at home with 3 children. The oldest child who is 21 years old is helping with his younger siblings. afebrile Objective Vital Signs - 12hr 05/09/17 05/09/17 05/09/17 22:23 23:09 23:39 Temperature 98.7 F Pulse Rate 82 Respiratory 20 18 Rate Respiratory 20 Rate [Medial Abdomen] Blood Pressure 87/44 O2 Sat by Pulse 97 Oximetry 05/10/17 05/10/17 05/10/17 03:03 04:29 07:49 Temperature 99.0 F Pulse Rate 82 Respiratory 20 20 20 Rate Respiratory Rate [Medial Abdomen] Blood Pressure 112/72 O2 Sat by Pulse 99 98 Oximetry - General physical appearance well developed, well nourished, no distress - Respiratory normal expansion, normal respiratory effort - Abdomen soft, not tender, bowel sounds normal, not rebound, not guarding - Integumentary no rash, no growths - Neurologic normal coordination, normal sensation - Musculoskeletal normal posture - Psychiatric oriented to time, oriented to person, oriented to place - Labs 05/10/17 07:00 05/10/17 07:00 Diabetes panel 05/10/17 Range/Units 07:00 Sodium 137 (137-145) mmol/L Potassium 4.2 (3.6-5.0) mmol/L Chloride 100.4 (98-107) mmol/L Carbon Dioxide 24 (22-30) mmol/L BUN 19 H (7-17) mg/dL Creatinine 0.6 L (0.7-1.2) mg/dL Glucose 109 H (65-100) mg/dL Calcium 8.4 (8.4-10.2) mg/dL Calcium panel 05/10/17 Range/Units 07:00 Calcium 8.4 (8.4-10.2) mg/dL Phosphorus 4.20 (2.5-4.5) mg/dL Pituitary panel 05/10/17 Range/Units 07:00 Sodium 137 (137-145) mmol/L Potassium 4.2 (3.6-5.0) mmol/L Chloride 100.4 (98-107) mmol/L Carbon Dioxide 24 (22-30) mmol/L BUN 19 H (7-17) mg/dL Creatinine 0.6 L (0.7-1.2) mg/dL Glucose 109 H (65-100) mg/dL Calcium 8.4 (8.4-10.2) mg/dL Adrenal panel 05/10/17 Range/Units 07:00 Sodium 137 (137-145) mmol/L Potassium 4.2 (3.6-5.0) mmol/L Chloride 100.4 (98-107) mmol/L Carbon Dioxide 24 (22-30) mmol/L BUN 19 H (7-17) mg/dL Creatinine 0.6 L (0.7-1.2) mg/dL Glucose 109 H (65-100) mg/dL Calcium 8.4 (8.4-10.2) mg/dL
[2017-05-10] MEDS: LOVENOX SUB-Q SCH (09:55)
[2017-05-10] MEDS: PROTONIX IV SCH ×2 (09:56→22:54)
--- NOTE | 2017-05-10 15:03 | Fluoroscopy Report ---
Upper GI series. History: Persistent nausea and vomiting status post gastric sleeve procedure. Findings: In the distal esophagus, along the left lateral margin, there is slight contour deformity with projection of barium directed laterally. There is slight delay in passage of the barium distal to this point. This is best seen in the standing position. Extensive gastroesophageal reflux was present during the study. Postoperative changes in the stomach appear normal. The stomach empties into the duodenum promptly. Impression: Possible ulceration in the distal esophagus. Extensive gastroesophageal reflux was present. Endoscopic correlation is recommended.
[2017-05-10] MEDS: DIFLUCAN 200 MG/100 ML BAG IV SCH (17:29)
[2017-05-10] MEDS ORDERED: TPN ADULT 2,016 ML IV SCH (20:00)
[2017-05-11] MEDS: ATIVAN IV SCH ×3 (01:01→17:15)
[2017-05-11] MEDS: REGLAN IV SCH ×3 (03:50→17:09)
[2017-05-11] MEDS: ZOFRAN IV SCH ×2 (06:18→13:43)
[2017-05-11] MEDS: CARAFATE PO SCH ×4 (06:18→17:09)
[2017-05-11 06:38] LABS: BUN/Creatinine Ratio 23; Blood Urea Nitrogen 16 mg/dL (7-17); Calcium 7.9 mg/dL (8.4-10.2); Hemolysis Index 0
[2017-05-11] MEDS: LOVENOX SUB-Q SCH (10:37)
[2017-05-11] MEDS: PROTONIX IV SCH (10:37)
--- NOTE | 2017-05-11 11:33 | Progress Note ---
Assessment and Plan 52 y.o. F presented to the hospital with nausea and vomiting s/p hiatal hernia repair and laparoscopic sleeve gastrectomy, esophagel and sleeve dilation: - UGI series: similar to previous. start fulls, with boost strawberry - sit up for 2 hrs after eating or drinking and no po intake 2 hr prior to laying down for sleep/rest. NO EGD today -caninda esophagitis - continue diflucan IV for 1 week - nausea control: ativan, zofran, reglan, phenergren -Nutrition: TPN- nutrition consulted.- lipids will be held when the pt is for dc as they are concern for causing nausea and vomiting. vaginal discharge - QUALITY CONTROL TESTER consulted. will follow up haritha as outpt -GI and dvt prophylaxis Subjective Narrative: Pt feeling better today. She had spitting yesterday after the upper gi series but did not vomiting. She states when she is at home she usually has vomiting in the morning when she wakes up. today, she denies nausea or vomiting. She is spitting up white/clear fluid but less then prior. She is passing flatus. + ambulation. Denies chest pain. epigastric discomfort Objective Vital Signs - 12hr 05/11/17 07:31 Temperature 99.1 F Pulse Rate 89 Respiratory 20 Rate Blood Pressure 97/60 O2 Sat by Pulse 96 Oximetry - General physical appearance well developed, well nourished, no distress - Respiratory normal expansion, normal respiratory effort - Abdomen soft, other (minimal tenderness epigastric area. no rebound no guarding ) - Integumentary no rash, no growths, no abnormal pigmentation - Neurologic normal coordination, normal sensation - Musculoskeletal normal posture - Psychiatric oriented to time, oriented to person, oriented to place - Labs 05/10/17 07:00 05/11/17 Unknown Diabetes panel 05/11/17 Range/Units Unknown Sodium 135 L (137-145) mmol/L Potassium 4.1 (3.6-5.0) mmol/L Chloride 97.6 L (98-107) mmol/L Carbon Dioxide 26 (22-30) mmol/L BUN 16 (7-17) mg/dL Creatinine 0.7 (0.7-1.2) mg/dL Glucose 100 (65-100) mg/dL Calcium 7.9 L (8.4-10.2) mg/dL Calcium panel 05/11/17 Range/Units Unknown Calcium 7.9 L (8.4-10.2) mg/dL Phosphorus 3.90 (2.5-4.5) mg/dL Pituitary panel 05/11/17 Range/Units Unknown Sodium 135 L (137-145) mmol/L Potassium 4.1 (3.6-5.0) mmol/L Chloride 97.6 L (98-107) mmol/L Carbon Dioxide 26 (22-30) mmol/L BUN 16 (7-17) mg/dL Creatinine 0.7 (0.7-1.2) mg/dL Glucose 100 (65-100) mg/dL Calcium 7.9 L (8.4-10.2) mg/dL Adrenal panel 05/11/17 Range/Units Unknown Sodium 135 L (137-145) mmol/L Potassium 4.1 (3.6-5.0) mmol/L Chloride 97.6 L (98-107) mmol/L Carbon Dioxide 26 (22-30) mmol/L BUN 16 (7-17) mg/dL Creatinine 0.7 (0.7-1.2) mg/dL Glucose 100 (65-100) mg/dL Calcium 7.9 L (8.4-10.2) mg/dL
[2017-05-11] MEDS ORDERED: MAGNESIUM SULFATE 1 GM in NACL 0.9% 50 ML IV ONE (14:00)
[2017-05-11] MEDS: DIFLUCAN 200 MG/100 ML BAG IV SCH (17:09)
[2017-05-11] MEDS ORDERED: TPN ADULT IV SCH (20:00)
[2017-05-11] MEDS ORDERED: INTRALIPID 20% 250 ML IV SCH (20:00)
[2017-05-12] MEDS: REGLAN IV SCH ×4 (00:30→18:25)
[2017-05-12] MEDS: PROTONIX IV SCH ×2 (00:31→09:55)
[2017-05-12] MEDS: ZOFRAN IV SCH ×3 (00:31→17:50)
[2017-05-12] MEDS: CARAFATE PO SCH ×4 (01:31→17:44)
[2017-05-12] MEDS: ATIVAN IV SCH ×2 (01:33→13:50)
[2017-05-12] MEDS: LOVENOX SUB-Q SCH (09:55)
--- NOTE | 2017-05-12 10:23 | Progress Note ---
Assessment and Plan 52 y.o. F presented to the hospital with nausea and vomiting s/p hiatal hernia repair and laparoscopic sleeve gastrectomy, esophagel and sleeve dilation: - UGI series: similar to previous. Full liquid, with boost strawberry, yesterday no complaints, well tolerated. Will advance to regular diet today with same supplements. - Continue sitting up for 2 hrs after eating or drinking and no po intake 2 hr prior to laying down for sleep/rest, patient did as instructed and tolerated well last evening. NO additional EGD performed. Emulate sleeping position at home tonight and see if necessary to remain elevated at all times even during sleep. -caninda esophagitis - continue diflucan IV for 1 week (on day 4 currently) - nausea control: ativan, zofran, reglan, phenergren -Follow up on am labs. -Nutrition: TPN- nutrition consulted.- lipids will be held when the pt is for dc as they are concern for causing nausea and vomiting. vaginal discharge - ORAL SURGERY TECHNICIAN consulted. will follow up adwoaley as outpt -GI and dvt prophylaxis Subjective Patient Reports: Narrative: Overnight no new complaints. Patient denies any nausea or vomiting. She states that she sat up for 2 hours as instructed after liquids. She did not eat anything past 8pm. She complains of cramping abdominal pain. She denies any GERD symptoms or burning sensation in oropharynx. She was ambulatory last evening. Had 3 loose, green/dark brown BM yesterday, and has flatulence. She is tolerating full liquids fine and received boost shakes. Denies any chest pain, SOB, or urination issues at this time. Patient stated that at home she lies flat on her side and not elevated. Objective Vital Signs - 12hr 05/11/17 05/12/17 23:40 08:54 Temperature 99.1 F 98.9 F Pulse Rate 87 83 Respiratory 18 18 Rate Blood Pressure 103/56 110/63 O2 Sat by Pulse 97 100 Oximetry - General physical appearance well developed, no distress - Respiratory normal expansion, normal respiratory effort, clear to auscultation - Abdomen other (Well-healed scars, obese. BS hyperactive. ND, soft. Tenderness to palpation of epigastric area of abdomen. No other tenderness noted in other abdominal quadrants. No organomegaly or masses noted. No rebound or guarding noted. ) - Integumentary no rash, no growths - Neurologic normal coordination, normal sensation - Musculoskeletal other (No pitting edema noted bilaterally in lower extremity from knee downwards. Dorsalis pedis pulse present in bilaterally lower extremites, +2. ) - Psychiatric oriented to time, oriented to person, oriented to place - Additional Exam Cardiac exam revealed S1/S2 heart sounds in all heart areas, no M/R/G noted. - Labs 05/10/17 07:00 05/11/17 Unknown
[2017-05-12 13:07] LABS: BUN/Creatinine Ratio 18; Blood Urea Nitrogen 11 mg/dL (7-17); Calcium 8.2 mg/dL (8.4-10.2); Hemolysis Index 5
[2017-05-12] MEDS: DIFLUCAN 200 MG/100 ML BAG IV SCH (16:00)
[2017-05-12] MEDS ORDERED: TPN ADULT IV SCH (20:00)
[2017-05-13] MEDS: ATIVAN IV SCH ×2 (01:03→07:26)
[2017-05-13] MEDS: ZOFRAN IV SCH ×2 (01:05→07:26)
[2017-05-13] MEDS: REGLAN IV SCH ×3 (01:05→10:54)
[2017-05-13] MEDS: CARAFATE PO SCH ×3 (01:05→17:22)
[2017-05-13] MEDS: PROTONIX IV SCH ×2 (01:05→10:21)
--- NOTE | 2017-05-13 10:03 | Progress Note ---
Assessment and Plan 52 y.o. F presented to the hospital with nausea and vomiting s/p hiatal hernia repair and laparoscopic sleeve gastrectomy, esophagel and sleeve dilation: - UGI series: similar to previous. Tolerated Full liquids, with boost strawberry. Advanced to regular diet with boost supplements yesterday, tolerating well. - Continue sitting up for 2 hrs after eating or drinking and no po intake 2 hr prior to laying down for sleep/rest, patient did as instructed and tolerating well. NO additional EGD performed. Slept in upright position again last night and explained that she will need to continue this sleeping position at home. -Advised to continue using food diary to log what she eats/when and if any complaints. -Transitioning to PO medications today, except for diflucan which will remain as is until last dose. -caninda esophagitis - continue diflucan IV for 1 week (on day 09/03 ) -AM labs reviewed. - nausea control:, zofran, reglan, phenergren -Nutrition: TPN- nutrition consulted.- lipids will be held when the pt is for dc as they are concern for causing nausea and vomiting. vaginal discharge - EMBEDDED DEVELOPER consulted. Plan to give outpatient information for women 's clinic for complaints of discharge. -GI and dvt prophylaxis dispo: Goal for DC is Sunday after she receives her last dose of diflucan. TPN without lipids for home. Subjective Narrative: No complaints overnight. Patient denies any nausea or vomiting. She states that she tolerated her boost shakes (1.5 quantity) yesterday as well as mashed potatoes. She complains of cramping abdominal pain when she eats, it takes approximately 20 minutes to subside. She states BM 4X yesterday, loose and brown in color. the crampy resolves after having a bm. She ambulated 3X yesterday and notes flatulence. She is continuing to follow instruction with sitting up 2 hours after eating. She did sleep sitting up last night and had no issues in the am. Objective Vital Signs - 12hr 05/12/17 05/13/17 05/13/17 23:13 01:00 03:20 Temperature 99.1 F 99.1 F 98.8 F Pulse Rate 74 60 80 Respiratory 14 18 16 Rate Blood Pressure 89/37 98/53 Blood Pressure 80/40 [Right] O2 Sat by Pulse 98 97 Oximetry 01/14/18 08:03 Temperature 99.1 F Pulse Rate 92 H Respiratory 16 Rate Blood Pressure 101/64 Blood Pressure [Right] O2 Sat by Pulse 97 Oximetry - General physical appearance well developed, no distress - Respiratory normal expansion, normal respiratory effort, clear to auscultation - Abdomen other (Well-healed scars present on abdomen. BS present. ND, soft, obese. Tenderness to palpation epigastric area, no other tenderness noted on abdominal quadrants. No guarding or rebound tenderness. No organomegaly or masses noted. ) - Integumentary no rash, no growths - Neurologic normal coordination, normal sensation - Musculoskeletal other (No pitting edema noted bilaterally in LE from the knee downward to ankle. DP and PT pulses present bilaterally, 2+) - Psychiatric oriented to time, oriented to person, oriented to place - Additional Exam Cardiac exam revealed S1/S2 in all heart areas, no extra sounds noted. No M/R/G appreciated. - Labs 05/10/17 07:00 05/13/17 10:36 Diabetes panel 05/12/17 Range/Units 12:41 Sodium 132 L (137-145) mmol/L Potassium 4.3 (3.6-5.0) mmol/L Chloride 96.5 L (98-107) mmol/L Carbon Dioxide 25 (22-30) mmol/L BUN 11 (7-17) mg/dL Creatinine 0.6 L (0.7-1.2) mg/dL Glucose 129 H (65-100) mg/dL Calcium 8.2 L (8.4-10.2) mg/dL Calcium panel 05/12/17 Range/Units 12:41 Calcium 8.2 L (8.4-10.2) mg/dL Phosphorus 3.10 D (2.5-4.5) mg/dL Pituitary panel 05/12/17 Range/Units 12:41 Sodium 132 L (137-145) mmol/L Potassium 4.3 (3.6-5.0) mmol/L Chloride 96.5 L (98-107) mmol/L Carbon Dioxide 25 (22-30) mmol/L BUN 11 (7-17) mg/dL Creatinine 0.6 L (0.7-1.2) mg/dL Glucose 129 H (65-100) mg/dL Calcium 8.2 L (8.4-10.2) mg/dL Adrenal panel 05/12/17 Range/Units 12:41 Sodium 132 L (137-145) mmol/L Potassium 4.3 (3.6-5.0) mmol/L Chloride 96.5 L (98-107) mmol/L Carbon Dioxide 25 (22-30) mmol/L BUN 11 (7-17) mg/dL Creatinine 0.6 L (0.7-1.2) mg/dL Glucose 129 H (65-100) mg/dL Calcium 8.2 L (8.4-10.2) mg/dL
[2017-05-13] MEDS: LOVENOX SUB-Q SCH (10:21)
[2017-05-13 11:28] LABS: BUN/Creatinine Ratio 22; Blood Urea Nitrogen 13 mg/dL (7-17); Calcium 8.2 mg/dL (8.4-10.2); Hemolysis Index 6
[2017-05-13] MEDS: REGLAN PO SCH ×2 (13:23→20:46)
[2017-05-13] MEDS: ZOFRAN ODT PO SCH ×2 (13:23→20:46)
[2017-05-13] MEDS: DIFLUCAN 200 MG/100 ML BAG IV SCH (15:37)
[2017-05-13] MEDS ORDERED: TPN ADULT 2,000 ML IV SCH ×2 (20:00)
[2017-05-14] MEDS: CARAFATE PO SCH ×4 (00:25→17:27)
[2017-05-14] MEDS: ZOFRAN ODT PO SCH ×4 (00:28→18:51)
[2017-05-14] MEDS: REGLAN PO SCH ×4 (00:28→18:51)
[2017-05-14 06:54] LABS: BUN/Creatinine Ratio 22; Blood Urea Nitrogen 13 mg/dL (7-17); Calcium 7.9 mg/dL (8.4-10.2); Hematocrit 26.2 % (30.3-42.9); Hemoglobin 8.5 gm/dl (10.1-14.3); Hemolysis Index 3; Mean Corpuscular HGB Conc 33 % (30-34); Mean Corpuscular Hemoglobin 30 pg (28-32); Mean Corpuscular Volume 94 fl (79-97); Platelet Count 296 K/mm3 (140-440); Red Blood Count 2.81 M/mm3 (3.65-5.03); Red Cell Distribution Width 16.5 % (13.2-15.2)
[2017-05-14 08:20] LABS: Band Neutrophils # (Manual) 0.1 K/mm3; Basophils % (Manual) 0 % (0.0-1.8); Total Cells Counted 100
[2017-05-14 08:22] LABS: Anisocytosis Few; Hypochromasia Few; Target Cells Rare
--- NOTE | 2017-05-14 09:42 | Progress Note ---
Assessment and Plan 52 y.o. F presented to the hospital with nausea and vomiting s/p hiatal hernia repair and laparoscopic sleeve gastrectomy, esophagel and sleeve dilation: - UGI series: similar to previous. Tolerated Full liquids, with boost strawberry. Advanced to regular diet with boost supplements yesterday, tolerating well. - Continue sitting up for 2 hrs after eating or drinking and no po intake 2 hr prior to laying down for sleep/rest, patient did as instructed and tolerating well. NO additional EGD performed. Slept in upright position again last night and explained that she will need to continue this sleeping position at home. -Advised to continue using food diary to log what she eats/when and if any complaints. -Transitioning to PO medications today, except for diflucan which will remain as is until last dose. -caninda esophagitis - continue diflucan IV for 1 week (on day 6 ) -AM labs reviewed. - nausea control:, zofran, reglan, phenergren -Nutrition: TPN- nutrition consulted.- lipids will be held when the pt is for dc as they are concern for causing nausea and vomiting. vaginal discharge - STOVE CLEANER consulted. Plan to give outpatient information for women 's clinic for complaints of discharge. -GI and dvt prophylaxis dispo: Goal for DC is Sunday after she receives her last dose of diflucan. TPN without lipids for home. Subjective Narrative: Pt feeling well. She has less spitting compared to yesterday. She did not feel nauseas when she woke up. She denies vomiting or regurg for the last 2 days. She does have abdominal cramping after eating but resolves after having bm. She denies fever or chlls. No n/v. +ambulation. Objective Vital Signs - 12hr 05/13/17 05/13/17 05/13/17 22:00 22:15 23:37 Temperature 99.0 F Pulse Rate 68 72 Respiratory 18 Rate Respiratory 18 Rate [Medial Abdomen] Blood Pressure Blood Pressure 96/58 [Right] O2 Sat by Pulse 100 100 Oximetry 05/14/17 07:12 Temperature 98.8 F Pulse Rate 81 Respiratory 20 Rate Respiratory Rate [Medial Abdomen] Blood Pressure 89/38 Blood Pressure [Right] O2 Sat by Pulse 95 Oximetry - General physical appearance well developed, well nourished, no distress - Respiratory normal expansion, normal respiratory effort - Abdomen soft, other (minimal tenderness epigastric area. no rebound no guarding ) - Neurologic normal coordination, normal sensation - Musculoskeletal normal posture - Psychiatric oriented to time, oriented to person, oriented to place, speech is normal - Labs 05/14/17 05:00 05/14/17 05:00 Diabetes panel 05/13/17 05/14/17 Range/Units 10:36 05:00 Sodium 136 L 136 L (137-145) mmol/L Potassium 5.0 3.9 D (3.6-5.0) mmol/L Chloride 99.5 99.0 (98-107) mmol/L Carbon Dioxide 23 25 (22-30) mmol/L BUN 13 13 (7-17) mg/dL Creatinine 0.6 L 0.6 L (0.7-1.2) mg/dL Glucose 101 H 112 H (65-100) mg/dL Calcium 8.2 L 7.9 L (8.4-10.2) mg/dL Calcium panel 05/13/17 05/14/17 Range/Units 10:36 05:00 Calcium 8.2 L 7.9 L (8.4-10.2) mg/dL Phosphorus 3.60 3.70 (2.5-4.5) mg/dL Pituitary panel 05/13/17 05/14/17 Range/Units 10:36 05:00 Sodium 136 L 136 L (137-145) mmol/L Potassium 5.0 3.9 D (3.6-5.0) mmol/L Chloride 99.5 99.0 (98-107) mmol/L Carbon Dioxide 23 25 (22-30) mmol/L BUN 13 13 (7-17) mg/dL Creatinine 0.6 L 0.6 L (0.7-1.2) mg/dL Glucose 101 H 112 H (65-100) mg/dL Calcium 8.2 L 7.9 L (8.4-10.2) mg/dL Adrenal panel 05/13/17 05/14/17 Range/Units 10:36 05:00 Sodium 136 L 136 L (137-145) mmol/L Potassium 5.0 3.9 D (3.6-5.0) mmol/L Chloride 99.5 99.0 (98-107) mmol/L Carbon Dioxide 23 25 (22-30) mmol/L BUN 13 13 (7-17) mg/dL Creatinine 0.6 L 0.6 L (0.7-1.2) mg/dL Glucose 101 H 112 H (65-100) mg/dL Calcium 8.2 L 7.9 L (8.4-10.2) mg/dL
[2017-05-14] MEDS: PROTONIX PO SCH (11:12)
[2017-05-14] MEDS: LOVENOX SUB-Q SCH (11:12)
[2017-05-14] MEDS: DIFLUCAN 200 MG/100 ML BAG IV SCH ×2 (17:18→21:53)
[2017-05-14] MEDS ORDERED: D5W/0.45% NACL/KCL 20 MEQ 20 MEQ/1,000 ML BAG IV SCH (19:00)
[2017-05-14] MEDS ORDERED: INTRALIPID 20% 250 ML IV SCH (20:00)
[2017-05-14] MEDS ORDERED: TPN ADULT 2,000 ML IV SCH (20:00)
[2017-05-15] MEDS: CARAFATE PO SCH ×3 (01:03→11:50)
[2017-05-15] MEDS: ZOFRAN ODT PO SCH ×3 (01:04→11:51)
[2017-05-15] MEDS: REGLAN PO SCH ×3 (01:04→11:51)
[2017-05-15 08:47] LABS: BUN/Creatinine Ratio 19; Blood Urea Nitrogen 13 mg/dL (7-17); Calcium 8.6 mg/dL (8.4-10.2); Hemolysis Index 1
[2017-05-15] MEDS: PROTONIX PO SCH (11:41)
[2017-05-15] MEDS: LOVENOX SUB-Q SCH (11:41)
--- NOTE | 2017-05-15 12:55 | Progress Note ---
Assessment and Plan 52 y.o. F presented to the hospital with nausea and vomiting s/p hiatal hernia repair and laparoscopic sleeve gastrectomy, esophagel and sleeve dilation: - UGI series: similar to previous. Tolerated Full liquids, with boost strawberry. Advanced to regular diet with boost supplements - Continue sitting up for 2 hrs after eating or drinking and no po intake 2 hr prior to laying down for sleep/rest, patient did as instructed and tolerating well. NO additional EGD performed. Slept in upright position again last night and explained that she will need to continue this sleeping position at home. -Advised to continue using food diary to log what she eats/when and if any complaints. -Transitioning to PO medications today, except for diflucan which will remain as is until last dose. -caninda esophagitis - continue diflucan IV - last dose today ) -AM labs reviewed. - nausea control:, zofran, reglan, phenergren --> pt to continue at home -Nutrition: TPN- nutrition consulted.- lipids will be held when the pt is for dc as they are concern for causing nausea and vomiting. vaginal discharge - MACHINED PARTS QUALITY INSPECTOR consulted. Plan to give outpatient information for women 's clinic for complaints of discharge. -GI and dvt prophylaxis Upper extremity arm pain: DVT ruled out. May use picc line dispo: Goal for DC is Sunday (today) after she receives her last dose of diflucan. TPN without lipids for home. Subjective Narrative: Pt feeling better. Denies nausea or vomiting. Spitting much less. Walking. +bm and flatus. Tolerating boost and some solid foods. Objective Vital Signs - 12hr 05/15/17 07:46 Temperature 98.0 F Pulse Rate 64 Respiratory 20 Rate Blood Pressure 89/50 O2 Sat by Pulse 98 Oximetry - General physical appearance well developed, well nourished - Respiratory normal expansion, normal respiratory effort - Abdomen soft, other (nontender, no rebound no guarding. ) - Integumentary no rash, no growths - Neurologic normal coordination, normal sensation - Musculoskeletal normal posture - Psychiatric oriented to time - Labs 05/14/17 05:00 05/15/17 07:50 Diabetes panel 05/15/17 Range/Units 07:50 Sodium 138 (137-145) mmol/L Potassium 4.1 (3.6-5.0) mmol/L Chloride 99.4 (98-107) mmol/L Carbon Dioxide 27 (22-30) mmol/L BUN 13 (7-17) mg/dL Creatinine 0.7 (0.7-1.2) mg/dL Glucose 100 (65-100) mg/dL Calcium 8.6 (8.4-10.2) mg/dL Calcium panel 05/15/17 Range/Units 07:50 Calcium 8.6 (8.4-10.2) mg/dL Phosphorus 4.00 (2.5-4.5) mg/dL Pituitary panel 05/15/17 Range/Units 07:50 Sodium 138 (137-145) mmol/L Potassium 4.1 (3.6-5.0) mmol/L Chloride 99.4 (98-107) mmol/L Carbon Dioxide 27 (22-30) mmol/L BUN 13 (7-17) mg/dL Creatinine 0.7 (0.7-1.2) mg/dL Glucose 100 (65-100) mg/dL Calcium 8.6 (8.4-10.2) mg/dL Adrenal panel 05/15/17 Range/Units 07:50 Sodium 138 (137-145) mmol/L Potassium 4.1 (3.6-5.0) mmol/L Chloride 99.4 (98-107) mmol/L Carbon Dioxide 27 (22-30) mmol/L BUN 13 (7-17) mg/dL Creatinine 0.7 (0.7-1.2) mg/dL Glucose 100 (65-100) mg/dL Calcium 8.6 (8.4-10.2) mg/dL
--- NOTE | 2017-05-15 13:38 | Discharge Summary ---
Providers - Providers Date of Admission: 05/08/17 14:05 Attending physician: YOLIS OWEN 05/08/17 16:25 Consult to Dietitian/Nutrition [CONS] Routine Physician Instructions: Reason For Exam: Reason for Consult: Write/Manage TPN/PPN 05/09/17 06:23 Consult to Case Management [CONS] Routine Services Needed at Discharge: Other Notified:: yes If yes, spoke with:: JULIANA Comment:: TPN question Additional Physician Instructions: is tpn at the hospital same as the one she is getting at home? 05/09/17 08:52 Consult to Physician [CONS] Routine Consulting Provider: RAINA CLARKE Reason For Exam: vaginal discharge Place consult to:: Dr Clarke Notified:: yes Phone number called:: [phone] If yes, spoke with:: Karyna Cullen called:: 10:15 Primary care physician: BETH GREER Hospitalization Hospital course: 52 y.o. F with hx of sleeve gastrectomy and hiatal hernia repair, redo- hiatal hernia repair, and reduction of hiatal hernia presented with n/v. She was recently discharged from hospital. At time of discharge she was tolerating liquids and solid food and po meds. She was not vomiting and had little spit up at time of discharge. 3 days after discharge she started to have more spit up and started vomiting. She feels the spitting and vomiting was caused by the lipids that were running via picc line at home. At time of admission she had not finished her course of diflucan. At time of admission she was made npo and then gradually advanced to clears then regular diet. She is keeping record of her food intake. Upper GI series was similar to previous. She was continued on her tpn but no lipids as fear of lipids causing her to be nauseas and vomiting. During her stay she also had vaginal discharge however SERVICE LEARNING COORDINATOR stated this issue was not an inpatient consult. She will follow up with SERVICE LEARNING COORDINATOR as an output for her vaginal discharge. At time of discharge she had completed her course of diflucan for her esophag. candidiasis. Prior to discharge she was tolerating diet without nausea or vomiting and minimal spitting. Disposition: - TO HOME OR SELFCARE Core Measure Documentation - Palliative Care Palliative Care/ Comfort Measures: Not Applicable - Core Measures Any of the following diagnoses?: none Exam - Physical Exam Narrative exam: no change from earlier - Constitutional Vitals: Temp Pulse Resp BP Pulse Ox 98.0 F 64 20 89/50 98 05/15/17 07:46 05/15/17 07:46 05/15/17 07:46 05/15/17 07:46 05/15/17 07:46 Plan Activity: no restrictions, other Diet: advance as tolerated, other (high protein. avoid carbonation. ) Additional Instructions: follow up with Dr. Owen in office in 1 weeks. Continue tpn at home. Call for appointment with SERVICE LEARNING COORDINATOR. Take medications as previously prescribed-reglan, zofran, pepcid and carafate. Follow up with: BETH GREER DO [Primary Care Provider] - 7 Days LORRI SHAVER MD [Staff Physician] - 7 Days
[2017-05-15] MEDS: DIFLUCAN 200 MG/100 ML BAG IV SCH (14:25)
[2017-05-15 17:07] VITALS: BP 106/57
[2017-05-15] MEDS ORDERED: TPN ADULT 2,016 ML IV SCH (20:00)
--- NOTE | 2017-05-17 11:37 | Vascular Lab Report ---
LEFT UPPER EXTREMITY VENOUS DUPLEX: REASON FOR EXAM: Pain of the left upper extremity COMMENTS ON THE LEFT: All arm veins visualized are freely compressible without evidence of internal echogenicity. The subclavian and internal jugular veins are free of thrombus. Flow is spontaneous and phasic throughout. Basilic vein PICC line noted. COMMENTS ON THE RIGHT: The subclavian and internal jugular veins are free of thrombus. IMPRESSION: No evidence of acute or chronic deep venous thrombosis in the left upper extremity.
== END 2017-05-15 16:30 | disposition home or self-care (01) | DRG 370 ==
LOC: UNDOADMIN 11:40 → 3A 11:40
PROVIDERS: ADMIT Specialist; ATTEND Specialist
DX: B37.81 Candidal esophagitis (principal); N89.8 Other specified noninflammatory disorders of vagina; I10 Essential (primary) hypertension; R60.0 Localized edema; Z90.3 Acquired absence of stomach [part of]; Z88.5 Allergy status to narcotic agent; Z90.49 Acquired absence of other specified parts of digestive tract
CPT/HCPCS: 36415; 74247; 80048; 80053; 83735; 84100; 84134; 85007; 85025; C9113; J1450; J1650; J1885; J2060; J2405; J2765; J3475; J7120; Q0162